=== PATIENT | male | born 1950 | race Caucasian/White ===

== ENCOUNTER 2019-04-26 03:29 | Emergency (ER) | payer OTHER ==
[2019-04-26 04:04] LABS: Absolute Lymphocytes (CBC) 1.5 K/uL (0.7-4.9); Basophils % 0.4 % (0-1.3); Hematocrit 39.5 % (39.6-49.0); MPV 7.7 fL (7.6-11.3); Protime INR 0.99; RBC Red Blood Cell Count 4.64 M/uL (4.33-5.43)
[2019-04-26] MEDS ORDERED: NA CHLORIDE 0.9% 500 ML ONE (04:18)
[2019-04-26 04:22] LABS: ALT/SGPT 44 U/L (12-78); AST/SGOT 32 U/L (15-37); Albumin 3.8 g/dL (3.4-5.0); Alkaline Phosphatase 52 U/L (45-117); BUN Blood Urea Nitrogen 14 mg/dL (7-18); Bicarbonate 28 mmol/L (21-32); Bilirubin Direct 0.2 mg/dL (0-0.2); Bilirubin Total 0.6 mg/dL (0.2-1.0); Glucose Level 94 mg/dL (74-106); Magnesium 2.1 mg/dL (1.8-2.4); NT PRO-BNP 797 pg/mL (<125); Potassium 3.8 mmol/L (3.5-5.1); Protein, Total 6.9 g/dL (6.4-8.2); Sodium Level 141 mmol/L (136-145); Troponin (Emerg Dept Use Only) < 0.02 ng/mL (0.0-0.045)
--- NOTE | 2019-04-26 05:55 | EDPHYS ---
Physician Documentation [facility] Name: Nafisa Paulson Age: 68 yrs Sex: Male : 1950 Arrival Date: 04/26/2019 Time: 03:31 Bed 3 Private MD: ED Physician Juan Canada HPI: 04/25 03:46 This 68 yrs old Male presents to ER via EMS with complaints of Fall Injury. scarlett 03:46 Details of fall: The patient fell from a height, off furniture. Onset: The scarlett symptoms/episode began/occurred just prior to arrival. Associated injuries: The patient sustained left eye, painful injury. Historical: - Allergies: 03:35 No Known Allergies; rr5 - Home Meds: 03:35 aspirin 81 mg Oral chew 1 tab once daily [Active]; Aricept Oral [Active]; acetaminophen rr5 325 mg Oral tab 1 tab [Active]; citalopram oral [Active]; Docusate Sodium Oral [Active]; fenofibrate oral oral [Active]; Hydrocortisone Topical [Active]; Lisinopril Oral [Active]; Melatonin Oral [Active]; metoprolol tartrate 50 mg Oral tab [Active]; Natural Tears (PF) ophthalmic [Active]; Neurontin Oral [Active]; Norvasc Oral [Active]; oxybutynin chloride Oral [Active]; Pepcid Oral [Active]; senna oral oral [Active]; Vitamin D Oral [Active]; - PMHx: 03:35 CVA; Dementia; Depression; Diabetes - IDDM; GERD; HLD; Hypertension; Schizophrenia; rr5 - Immunization history:: Adult Immunizations up to date. - Social history:: Smoking status: unknown. - Immunization history: Last tetanus immunization: unknown. - Family history:: not pertinent. ROS: 03:46 Constitutional: Negative for fever, chills, and weight loss, ENT: Negative for injury, scarlett pain, and discharge, Neck: Negative for injury, pain, and swelling, Cardiovascular: Negative for chest pain, palpitations, and edema, Respiratory: Negative for shortness of breath, cough, wheezing, and pleuritic chest pain, Abdomen/GI: Negative for abdominal pain, nausea, vomiting, diarrhea, and constipation, Back: Negative for injury and pain, : Negative for injury, bleeding, discharge, and swelling, MS/Extremity: Negative for injury and deformity, Skin: Negative for injury, rash, and discoloration, Neuro: Negative for headache, weakness, numbness, tingling, and seizure. 03:46 Eyes: Positive for Exam: 03:46 Constitutional: This is a well developed, well nourished patient who is awake, alert, scarlett and in no acute distress. Head/Face: Normocephalic, atraumatic. ENT: Nares patent. No nasal discharge, no septal abnormalities noted. Tympanic membranes are normal and external auditory canals are clear. Oropharynx with no redness, swelling, or masses, exudates, or evidence of obstruction, uvula midline. Mucous membranes moist. Neck: Trachea midline, no thyromegaly or masses palpated, and no cervical lymphadenopathy. Supple, full range of motion without nuchal rigidity, or vertebral point tenderness. No Meningismus. Chest/axilla: Normal chest wall appearance and motion. Nontender with no deformity. No lesions are appreciated. Cardiovascular: Regular rate and rhythm with a normal S1 and S2. No gallops, murmurs, or rubs. Normal PMI, no JVD. No pulse deficits. Respiratory: Lungs have equal breath sounds bilaterally, clear to auscultation and percussion. No rales, rhonchi or wheezes noted. No increased work of breathing, no retractions or nasal flaring. Abdomen/GI: Soft, non-tender, with normal bowel sounds. No distension or tympany. No guarding or rebound. No evidence of tenderness throughout. Back: No spinal tenderness. No costovertebral tenderness. Full range of motion. Male : Normal genitalia with no discharge or lesions. Skin: Warm, dry with normal turgor. Normal color with no rashes, no lesions, and no evidence of cellulitis. 03:46 Eyes: Periorbital structures: appear normal, no acute changes, Pupils: no acute changes, equal, round, and reactive to light and accomodation, Extraocular movements: intact throughout, Conjunctiva: normal, no acute changes, Corneas: are normal, no acute changes, Sclera: no appreciated abnormality, funduscopic exam reveals no obvious abnormalities, no acute changes, discs that are sharp, no appreciated papilledema, no retinal detachment, no enlargement of the optic cup, no appreciated A-V knicking, no evidence of cotton wool exudatates. 05:54 Eyes: Anterior chamber: normal, no acute changes, Lids and lashes: appear normal, no scarlett acute changes, Visual daley: no acute changes, Nystagmus: is not appreciated. Vital Signs: 03:35 BP 147 / 69; Pulse 50; Resp 17; Temp 97.9; Pulse Ox 98% ; Pain 0/10; rr5 04:20 BP 141 / 70; Pulse 51; Resp 11; Pulse Ox 97% ; Weight 86.18 kg; Height 6 ft. 0 in. rr5 (182.88 cm); 05:00 BP 137 / 67; Pulse 55; Resp 15; Temp 97.8; Pulse Ox 98% ; rr5 05:50 BP 154 / 67; Pulse 52; Resp 17; Temp 97.5; Pulse Ox 96% ; rr5 06:53 BP 146 / 69; Pulse 56; Resp 17; Temp 97.8; Pulse Ox 99% ; rr5 04:20 Body Mass Index 25.77 (86.18 kg, 182.88 cm) rr5 Seven Coma Score: 03:35 Eye Response: spontaneous(4). Verbal Response: oriented(5). Motor Response: obeys rr5 commands(6). Total: 15. Trauma Score (Adult): 03:35 Eye Response: spontaneous(1); Verbal Response: oriented(1); Motor Response: obeys rr5 commands(2); Systolic BP: > 89 mm Hg(4); Respiratory Rate: 10 to 29 per min(4); Welaka Score: 15; Trauma Score: 12 05:00 Eye Response: spontaneous(1); Verbal Response: oriented(1); Motor Response: obeys rr5 commands(2); Systolic BP: > 89 mm Hg(4); Respiratory Rate: 10 to 29 per min(4); Welaka Score: 15; Trauma Score: 12 MDM: 03:32 Patient medically screened. [facility] 03:48 Data reviewed: vital signs, nurses notes, lab test result(s), EKG, radiologic studies, [facility] CT scan, plain films. 04/25 03:46 Order name: Basic Metabolic Panel; Complete Time: 05:48 [facility] 04/25 03:46 Order name: CBC with Diff; Complete Time: 05:48 [facility] 04/25 03:46 Order name: LFT's; Complete Time: 05:48 [facility] 04/25 03:46 Order name: Magnesium; Complete Time: 05:48 [facility] 04/25 03:46 Order name: NT PRO-BNP; Complete Time: 05:48 [facility] 04/25 03:46 Order name: PT-INR; Complete Time: 05:48 [facility] 04/25 03:46 Order name: Troponin (emerg Dept Use Only); Complete Time: 05:49 [facility] 04/25 03:46 Order name: XRAY Chest (1 view) [facility] 04/25 03:46 Order name: EKG; Complete Time: 03:47 [facility] 04/25 03:46 Order name: Cardiac monitoring; Complete Time: 04:13 [facility] 04/25 03:46 Order name: EKG - Nurse/Tech; Complete Time: 04:13 [facility] 04/25 03:46 Order name: CT Head C Spine [facility] 04/25 03:51 Order name: Glucose, Ancillary Testing; Complete Time: 05:49 EDMS 04/25 03:46 Order name: IV Saline Lock; Complete Time: 03:49 [facility] 04/25 03:46 Order name: Labs collected and sent; Complete Time: 03:50 [facility] 04/25 03:46 Order name: O2 Per Protocol; Complete Time: 03:50 [facility] 04/25 03:46 Order name: O2 Sat Monitoring; Complete Time: 03:50 [facility] Administered Medications: 04:23 Drug: NS 0.9% 500 ml Route: IV; Rate: bolus; Site: right antecubital; rr5 05:15 Follow up: Response: No adverse reaction; IV Status: Completed infusion; IV Intake: rr5 500ml Disposition: 04/26/19 05:54 Discharged to Home. Impression: Fall due to bumping against object, Superficial injury of head. - Condition is Stable. - Discharge Instructions: Head Injury, Adult, Fall Prevention in the Home, Cajg-[id number], Head Injury, Adult, [id number]-[id number]. - Medication Reconciliation Form, Thank You Letter, Antibiotic Education, Prescription Opioid Use form. - Follow up: Private Physician; When: 2 - 3 days; Reason: Recheck today's complaints, Continuance of care, Re-evaluation by your physician. Follow up: Ramana Zaman MD; When: 2 - 3 days; Reason: Recheck today's complaints, Re-evaluation by your physician. - Problem is new. - Symptoms have improved. Signatures: Dispatcher [employer] EDJuan Chandler MD MD cha Leal, Jahala, RN RN jl7 Zeus Kang RN RN rr5 Corrections: (The following items were deleted from the chart) 05:55 05:54 04/26/2019 05:54 Discharged to Home. Impression: Fall due to bumping against scarlett object. Condition is Stable. Forms are Medication Reconciliation Form, Thank You Letter, Antibiotic Education, Prescription Opioid Use. Follow up: Private Physician; When: 2 - 3 days; Reason: Recheck today's complaints, Continuance of care, Re-evaluation by your physician. Follow up: Ramana Zaman; When: 2 - 3 days; Reason: Recheck today's complaints, Re-evaluation by your physician. Problem is new. Symptoms have improved. [facility] 07:55 05:55 04/26/2019 05:54 Discharged to Home. Impression: Fall due to bumping against jl7 object; Superficial injury of head. Condition is Stable. Discharge Instructions: Head Injury, Adult, Fall Prevention in the Home, Uukn-mx-Eluk, Head Injury, Adult, Iooj-vo-Bvvk. Forms are Medication Reconciliation Form, Thank You Letter, Antibiotic Education, Prescription Opioid Use. Follow up: Private Physician; When: 2 - 3 days; Reason: Recheck today's complaints, Continuance of care, Re-evaluation by your physician. Follow up: Ramana Zaman; When: 2 - 3 days; Reason: Recheck today's complaints, Re-evaluation by your physician. Problem is new. Symptoms have improved. [facility]
--- NOTE | 2019-04-26 05:55 | ER ---
Nurse's Notes [facility] Yasmani Name: Nafisa Paulson Age: 68 yrs Sex: Male : 1950 Arrival Date: 04/26/2019 Time: 03:31 Bed 3 Private MD: Diagnosis: Fall due to bumping against object;Superficial injury of head Presentation: 04/25 03:35 Chief complaint: EMS states: had a fall tonight between 9 pm-3am hit his left eye and rr5 complaining of blurred vision on his left eye. Coronavirus screen: The patient has NOT traveled to a country currently being monitored by the [facility] within the last 14 days. Proceed with normal triage procedures. Ebola Screen: Patient negative for fever greater than or equal to 101.5 degrees Fahrenheit, and additional compatible Ebola Virus Disease symptoms Patient denies exposure to infectious person. Patient denies travel to an Ebola-affected area in the 21 days before illness onset. Initial Sepsis Screen: Does the patient meet any 2 criteria? No. Patient's initial sepsis screen is negative. Does the patient have a suspected source of infection? No. Patient's initial sepsis screen is negative. Risk Assessment: Do you want to hurt yourself or someone else? Patient reports no desire to harm self or others. 03:35 Method Of Arrival: EMS: [facility] rr5 03:35 Acuity: JAVIER 3 rr5 03:35 Note patient had a fall incident 3 days ago hit hit nose bridge area. LOC (-) , has rr5 left left sided deficit stated by EMS. Onset of symptoms was April 25, 2019. Transition of care: patient was received from another setting of care (long-term care facility), [facility]. 03:35 Mechanism of Injury: Fall out of chair. rr5 03:35 Care prior to arrival: None. Trauma event details: Injury occurred in the county [place] [address], Injury occurred: home health Injury occurred: April 25, 2019. Trauma Activation: Not Applicable Physician: ED Physician; Name: ; Notified At: ; Arrived At: Physician: General Surgeon; Name: ; Notified At: ; Arrived At: Physician: Radiology; Name: ; Notified At: ; Arrived At: Physician: Respiratory; Name: ; Notified At: ; Arrived At: Physician: Lab; Name: ; Notified At: ; Arrived At: Historical: - Allergies: 03:35 No Known Allergies; rr5 - Home Meds: 03:35 aspirin 81 mg Oral chew 1 tab once daily [Active]; Aricept Oral [Active]; acetaminophen rr5 325 mg Oral tab 1 tab [Active]; citalopram oral [Active]; Docusate Sodium Oral [Active]; fenofibrate oral oral [Active]; Hydrocortisone Topical [Active]; Lisinopril Oral [Active]; Melatonin Oral [Active]; metoprolol tartrate 50 mg Oral tab [Active]; Natural Tears (PF) ophthalmic [Active]; Neurontin Oral [Active]; Norvasc Oral [Active]; oxybutynin chloride Oral [Active]; Pepcid Oral [Active]; senna oral oral [Active]; Vitamin D Oral [Active]; - PMHx: 03:35 CVA; Dementia; Depression; Diabetes - IDDM; GERD; HLD; Hypertension; Schizophrenia; rr5 - Immunization history:: Adult Immunizations up to date. - Social history:: Smoking status: unknown. - Immunization history: Last tetanus immunization: unknown. - Family history:: not pertinent. Screenin:30 Abuse screen: Denies threats or abuse. Denies injuries from another. Nutritional rr5 screening: No deficits noted. Tuberculosis screening: No symptoms or risk factors identified. Fall Risk Fall in past 12 months (25 points). IV access (20 points). Ambulatory Aid- None/Bed Rest/Nurse Assist (0 pts). Gait- Impaired (20 pts.). Mental Status- Oriented to own ability (0 pts). Total Esqueda Fall Scale indicates High Risk Score (45 or more points). Fall prevention measures have been instituted. Side Rails Up X 2 Placed Close to Nursing Station Frequent Obs/Assessments Occuring As available patient and family educated on Fall Prevention Program and Strategies. Primary Survey: 03:35 NO uncontrolled hemorrhage observed. A: The patient is alert. Airway: patent, No rr5 supplemental oxygen in use on arrival. Oral cavity: clear, gag reflex present, Trachea midline. 03:35 Breathing/Chest: Respiratory pattern: regular, Respiratory effort: spontaneous, rr5 unlabored, Breath sounds: clear, bilaterally. Chest inspection: symmetrical rise and fall of the chest. Circulation: Cardiac rhythm: sinus bradycardia Heart tones present. Pulses: palpable right radial artery and left radial artery. Skin color: pink, Skin temperature: warm, dry. Disability Alert. Exposure/Environment: There is no evidence of uncontrolled external bleeding. Obvious injury(ies) are noted at this time: small abrasion to nose bridge area sustained from previous fall 3 days ago. mild redness left eye noted. A warming method has been applied: A warm blanket has been provided to the patient. 04:28 Reassessment Airway Airway Patent Breathing/Chest Respiratory pattern Regular rr5 Respiratory effort Spontaneous Unlabored Breath sounds Clear Chest inspection Symmetrical Circulation Heart rhythm Sinus steven Heart tones Present Pulses Palpable Color Tolu Temperature Warm Dry Disability Alert. Secondary Survey: 03:35 HEENT: Head No injury/deformity Face Other abrasion on nose bridge Eyes: Other mild rr5 redness on the left eye Ears: clear bilaterally. Nose: clear to bilateral nares. Throat: is clear with gag reflex present. 03:35 Gastrointestinal: No deficits noted. : No deficits noted. Musculoskeletal: Capillary rr5 refill < 3 seconds, stiff left arm noted. patient known case of left side deficit from previous stroke.'. Assessment: 03:35 General: Appears in no apparent distress. comfortable, Behavior is calm, cooperative, rr5 appropriate for age. 03:35 Pain: Denies pain. Neuro: Level of Consciousness is awake, alert, obeys commands, rr5 Oriented to person, place, situation. Cardiovascular: Capillary refill < 3 seconds Patient's skin is warm and dry. Respiratory: Airway is patent Respiratory effort is even, unlabored, Respiratory pattern is regular, symmetrical. GI: No signs and/or symptoms were reported involving the gastrointestinal system. : No signs and/or symptoms were reported regarding the genitourinary system. EENT: Eyes mild redness left eye. Derm: Skin is intact, is healthy with good turgor, Skin temperature is warm Wound noted bridge of nose Wound is abrasion. Musculoskeletal: Circulation, motion, and sensation intact. Capillary refill < 3 seconds, Range of motion: limited in left shoulder and left elbow stiffness on the left arm noted. left sided deficit noted. 05:00 Reassessment: Patient appears in no apparent distress at this time. Patient is alert, rr5 oriented x 3, equal unlabored respirations, skin warm/dry/pink. awaiting for CT result. Patient denies pain at this time. 05:48 Reassessment: Patient appears in no apparent distress at this time. Patient is alert, rr5 oriented x 3, equal unlabored respirations, skin warm/dry/pink. assisted at bedside patient able to pee on the urinal. 06:03 Reassessment: No changes from previously documented assessment. patient for discharge rr5 called [facility] alyssa nagy [employer] staff to arrange transport, she said she tell his nurse to arrange the transportation. 06:52 Reassessment: Patient appears in no apparent distress at this time. follow up to [facility] spoke staff nurse jessica, she said transportation will arrive around 0800H. Vital Signs: 03:35 BP 147 / 69; Pulse 50; Resp 17; Temp 97.9; Pulse Ox 98% ; Pain 0/10; rr5 04:20 BP 141 / 70; Pulse 51; Resp 11; Pulse Ox 97% ; Weight 86.18 kg; Height 6 ft. 0 in. rr5 (182.88 cm); 05:00 BP 137 / 67; Pulse 55; Resp 15; Temp 97.8; Pulse Ox 98% ; rr5 05:50 BP 154 / 67; Pulse 52; Resp 17; Temp 97.5; Pulse Ox 96% ; rr5 06:53 BP 146 / 69; Pulse 56; Resp 17; Temp 97.8; Pulse Ox 99% ; rr5 04:20 Body Mass Index 25.77 (86.18 kg, 182.88 cm) rr5 Austin Coma Score: 03:35 Eye Response: spontaneous(4). Verbal Response: oriented(5). Motor Response: obeys rr5 commands(6). Total: 15. Trauma Score (Adult): 03:35 Eye Response: spontaneous(1); Verbal Response: oriented(1); Motor Response: obeys rr5 commands(2); Systolic BP: > 89 mm Hg(4); Respiratory Rate: 10 to 29 per min(4); Austin Score: 15; Trauma Score: 12 05:00 Eye Response: spontaneous(1); Verbal Response: oriented(1); Motor Response: obeys rr5 commands(2); Systolic BP: > 89 mm Hg(4); Respiratory Rate: 10 to 29 per min(4); Austin Score: 15; Trauma Score: 12 ED Course: 03:30 Inserted saline lock: 18 gauge in right antecubital area, using aseptic technique. rr5 ,using aseptic technique. inserted by aaron [facility] Blood collected. 03:31 Patient arrived in ED. ds1 03:32 Juan Canada MD is Attending Physician. scarlett 03:35 Zeus Kang, CLARISSE is Primary Nurse. rr5 03:35 Arm band placed on right wrist. rr5 03:35 Patient has correct armband on for positive identification. Placed in gown. Bed in low rr5 position. Call light in reach. Side rails up X2. 03:35 Patient maintains SpO2 saturation greater than 95% on room air. rr5 03:39 Triage completed. rr5 03:43 Thermoregulation: warm blanket given to patient. rr5 03:50 Troponin (emerg Dept Use Only) Sent. ds4 03:50 PT-INR Sent. ds4 03:50 Basic Metabolic Panel Sent. ds4 03:51 CBC with Diff Sent. ds4 03:51 LFT's Sent. ds4 03:51 Magnesium Sent. ds4 03:51 NT PRO-BNP Sent. ds4 03:59 XRAY Chest (1 view) In Process Unspecified. EDMS 04:30 CT Head C Spine In Process Unspecified. EDMS 05:12 No provider procedures requiring assistance completed. rr5 05:53 Ramana Zaman MD is Referral Physician. scarlett 07:47 IV discontinued, intact, bleeding controlled, No redness/swelling at site. Pressure dh3 dressing applied. 07:54 IV discontinued, intact, bleeding controlled, No redness/swelling at site. Pressure jl7 dressing applied. Administered Medications: 04:23 Drug: NS 0.9% 500 ml Route: IV; Rate: bolus; Site: right antecubital; rr5 05:15 Follow up: Response: No adverse reaction; IV Status: Completed infusion; IV Intake: rr5 500ml Intake: 05:15 IV: 500ml; Total: 500ml. rr5 07:55 PO: 0ml; IV: 0ml; Tubes: 0ml (); Total: 500ml. jl7 Output: 05:49 Urine: 250ml (Voided); Total: 250ml. rr5 07:55 Urine: 0ml; Gastric: 0ml; Stool: 0; EBL: 0ml; Drainage: 0ml; Other: 0; Total: 250ml. jl7 Outcome: 05:54 Discharge ordered by MD. pantoja 07:53 Patient's length of stay was not longer than 2 hours. Marek 07:53 Discharged to [facility]. jl7 07:53 Condition: stable 07:53 Discharge instructions given to patient, [facility], Instructed on discharge instructions, follow up and referral plans. Demonstrated understanding of instructions, follow-up care. 07:55 Patient left the ED. jl7 Signatures: Dispatcher [employer] EDIL Juan Canada MD MD cha Sanford, Demi ds1 Mata Burrows ds4 Pierce Johnson RN RN jl7 Lizzy Madden 3 Zeus Kang, RN RN rr5 Corrections: (The following items were deleted from the chart) 05:12 03:35 Musculoskeletal: Circulation, motion, and sensation intact. Capillary refill < 3 rr5 seconds, rr5
--- NOTE | 2019-04-26 07:28 | EKG ---
Test Date: 2019-04-26 Test Time: 04:03:22 Oil Well Driller: EMELINA MEASUREMENT RESULTS: Intervals: Rate: 52 HI: 180 QRSD: 80 QT: 482 QTc: 448 [place]: P: 4 HI: 180 QRS: -25 T: 10 INTERPRETIVE STATEMENTS: Sinus bradycardia Moderate voltage criteria for LVH, may be normal variant Borderline ECG Compared to ECG 05/21/2015 17:13:44 No significant changes Electronically Signed On 04-26-19 07:27:22 CDT by Ammon Loaiza
[2019-04-26 08:10] VITALS: BP 146/69; TEMP 97.8; O2SAT 99
--- NOTE | 2019-04-26 08:44 | RAD REPORT ---
EXAM DESCRIPTION: RAD - Chest Single View - 04/26/2019 3:58 am CLINICAL HISTORY: COUGH COMPARISON: May 2015 portable TECHNIQUE: AP portable chest image was obtained 04/26/2019 3:58 am . FINDINGS: Lung volumes are low. Retrocardiac left base assessment is limited. Left hemidiaphragm is not obscured. Heart size is upper normal for body habitus and shallow inspiration. Pulmonary vasculat ure within normal limits. No measurable pleural effusion and no pneumothorax. No acute bony abnormali ty seen. No acute aortic findings suspected. IMPRESSION: No acute cardiopulmonary finding confirmed on this study. Failure and volume overload ar e not suspected. Retrocardiac left base assessment is limited on this examination.
--- NOTE | 2019-04-26 12:03 | RAD REPORT ---
EXAM DESCRIPTION: CT - [id number] - 04/26/2019 5:57 am CLINICAL HISTORY: The patient is 68 years old and is Male; PAIN TECHNIQUE: Axial computed tomography images of the head/brain and cervical spine without intravenous contrast. Sagittal and coronal reformatted images were created and reviewed. This CT exam was pe rformed using one or more of the following dose reduction techniques: automated exposure control, a djustment of the mA and/or kV according to patient size, and/or use of iterative reconstruction techn ique. COMPARISON: No relevant prior studies available. FINDINGS: BRAIN: There is diffuse cerebral atrophy present, consistent with this patient's age. No intracranial hemorrhage, mass effect, or midline shift is seen. There are no extra-axial fluid col lections. There is patchy hypoattenuation of the deep white matter which is non-specific, but most likely owing to chronic small vessel ischemic change in a patient of this age group. VENTRICLES: Unremarkable. No ventriculomegaly. SKULL: No acute fracture. SINUSES: Unremarkable as visualized. No acute sinusitis. MASTOID AIR CELLS: Unremarkable as visualized. No mastoid effusion. VERTEBRAE: The vertebral body heights and alignment are maintained. No acute fracture. DISCS/SPINAL CANAL/NEURAL FORAMINA: Multilevel intervertebral disc space narrowing with osteophy te formation and facet arthropathy is present. Neural foraminal narrowing is noted at multiple levels secondary to disc osteophyte complexes. SOFT TISSUES: The soft tissues are normal. LUNG APICES: Unremarkable as visualized. IMPRESSION: 1. No acute intracranial findings. 2. Spondylosis of the cervical spine without acute findings. Electronically signed by: Elisa Bullock MD 04/26/2019 5:06 AM CDT Due to temporary technical issues with the PACS/Fluency reporting system, reports are being signed by the in house radiologist as a courtesy to ensure prompt reporting. The interpreting radiologist is f ully responsible for the content of the report.
== END 2019-04-26 07:55 | disposition home or self-care (01) ==
LOC: ER 03:29
DX: S00.90XA Unspecified superficial injury of unspecified part of head, initial encounter (principal); W08.XXXA Fall from other furniture, initial encounter; Y93.9 Activity, unspecified; Y92.9 Unspecified place or not applicable; I10 Essential (primary) hypertension; E11.9 Type 2 diabetes mellitus without complications; F03.90 Unspecified dementia, unspecified severity, without behavioral disturbance, psychotic disturbance, mood disturbance, and anxiety; F32.9 Major depressive disorder, single episode, unspecified; Z79.82 Long term (current) use of aspirin
CPT/HCPCS: 93005; 85025; 80048; 36415; 83735; 85610; 82947; 80076; 84484; 83880; 70450; 72125; 71045; 96360; 99284; J7040

== ENCOUNTER 2019-07-24 12:36 | Emergency (ER) | payer OTHER ==
--- OUTSIDE RECORDS SUMMARY | 2019-07-24 12:40 | XMS REPORT | Continuity of Care Document ---
:1950 Author Organization [facility] t Address [address] [place] [id number] Care Team Providers Name Role Phone DR NEVAEH Attending Clinician Unavailable DR NEVAEH Admitting Clinician Unavailable Problems This patient has no known problems. Allergies, Adverse Reactions, Alerts This patient has no known allergies or adverse reactions. Medications This patient has no known medications. Procedures This patient has no known procedures. Encounters Start End Encounter Admission Attending Care Care Encounter Source Date/Time Date/Time Type Type Clinicians Facility Department ID 2019-06-03 2019-06-17 Inpatient E [facility] [id number] [address] [place] [address] 17:10:00 11:05:00 [facility] Results Test Description Test Time Test Comments Results Result Comments Source VALPROIC ACID (DEPAKENE) 2019-06-13 07:05:00 Test Item Value Reference Range Interpretation Comme nts VALP ACID (test code = 95A) 63.0 ug/mL 50.0-100.0 VALPROIC ACID (DEPAKENE)2019-06-09 06:51:00 Test Item Value Reference Range Interpretation Comments VALP ACID (test code = 95A) 57.5 ug/mL 50.0-100.0 AMMONIA [id number] 05:25:00 Test Item Value Reference Range Interpretation Comments AMMONIA (test code = 54A) 31 umol/L 11-32 B12 [id number] 20:14:00 Test Item Value Reference Range Interpretation Comments VIT B12 (test code = A60) 464.0 pg/mL 180.0-914.0 [id number] 20:14:00 Test Item Value Reference Range Interpretation Comments FOLATE (test code = A75) 8.1 ng/mL 3.1-17.5 THYROID PANEL/SCREEN (TSH)2019-06-03 20:04:00 Test Item Value Reference Range Interpretation Comments TSH (test code = A57) 0.541 uIU/mL 0.358-3.740 [id number] 20:03:00 Test Item Value Reference Range Interpretation Comments PREALBUMIN (test code = 08E) 18 mg/dL 18-38 LIPID [id number] 20:03:00 Test Item Value Reference Range Interpretation Comments CHOLESTROL (test code = 44A) 121 mg/dL 140-200 L TRIGLYCERI (test code = 42B) 96 mg/dL <=149 HDL (test code = 83D) 34.0 mg/dL 40.0-60.0 L LDL (test code = 34B) 76 mg/dL <=99 CHL/HDL (test code = CHR) 3.6 0.0-3.4 H VALPROIC ACID (DEPAKENE)2019-06-03 19:59:00 Test Item Value Reference Range Interpretation Comments VALP ACID (test code = 95A) 65.0 ug/mL 50.0-100.0 [id number] 19:45:00 Test Item Value Reference Range Interpretation Comments MAGNESIUM (test code = 48A) 1.8 mg/dL 1.8-2.4 [id number] 19:44:00 Test Item Value Reference Range Interpretation Comments Hb A1C % (test code = HBA) 5.2 % 4.2-6.3 [id number] 16:30:00 Test Item Value Reference Range Interpretation Comments ACETAMINPH (test code = 94M) <10.0 ug/mL 10.0-30.0 [id number] 16:23:00 Test Item Value Reference Range Interpretation Comments SALICYLATE (test code = 94B) <1.7 mg/dL 2.8-20.0 L ALCOHOL BLOOD (ETOH)2019-06-03 16:23:00 Test Item Value Reference Range Interpretation Comments ETOH (test code = HALC) ETHANOL The result is to be used only for medical purposes ALCOHOL (test code = <10 mg/dL <=10 56A) COMPREHENSIVE METABOLIC [id number] 16:22:00 Test Item Value Reference Range Interpretation Comments GLUCOSE (test code = 113 mg/dL 75-100 H 06D) SODIUM (test code = 129 mmol/L 136-145 L 01A) POTASSIUM (test code = 4.3 mmol/L 3.6-5.1 01B) CHLORIDE (test code = 96 mmol/L 98-107 L 04A) CO2 (test code = 02A) 27 mmol/L 22-32 ANION GAP (test code = 10.3 mmol/L ANG) BUN (test code = 05D) 12 mg/dL 7-18 CREATININE (test code 1.0 mg/dL 0.7-1.3 = 03E) GFR (test code = GFR) 78 mL/min/1.73m\S\2 >=90 L GFR 91 mL/min/1.73m\S\2 >=90 (test code = GFRAA) EGFR (test code = eGFR BY CKD-EPI EGFR) CALCULATION IS NOT RECOMMENDED FOR PATIENTS UNDER 18 YEARS OF AGE. BUN/CREA (test code = 12 12-20 BCR) CALCIUM (test code = 9.1 mg/dL 8.3-9.5 09D) BILI TOTAL (test code 0.5 mg/dL 0.2-1.0 = 11A) PROTEIN (test code = 6.5 g/dL 6.4-8.2 07D) ALBUMIN (test code = 3.2 g/dL 3.5-4.8 L 08D) GLOBULIN (test code = 3.3 g/dL 1.5-3.8 GLB) ALB/GLOB (test code = 1.0 1.0-2.6 AGRR) ALK PHOS (test code = 92 IU/L 42-121 35A) AST (test code = 30A) 30 IU/L <=42 ALT (test code = 31A) 37 IU/L <=78 CARDIAC [id number] 16:15:00 Test Item Value Reference Range Interpretation Comments TROPONIN I (test code = A84) <0.015 ng/mL 0.000-0.045 AMMONIA [id number] 16:08:00 Test Item Value Reference Range Interpretation Comments AMMONIA (test code = 54A) 77 umol/L 11-32 H CBC (INCLUDES AUTOMATED DIFFERENTIAL)2019-06-03 15:55:00 Test Item Value Reference Range Interpretation Comments WBC (test code = WBC) 7.5 10\S\3/uL 4.5-11.0 RBC (test code = RBC) 4.22 10\S\6/uL 3.80-5.80 HGB (test code = HBG) 12.4 g/dL 14.0-18.0 L HCT (test code = HCT) 35.8 % 35.0-46.0 MCV (test code = MCV) 84.8 fL 80.0-94.0 MCH (test code = MCH) 29.4 pg 27.0-31.0 MCHC (test code = MCHC) 34.6 g/dL 32.0-36.0 RDW (test code = RDW) 13.3 % 11.5-14.5 PLT (test code = PLT) 205 10\S\3/uL 130-400 MPV (test code = MPV) 8.7 fL 9.4-12.4 L NEUTROP # (test code = NE#) 5.7 10\S\3/uL 2.0-8.0 LYMPH # (test code = LY#) 0.9 10\S\3/uL 1.2-4.0 L MONOCYTE # (test code = MO#) 0.7 10\S\3/uL 0.0-1.1 EOSINOPH # (test code = EO#) 0.2 10\S\3/uL 0.0-0.7 BASOPHIL # (test code = BA#) 0.0 10\S\3/uL 0.0-0.3 IG # (test code = IG#) 0.03 10\S\3/uL 0.00-0.06 NRBC # (test code = NRBC#) 0.00 10\S\3/uL 0.00-0.01 NEUTROPH % (test code = NE%) 75.9 % 35.0-73.0 H LYMPH % (test code = LY%) 11.8 % 20.0-55.0 L MONO % (test code = MO%) 9.1 % 2.5-10.0 EOSINOPH % (test code = EO%) 2.8 % 0.0-5.0 BASOPHIL % (test code = BA%) 0.0 % 0.0-2.0 IG % (test code = IG%) 0.4 % 0.0-0.8 NRBC% (test code = NRBC%) 0.0 % 0.0-0.2 MANDIFF (test code = MDIFF) NO NO URINALYSIS WITH [id number] 15:15:00 Test Item Value Reference Range Interpretation Comments COLOR (test code = COLU) YELLOW YELLOW CLARITY (test code = CLA) CLOUDY CLEAR A GLUCOSE UR (test code = UA GLUCOSE) NEGATIVE NEGATIVE BILI UR (test code = BILE) NEGATIVE NEGATIVE KETONES UR (test code = CONNIE) NEGATIVE NEGATIVE SP GRAVITY (test code = SPGR) 1.012 1.005-1.030 PH UR (test code = PH) 7.0 4.5-8.0 PROTEIN UR (test code = PU) NEGATIVE NEGATIVE UROBIL UR (test code = UROQ) 1.0 EU/dL 0.2-1.0 NITRITE UR (test code = NITRITE) NEGATIVE NEGATIVE BLOOD UR (test code = UA BLOOD) NEGATIVE NEGATIVE LEUK ES UR (test code = LEUK) 3+ NEGATIVE A WBC UR (test code = UWBC) 3 /HPF 0-3 RBC UR (test code = URBC) 0 /HPF 0-2 EPITH UR (test code = UEPC) FEW /LPF NONE A BACTERIA UR (test code = UBACT) MANY /HPF NONE A CAST UR (test code = CAST) /LPF NONE CRYSTAL UR (test code = CRYU) / LPF NONE MUCUS UR (test code = MUC) / HPF NONE AMORPH UR (test code = MYNOR) / HPF NONE TRICH UR (test code = UTRICH) /HPF NONE YEAST UR (test code = UY) /HPF NONE SPERM UR (test code = USPERM) /HPF NONE DRUGS OF [id number] 15:15:00 Test Item Value Reference Range Interpretation Comments DRUG SCRN (test code URINE DRUG SCREEN = HDOA) This is an unconfirmed screening result and should not be used for non-medical purposes CANNABINOD (test code Negative NEGATIVE = 88C) AMPHETAMINE (test Negative NEGATIVE code = 84A) BENZODIAZP (test code Negative NEGATIVE = 86A) BARBITURAT (test code Negative NEGATIVE = 85A) OPIATES (test code = Negative NEGATIVE 92B) COCAINE (test code = Negative NEGATIVE 87A) PHENCYCLID (test code Negative NEGATIVE = 66A) METHADONE (test code Negative NEGATIVE = 64A) VERONICA (test code = VERONICA.) *URINE DRUG SCREEN Cut-off values are as follows: Cannabinoids 50 ng/mL Cocaine 300 ng/mL Amphetamines 1000 ng/mL Phencyclidine 25 ng/mL Benzodiazepines 200 ng.mL Methadone 300 ng/mL Barbiturates 200 ng/mL Opiates 2000 ng/mL
--- NOTE | 2019-07-24 13:15 | RAD REPORT ---
EXAM DESCRIPTION: CT - Head Brain Wo Cont - 07/24/2019 1:03 pm CLINICAL HISTORY: Dizziness;Trauma Fall, trauma, head injury COMPARISON: Head Brain Wo Cont dated 05/21/2015 TECHNIQUE: All CT scans are performed using dose optimization technique as appropriate and may inclu de automated exposure control or mA/KV adjustment according to patient size. FINDINGS: No intracranial hemorrhage, hydrocephalus or extra-axial fluid collection.Moderate brain a trophy seen.No areas of brain edema or evidence of midline shift. The paranasal sinuses and mastoids are clear. The calvarium is intact. IMPRESSION: No acute intracranial abnormality.
[2019-07-24] MEDS ORDERED: NA CHLORIDE 0.9% 1,000 ML ONE (13:17)
[2019-07-24 13:32] LABS: Basophils % 0.3 % (0-1.3); Hematocrit 34.4 % (39.6-49.0); Lymphocytes % 16.9 % (15.3-44.8); MPV 7.6 fL (7.6-11.3); RBC Red Blood Cell Count 4.04 M/uL (4.33-5.43)
[2019-07-24 13:49] LABS: Albumin 3.1 g/dL (3.4-5.0); Bilirubin Direct 0.2 mg/dL (0-0.2); Bilirubin Total 0.4 mg/dL (0.2-1.0); Magnesium 1.8 mg/dL (1.8-2.4); Potassium 4.2 mmol/L (3.5-5.1)
--- NOTE | 2019-07-24 13:55 | EDPHYS ---
Physician Documentation [facility] Name: Nafisa Paulson Age: 68 yrs Sex: Male : 1950 Arrival Date: 07/24/2019 Time: 12:35 Bed 2 Private MD: ED Physician Juan Canada HPI: 07/23 13:24 This 68 yrs old Male presents to ER via EMS with complaints of Fall Injury. jr8 13:24 Details of fall: The patient fell from an upright position, while standing. Onset: The jr8 symptoms/episode began/occurred acutely, today. Associated injuries: The patient sustained injury to the head. Severity of symptoms: At their worst the symptoms were mild. It is unknown whether or not the patient has had similar symptoms in the past. The patient has not recently seen a physician. Patient stated that he was getting out of wheelchair. Twisted and tripped hitting head on side of trash can. Denies LOC. Currently without pain per patient. Patient noted to have slurred speech. Stated that it has been going on for a while . Historical: - Allergies: 12:52 No Known Allergies; ph - Home Meds: 12:52 acetaminophen 325 mg Oral tab 1 tab [Active]; Aricept 10 mg oral tab 1 tab nightly ph [Active]; aripiprazole 15 mg oral tab 1 tab once daily [Active]; aspirin 81 mg Oral chew 1 tab once daily [Active]; atorvastatin 40 mg oral tab 1 tab once daily [Active]; benztropine 0.5 mg Oral tab 1 tab once daily [Active]; buspirone 5 mg Oral tab 0.5 tab nightly [Active]; buspirone 5 mg Oral tab 1 tab daily [Active]; citalopram 20 mg oral tab 1 tab nightly [Active]; divalproex 125 mg oral cpSP 3 caps 3 times per day [Active]; docusate sodium 100 mg oral tab 1 tab once daily [Active]; fenofibrate 134 mg Oral once daily [Active]; lisinopril 40 mg oral tab 1 tab once daily [Active]; melatonin 10 mg oral cap daily [Active]; memantine 10 mg oral tab 1 tab 2 times per day [Active]; metoprolol tartrate 25 mg Oral tab 1 tab 2 times per day [Active]; Natural Tears (PF) ophthalmic [Active]; Neurontin 100 mg oral cap 3 times per day [Active]; Norvasc 10 mg oral tab 1 tab once daily [Active]; oxybutynin chloride 5 mg oral tab 1 tab 2 times per day [Active]; Pepcid 20 mg oral tab 1 tab nightly [Active]; senna 8.6 mg oral tab 2 tabs once daily [Active]; Seroquel 25 mg Oral tab 1 tab 2 times per day [Active]; Vitamin D Oral [Active]; hydrochlorothiazide 12.5 mg Oral tab 1 tab once daily [Active]; - PMHx: 12:52 CVA; Dementia; Depression; Diabetes - IDDM; GERD; HLD; Hypertension; Schizophrenia; ph - Immunization history:: Adult Immunizations unknown. - Social history:: Smoking status: Patient denies any tobacco usage or history of. - Immunization history: Last tetanus immunization: unknown. ROS: 13:24 Eyes: Negative for injury, pain, redness, and discharge, ENT: Negative for injury, jr8 pain, and discharge, Neck: Negative for injury, pain, and swelling, Cardiovascular: Negative for chest pain, palpitations, and edema, Respiratory: Negative for shortness of breath, cough, wheezing, and pleuritic chest pain, Abdomen/GI: Negative for abdominal pain, nausea, vomiting, diarrhea, and constipation, Back: Negative for injury and pain, MS/Extremity: Negative for injury and deformity, Skin: Negative for injury, rash, and discoloration, Neuro: Negative for headache, weakness, numbness, tingling, and seizure. Exam: 13:24 Head/Face: Normocephalic, atraumatic. Eyes: Pupils equal round and reactive to light, jr8 extra-ocular motions intact. Lids and lashes normal. Conjunctiva and sclera are non-icteric and not injected. Cornea within normal limits. Periorbital areas with no swelling, redness, or edema. ENT: Nares patent. No nasal discharge, no septal abnormalities noted. Tympanic membranes are normal and external auditory canals are clear. Oropharynx with no redness, swelling, or masses, exudates, or evidence of obstruction, uvula midline. Mucous membranes moist. Neck: Trachea midline, no thyromegaly or masses palpated, and no cervical lymphadenopathy. Supple, full range of motion without nuchal rigidity, or vertebral point tenderness. No Meningismus. Cardiovascular: Regular rate and rhythm with a normal S1 and S2. No gallops, murmurs, or rubs. Normal PMI, no JVD. No pulse deficits. Respiratory: Lungs have equal breath sounds bilaterally, clear to auscultation and percussion. No rales, rhonchi or wheezes noted. No increased work of breathing, no retractions or nasal flaring. Abdomen/GI: Soft, non-tender, with normal bowel sounds. No distension or tympany. No guarding or rebound. No evidence of tenderness throughout. Back: No spinal tenderness. No costovertebral tenderness. Full range of motion. Skin: Warm, dry with normal turgor. Normal color with no rashes, no lesions, and no evidence of cellulitis. MS/ Extremity: Pulses equal, no cyanosis. Neurovascular intact. Full, normal range of motion. 13:24 Neuro: Orientation: to person, place \T\ time. Mentation: is normal, Memory: is normal, Cranial nerves: CN I not tested, CN II- XII are normal as tested, extraocular movements are intact, Facial palsy and sensory deficits are absent. Speech is slurred, Tongue strength is normal, Cerebellar function: normal finger to nose testing, heel to levy testing is normal, Motor: moves all fours, strength is 5/5 in all extremities, Sensation: no obvious gross deficits, seizure activity, is not displayed by the patient, Abnormal movements: there are no abnormal movements. Vital Signs: 12:35 BP 127 / 57; Pulse 51; Resp 18; Temp 98.3; Pulse Ox 98% on R/A; Weight 99.79 kg; Height ph 6 ft. 0 in. (182.88 cm); Pain 0/10; 13:35 BP 106 / 50; Pulse 51; Resp 18; Pulse Ox 95% on R/A; ph 14:47 BP 117 / 47; Pulse 48; Resp 18; Temp 97.8; Pulse Ox 95% on R/A; ph 16:00 BP 108 / 52; Pulse 51; Resp 18; Temp 97.6; Pulse Ox 99% on R/A; ph 12:35 Body Mass Index 29.84 (99.79 kg, 182.88 cm) ph [place] Coma Score: 12:35 Eye Response: spontaneous(4). Verbal Response: oriented(5). Motor Response: obeys ph commands(6). Total: 15. 14:47 Eye Response: spontaneous(4). Verbal Response: oriented(5). Motor Response: obeys ph commands(6). Total: 15. 16:00 Eye Response: spontaneous(4). Verbal Response: oriented(5). Motor Response: obeys ph commands(6). Total: 15. Trauma Score (Adult): 12:35 Eye Response: spontaneous(1); Verbal Response: oriented(1); Motor Response: obeys ph commands(2); Systolic BP: > 89 mm Hg(4); Respiratory Rate: 10 to 29 per min(4); [place] Score: 15; Trauma Score: 12 13:35 Eye Response: spontaneous(1); Verbal Response: oriented(1); Motor Response: obeys ph commands(2); Systolic BP: > 89 mm Hg(4); Respiratory Rate: 10 to 29 per min(4); Seven Score: 15; Trauma Score: 12 14:47 Eye Response: spontaneous(1); Verbal Response: oriented(1); Motor Response: obeys ph commands(2); Systolic BP: > 89 mm Hg(4); Respiratory Rate: 10 to 29 per min(4); [place] Score: 15; Trauma Score: 12 16:00 Eye Response: spontaneous(1); Verbal Response: oriented(1); Motor Response: obeys ph commands(2); Systolic BP: > 89 mm Hg(4); Respiratory Rate: 10 to 29 per min(4); Seven Score: 15; Trauma Score: 12 MDM: 12:44 Patient medically screened. [facility] 13:52 Data reviewed: vital signs, nurses notes, lab test result(s), radiologic studies, CT jr8 scan. Data interpreted: Pulse oximetry: on room air is 98 %. Interpretation: normal. Counseling: I had a detailed discussion with the patient and/or guardian regarding: the historical points, exam findings, and any diagnostic results supporting the discharge/admit diagnosis, lab results, radiology results, the need for outpatient follow up, a family practitioner, a neurologist, to return to the emergency department if symptoms worsen or persist or if there are any questions or concerns that arise at home. ED course: No intracranial trauma note on head CT. Patient remains alert and in no acute distress. No other abnormal lab findings present. Needs to f/u with neurology for slurred speech but noting evident seen to be causing it at this time based on imaging and labs performed today . 07/23 12:53 Order name: CBC with Diff; Complete Time: 13:36 [facility] 07/23 12:53 Order name: Basic Metabolic Panel; Complete Time: 13:52 [facility] 07/23 12:53 Order name: CT Head Brain wo Cont; Complete Time: 13:29 07/23 12:53 Order name: LFT's; Complete Time: 13:52 8 07/23 12:53 Order name: Magnesium; Complete Time: 13:52 [facility] 07/23 13:16 Order name: Depakote; Complete Time: 13:46 ph 07/23 12:53 Order name: IV; Complete Time: 13:31 Administered Medications: 13:21 Drug: NS 0.9% 1000 ml Route: IV; Rate: 1000 ml; Site: right antecubital; ph 15:30 Follow up: Response: No adverse reaction; IV Status: Completed infusion; IV Intake: ph 1000ml Disposition: 07/24/19 13:54 Discharged to Home. Impression: Superficial injury of head. - Condition is Stable. - Discharge Instructions: Head Injury, Adult. - Medication Reconciliation Form, Thank You Letter, Antibiotic Education, Prescription Opioid Use, SBAR form form. - Follow up: Private Physician; When: 2 - 3 days; Reason: Recheck today's complaints, Continuance of care, Re-evaluation by your physician. - Problem is new. - Symptoms have improved. Addendum: 07/25/2019 18:40 Co-signature as Attending Physician, Juan Canada MD I agree with the assessment and c white plan of care. Signatures: Dispatcher [employer] Juan Parker MD MD cha Roszak, Josh, PA PA jr8 Gabriela Auguste RN RN ph Corrections: (The following items were deleted from the chart) 07/23 16:06 13:54 07/24/2019 13:54 Discharged to Home. Impression: Superficial injury of head. ph Condition is Stable. Forms are Medication Reconciliation Form, Thank You Letter, Antibiotic Education, Prescription Opioid Use. Follow up: Private Physician; When: 2 - 3 days; Reason: Recheck today's complaints, Continuance of care, Re-evaluation by your physician. Problem is new. Symptoms have improved. jr8
--- NOTE | 2019-07-24 13:55 | ER ---
Nurse's Notes [facility] Name: Nafisa Paulson Age: 68 yrs Sex: Male : 1950 Arrival Date: 07/24/2019 Time: 12:35 Bed 2 Private MD: Diagnosis: Superficial injury of head Presentation: 07/23 12:35 Chief complaint: EMS states: Pt from [facility], had unwitnessed ph fall,staff reports that he hit his head on a trash can, found by EMS lying on the ground w/ a pillow under his head, pt has no complaints r/t fall, states that he remembers falling after tripping while attempting to get into wheelchair, denies LOC, does take ASA, VSS, BGL 95. Coronavirus screen: Patient denies a cough. Patient denies shortness of breath or difficulty breathing. Patient denies measured and/or subjective temperature greater than 100.4F prior to today's visit. Patient denies travel on a cruise ship or to a country the [facility] currently lists as an affected area. Patient denies contact with known and/or suspected case of COVID-19. Ebola Screen: No symptoms or risks identified at this time. Initial Sepsis Screen: Does the patient meet any 2 criteria? No. Patient's initial sepsis screen is negative. Does the patient have a suspected source of infection? No. Patient's initial sepsis screen is negative. Risk Assessment: Do you want to hurt yourself or someone else? Patient reports no desire to harm self or others. 12:35 Method Of Arrival: EMS: [facility] 12:35 Acuity: JAVIER 3 ph 12:35 Care prior to arrival: None. Mechanism of Injury: Fall from standing position. Trauma ph event details: Injury occurred in the [facility], Injury occurred: [facility] Injury occurred: July 24, 2019. Trauma Activation: Not Applicable Physician: ED Physician; Name: ; Notified At: ; Arrived At: Physician: General Surgeon; Name: ; Notified At: ; Arrived At: Physician: Radiology; Name: ; Notified At: ; Arrived At: Physician: Respiratory; Name: ; Notified At: ; Arrived At: Physician: Lab; Name: ; Notified At: ; Arrived At: Historical: - Allergies: 12:52 No Known Allergies; ph - Home Meds: 12:52 acetaminophen 325 mg Oral tab 1 tab [Active]; Aricept 10 mg oral tab 1 tab nightly ph [Active]; aripiprazole 15 mg oral tab 1 tab once daily [Active]; aspirin 81 mg Oral chew 1 tab once daily [Active]; atorvastatin 40 mg oral tab 1 tab once daily [Active]; benztropine 0.5 mg Oral tab 1 tab once daily [Active]; buspirone 5 mg Oral tab 0.5 tab nightly [Active]; buspirone 5 mg Oral tab 1 tab daily [Active]; citalopram 20 mg oral tab 1 tab nightly [Active]; divalproex 125 mg oral cpSP 3 caps 3 times per day [Active]; docusate sodium 100 mg oral tab 1 tab once daily [Active]; fenofibrate 134 mg Oral once daily [Active]; lisinopril 40 mg oral tab 1 tab once daily [Active]; melatonin 10 mg oral cap daily [Active]; memantine 10 mg oral tab 1 tab 2 times per day [Active]; metoprolol tartrate 25 mg Oral tab 1 tab 2 times per day [Active]; Natural Tears (PF) ophthalmic [Active]; Neurontin 100 mg oral cap 3 times per day [Active]; Norvasc 10 mg oral tab 1 tab once daily [Active]; oxybutynin chloride 5 mg oral tab 1 tab 2 times per day [Active]; Pepcid 20 mg oral tab 1 tab nightly [Active]; senna 8.6 mg oral tab 2 tabs once daily [Active]; Seroquel 25 mg Oral tab 1 tab 2 times per day [Active]; Vitamin D Oral [Active]; hydrochlorothiazide 12.5 mg Oral tab 1 tab once daily [Active]; - PMHx: 12:52 CVA; Dementia; Depression; Diabetes - IDDM; GERD; HLD; Hypertension; Schizophrenia; ph - Immunization history:: Adult Immunizations unknown. - Social history:: Smoking status: Patient denies any tobacco usage or history of. - Immunization history: Last tetanus immunization: unknown. Screenin:40 Abuse screen: Denies threats or abuse. Denies injuries from another. Nutritional ph screening: No deficits noted. Tuberculosis screening: No symptoms or risk factors identified. Fall Risk Fall in past 12 months (25 points). Secondary diagnosis (15 points) impaired mobility, CVA, No IV (0 pts). Ambulatory Aid- None/Bed Rest/Nurse Assist (0 pts). Gait- Impaired (20 pts.). Mental Status- Oriented to own ability (0 pts). Total Esqueda Fall Scale indicates High Risk Score (45 or more points). Fall prevention measures have been instituted. Side Rails Up X 2 Placed Close to Nursing Station Frequent Obs/Assessments Occuring As available patient and family educated on Fall Prevention Program and Strategies. Primary Survey: 12:45 NO uncontrolled hemorrhage observed. A: The patient is alert. Airway: patent, No ph supplemental oxygen in use on arrival. Oral cavity: clear, Trachea midline. Breathing/Chest: Respiratory pattern: regular, Respiratory effort: spontaneous, unlabored, Breath sounds: clear, bilaterally. Chest inspection: symmetrical rise and fall of the chest. Circulation: Skin color: pink, Skin temperature: warm, dry. Disability Alert. Exposure/Environment: There is no evidence of uncontrolled external bleeding. No obvious injuries are noted at this time. 15:13 Reassessment Airway Airway Patent Breathing/Chest Respiratory pattern Regular ph Respiratory effort Spontaneous Unlabored Chest inspection Symmetrical Circulation Color [place] Temperature Warm Dry Disability Alert. Assessment: 15:10 Reassessment: Patient appears in no apparent distress at this time. Patient and/or ph family updated on plan of care and expected duration. Pain level reassessed. Pt asleep w/ equal and unlabored respirations, report called to CLARISSE Mejia at [facility] who stated that he would contact his director to arrange transportation back to facility. Vital Signs: 12:35 BP 127 / 57; Pulse 51; Resp 18; Temp 98.3; Pulse Ox 98% on R/A; Weight 99.79 kg; Height ph 6 ft. 0 in. (182.88 cm); Pain 0/10; 13:35 BP 106 / 50; Pulse 51; Resp 18; Pulse Ox 95% on R/A; ph 14:47 BP 117 / 47; Pulse 48; Resp 18; Temp 97.8; Pulse Ox 95% on R/A; ph 16:00 BP 108 / 52; Pulse 51; Resp 18; Temp 97.6; Pulse Ox 99% on R/A; ph 12:35 Body Mass Index 29.84 (99.79 kg, 182.88 cm) ph Granite Coma Score: 12:35 Eye Response: spontaneous(4). Verbal Response: oriented(5). Motor Response: obeys ph commands(6). Total: 15. 14:47 Eye Response: spontaneous(4). Verbal Response: oriented(5). Motor Response: obeys ph commands(6). Total: 15. 16:00 Eye Response: spontaneous(4). Verbal Response: oriented(5). Motor Response: obeys ph commands(6). Total: 15. Trauma Score (Adult): 12:35 Eye Response: spontaneous(1); Verbal Response: oriented(1); Motor Response: obeys ph commands(2); Systolic BP: > 89 mm Hg(4); Respiratory Rate: 10 to 29 per min(4); Seven Score: 15; Trauma Score: 12 13:35 Eye Response: spontaneous(1); Verbal Response: oriented(1); Motor Response: obeys ph commands(2); Systolic BP: > 89 mm Hg(4); Respiratory Rate: 10 to 29 per min(4); Granite Score: 15; Trauma Score: 12 14:47 Eye Response: spontaneous(1); Verbal Response: oriented(1); Motor Response: obeys ph commands(2); Systolic BP: > 89 mm Hg(4); Respiratory Rate: 10 to 29 per min(4); Granite Score: 15; Trauma Score: 12 16:00 Eye Response: spontaneous(1); Verbal Response: oriented(1); Motor Response: obeys ph commands(2); Systolic BP: > 89 mm Hg(4); Respiratory Rate: 10 to 29 per min(4); Granite Score: 15; Trauma Score: 12 ED Course: 12:35 Patient arrived in ED. ph 12:40 Triage completed. ph 12:40 Pancho Yuan PA is PHCP. jr8 12:40 Juan Canada MD is Attending Physician. jr8 13:03 CT Head Brain wo Cont In Process Unspecified. EDMS 13:07 Gabriela Auguste, CLARISSE is Primary Nurse. ph 13:15 Initial lab(s) drawn, by me. Inserted saline lock: 20 gauge in right antecubital area, ph using aseptic technique. Blood collected. 14:00 Patient has correct armband on for positive identification. Bed in low position. Call ph light in reach. Side rails up X2. Pulse ox on. NIBP on. Door closed. Noise minimized. Warm blanket given. 15:15 Arm band placed on. ph 15:16 No provider procedures requiring assistance completed. ph 15:17 Patient maintains SpO2 saturation greater than 95% on room air. Thermoregulation: warm ph blanket given to patient. 16:00 IV discontinued, intact, bleeding controlled, No redness/swelling at site. Pressure ph dressing applied. Administered Medications: 13:21 Drug: NS 0.9% 1000 ml Route: IV; Rate: 1000 ml; Site: right antecubital; ph 15:30 Follow up: Response: No adverse reaction; IV Status: Completed infusion; IV Intake: ph 1000ml Intake: 14:47 IV: 1000ml (IV Fluid); Total: 1000ml. ph 15:30 IV: 1000ml; Total: 2000ml. ph Outcome: 13:54 Discharge ordered by MD. grossman 16:06 Patient left the ED. ph 16:06 Discharged to senior living. Report called to Zina cabrera 16:06 Condition: good 16:06 Discharge instructions given to senior living, Instructed on discharge instructions, follow up and referral plans. Demonstrated understanding of instructions, follow-up care. 16:06 Patient's length of stay was not longer than 2 hours. ph Signatures: Dispatcher [employer] EDPancho Heart PA PA jr8 Hall, Patricia, RN RN ph
[2019-07-24 16:12] VITALS: O2SAT 95
[2019-07-24 16:13] VITALS: BP 117/47; TEMP 97.8
== END 2019-07-24 16:06 | disposition home or self-care (01) ==
LOC: ER 12:36
DX: S00.90XA Unspecified superficial injury of unspecified part of head, initial encounter (principal); W05.0XXA Fall from non-moving wheelchair, initial encounter; Y93.9 Activity, unspecified; Y92.129 Unspecified place in nursing home as the place of occurrence of the external cause; E11.9 Type 2 diabetes mellitus without complications; I10 Essential (primary) hypertension; F32.9 Major depressive disorder, single episode, unspecified; Z86.73 Personal history of transient ischemic attack (TIA), and cerebral infarction without residual deficits; K21.9 Gastro-esophageal reflux disease without esophagitis
CPT/HCPCS: 96361; 85025; 80048; 36415; 83735; 80076; 80164; 70450; 96360; 99284; J7030

== ENCOUNTER 2019-09-08 19:10 | Inpatient (IN) | payer OTHER ==
--- OUTSIDE RECORDS SUMMARY | 2019-09-08 19:13 | XMS REPORT | Continuity of Care Document ---
:1950 Author Organization [facility] t Address [address] [place] [id number] Care Team Providers Name Role Phone DR [...] ID 2019-06-03 2019-06-17 Inpatient [facility] [id number] [address] [place] [address] 17:10:00 11:05:00 [facility] Results Test Description Test Time Test Comments Results Result Comments Source VALPROIC ACID (DEPAKENE) 2019-06-13 07:05:00 Test Item Value Reference Range Interpretation Comme nts VALP ACID (test code = 95A) 63.0 ug/mL 50.0-100.0 VALPROIC ACID (DEPAKENE)2019-06-09 06:51:00 Test Item Value Reference Range Interpretation Comments VALP ACID (test code = 95A) 57.5 ug/mL 50.0-100.0 AMMONIA [id number] 05:25:00 Test Item Value Reference Range Interpretation Comments AMMONIA (test code = 54A) 31 umol/L 11-32 B12 [id number] 20:14:00 Test Item Value Reference Range Interpretation Comments VIT B12 (test code = A60) 464.0 pg/mL 180.0-914.0 [id number] 20:14:00 Test Item Value Reference Range Interpretation Comments FOLATE (test code = A75) 8.1 ng/mL 3.1-17.5 THYROID PANEL/SCREEN (TSH)2019-06-03 20:04:00 Test Item Value Reference Range Interpretation Comments TSH (test code = A57) 0.541 uIU/mL 0.358-3.740 [id number] 20:03:00 Test Item Value Reference Range Interpretation Comments PREALBUMIN (test code = 08E) 18 mg/dL 18-38 LIPID [id number] 20:03:00 Test Item Value Reference Range Interpretation [...] (test code = 95A) 65.0 ug/mL 50.0-100.0 [id number] 19:45:00 Test Item Value Reference Range Interpretation Comments MAGNESIUM (test code = 48A) 1.8 mg/dL 1.8-2.4 [id number] 19:44:00 Test Item Value Reference Range Interpretation Comments Hb A1C % (test code = HBA) 5.2 % 4.2-6.3 [id number] 16:30:00 Test Item Value Reference Range Interpretation Comments ACETAMINPH (test code = 94M) <10.0 ug/mL 10.0-30.0 [id number] 16:23:00 Test Item Value Reference Range Interpretation Comments SALICYLATE (test code = 94B) <1.7 mg/dL 2.8-20.0 L ALCOHOL BLOOD (ETOH)2019-06-03 16:23:00 Test Item Value Reference Range Interpretation Comments ETOH (test code = HALC) ETHANOL The result is to be used only for medical purposes ALCOHOL (test code = <10 mg/dL <=10 56A) COMPREHENSIVE METABOLIC [id number] 16:22:00 Test Item Value Reference Range Interpretation [...] code = 31A) 37 IU/L <=78 CARDIAC [id number] 16:15:00 Test Item Value Reference Range Interpretation Comments TROPONIN I (test code = A84) <0.015 ng/mL 0.000-0.045 AMMONIA [id number] 16:08:00 Test Item Value Reference Range Interpretation [...] code = MDIFF) NO NO URINALYSIS WITH [id number] 15:15:00 Test Item Value Reference Range Interpretation [...] code = USPERM) /HPF NONE DRUGS OF [id number] 15:15:00 Test Item Value Reference Range Interpretation [...]
[2019-09-08 19:44] LABS: Absolute Lymphocytes (CBC) 0.9 K/uL (0.7-4.9); Basophils % 0.3 % (0-1.3); Hematocrit 35.6 % (39.6-49.0); Lymphocytes % 12.5 % (15.3-44.8); MPV 7.6 fL (7.6-11.3); RBC Red Blood Cell Count 4.16 M/uL (4.33-5.43)
[2019-09-08 19:53] LABS: Protime INR 1.05
[2019-09-08 20:02] LABS: ALT/SGPT 37 U/L (12-78); AST/SGOT 36 U/L (15-37); Albumin 3.1 g/dL (3.4-5.0); Alkaline Phosphatase 69 U/L (45-117); BUN Blood Urea Nitrogen 21 mg/dL (7-18); Bicarbonate 24 mmol/L (21-32); Bilirubin Direct 0.2 mg/dL (0-0.2); Bilirubin Total 0.5 mg/dL (0.2-1.0); CKMB Creatine Kinase MB 1.1 ng/mL (0.3-3.6); Creatine Phosphokinase 56 U/L (39-308); Glucose Level 112 mg/dL (74-106); Lipase 107 U/L (73-393); Magnesium 2.2 mg/dL (1.8-2.4); Potassium 4.1 mmol/L (3.5-5.1); Protein, Total 6.5 g/dL (6.4-8.2); Sodium Level 133 mmol/L (136-145); Troponin (Emerg Dept Use Only) < 0.02 ng/mL (0.0-0.045)
--- NOTE | 2019-09-08 20:30 | RAD REPORT ---
EXAM DESCRIPTION: CT - Head Brain Wo Cont - 09/08/2019 8:17 pm CLINICAL HISTORY: Alteration of awareness/confusion COMPARISON: 2016 TECHNIQUE: Computed axial tomography of the head was obtained. IV contrast was not requested. All CT scans are performed using dose optimization technique as appropriate and may include automated exposure control or mA/KV adjustment according to patient size. FINDINGS: An intracranial bleed is not seen . Dilatation of the ventricles is stable. No extra-axial fluid collection is noted. A small low-density area within the left frontal lobe is unchanged perhaps an old infarction. Fluid within the sinuses/ mastoids is not seen. IMPRESSION: Mild dilatation of the ventricles unchanged from 2016 No acute intracranial abnormality noted. If patient's symptoms persist MRI of the brain would be recommended.
[2019-09-08 21:18] LABS: Urine Blood NEGATIVE (NEG); Urine Glucose NEGATIVE (NEG); Urine Protein NEGATIVE (NEG); Urine Specific Gravity 1.025 (1.005-1.030); Urine pH 5.5 (5.0-7.0)
--- NOTE | 2019-09-08 21:31 | ER ---
Nurse's Notes [facility] Name: Nafisa Paulson Age: 68 yrs Sex: Male : 1950 Arrival Date: 09/08/2019 Time: 19:11 Bed 6 Private MD: Diagnosis: Altered mental status, unspecified Presentation: 09/07 19:15 Chief complaint: EMS states: FROM [facility]. PER STAFF, PT IS MORE ls4 CONFUSED THAN USUAL. HE WAS FOUND NAKED IN ANOTHER PATIENTS ROOM. LAST TIME HE WAS HERE HE HAD LOW SODIUM AND THAT CAUSED MORE CONFUSION. Coronavirus screen: Patient denies a cough. Patient denies shortness of breath or difficulty breathing. Patient denies measured and/or subjective temperature greater than 100.4F prior to today's visit. Patient denies travel on a cruise ship or to a country the [facility] currently lists as an affected area. Patient denies contact with known and/or suspected case of COVID-19. Ebola Screen: No symptoms or risks identified at this time. Initial Sepsis Screen: Does the patient meet any 2 criteria? No. Patient's initial sepsis screen is negative. Does the patient have a suspected source of infection? No. Patient's initial sepsis screen is negative. Risk Assessment: Do you want to hurt yourself or someone else? Patient reports no desire to harm self or others. Onset of symptoms was September 08, 2019. 19:15 Method Of Arrival: EMS: [facility] ls4 19:15 Acuity: JAVIER 2 ls4 Historical: - Allergies: 19:43 No Known Allergies; jd3 - PMHx: 19:27 GERD; CVA; Dementia; Schizophrenia; Depression; Hypertension; Diabetes - IDDM; HLD; jd3 - PSHx: 19:43 Unable to obtain; jd3 - Immunization history:: Adult Immunizations unknown. - Social history:: Smoking status: unknown. Screenin:30 Abuse screen: Denies threats or abuse. Nutritional screening: No deficits noted. jd3 Tuberculosis screening: No symptoms or risk factors identified. Fall Risk Secondary diagnosis (15 points) dementia, Mental Status- Overestimates/Forgets Limitations (15 pts.). Total Esqueda Fall Scale indicates Low Risk Score (25-44 pts). Fall prevention measures have been instituted. Side Rails Up X 2 Placed close to Nursing Station Frequent Obs/Assesments occuring. Assessment: 19:27 General: Appears in no apparent distress. comfortable, Behavior is calm, cooperative, jd3 drowsy, pt asleep in bed, will respond to voice, but falls asleep again.. Pain: Denies pain. Neuro: Level of Consciousness is awake, confused, Oriented to none. Cardiovascular: Heart tones present Capillary refill < 3 seconds Patient's skin is warm and dry. Rhythm is regular. Respiratory: Airway is patent Respiratory effort is even, unlabored, Respiratory pattern is regular, symmetrical, Breath sounds are clear bilaterally. Denies cough, shortness of breath. GI: No signs and/or symptoms were reported involving the gastrointestinal system. : No signs and/or symptoms were reported regarding the genitourinary system. EENT: No signs and/or symptoms were reported regarding the EENT system. Derm: Skin is intact, Skin is dry, Skin is normal, Skin temperature is warm. Musculoskeletal: No signs and/or symptoms reported regarding the musculoskeletal system. 20:39 Reassessment: Patient appears in no apparent distress at this time. No changes from jd3 previously documented assessment. Patient and/or family updated on plan of care and expected duration. Pain level reassessed. 21:56 Reassessment: Patient appears in no apparent distress at this time. No changes from jd3 previously documented assessment. Patient and/or family updated on plan of care and expected duration. Pain level reassessed. 09/08 00:00 Reassessment: Patient appears in no apparent distress at this time. Patient and/or jd3 family updated on plan of care and expected duration. Pain level reassessed. pt is awake and following commands. pt is confused and only oriented to self Patient denies pain at this time. Vital Signs: 09/07 19:15 BP 122 / 66; Pulse 61; Resp 19; Temp 98.3(A); Pulse Ox 90% on R/A; Pain 0/10; ls4 20:40 BP 135 / 62; Pulse 69; Resp 19; Pulse Ox 96% ; jd3 21:56 BP 138 / 69; Pulse 68; Resp 17 S; Pulse Ox 99% on 2 lpm NC; jd3 09/08 00:00 BP 133 / 67; Pulse 62; Resp 17 S; Pulse Ox 99% on R/A; jd3 ED Course: 09/07 19:11 Patient arrived in ED. ds1 19:17 Dusty White, RN is Primary Nurse. jd3 19:17 Mekhi Fernando MD is Attending Physician. tw4 19:19 Triage completed. ls4 19:26 Arm band placed on. EKG completed in triage. Results shown to MD. jd3 19:30 Patient has correct armband on for positive identification. Bed in low position. Call jd3 light in reach. Side rails up X 1. alarm security or surveillance monitor on. Pulse ox on. NIBP on. 19:40 Troponin (emerg Dept Use Only) Sent. ds4 19:40 Ptt, Activated Sent. ds4 19:41 Protime (+inr) Sent. ds4 19:41 Magnesium Sent. ds4 19:41 Lipase Sent. ds4 19:41 EKG done, by ED staff, reviewed by Mekhi Fernando MD. ds4 20:17 CT Head Brain wo Cont In Process Unspecified. EDMS 21:09 Straight cath inserted, using sterile technique, 16 Fr. Specimen obtained. Returned jd3 ethel urine. Patient tolerated well. 21:30 Dario Melgar is Hospitalizing Provider. tw4 23:59 No provider procedures requiring assistance completed. Patient admitted, IV remains in jd3 place. Administered Medications: 21:35 Drug: Rocephin - (cefTRIAXone) 1 grams Route: IVPB; Infused Over: 30 mins; Site: right mg2 antecubital; 22:30 Follow up: Response: No adverse reaction; IV Status: Completed infusion jd3 Outcome: 21:30 Decision to Hospitalize by Provider. tw4 23:59 Admitted to Med/surg accompanied by tech, via stretcher, room 205, with chart, Report jd3 called to Jacinta ROBB 23:59 Condition: stable 23:59 Instructed on the need for admit. 09/08 00:28 Patient left the ED. j Signatures: Dispatcher [employer] EDME Rachel Fontenot ds1 Mata Burrows ds4 Dusty White, Mekhi Marsh RN, MD MD tw4 Teodoro Goncalves RN RN mg2 Kath Polo RN RN ls4
--- NOTE | 2019-09-08 21:31 | EDPHYS ---
Physician Documentation [facility] Name: Nafisa Self Age: 68 yrs Sex: Male : 1950 Arrival Date: 09/08/2019 Time: 19:11 Bed 6 Private MD: ED Physician Mekhi Fernando HPI: 09/07 19:41 This 68 yrs old Male presents to ER via EMS with complaints of Altered Mental tw4 Status. 19:41 The patient presents with decreased mental status, decreased responsiveness. Onset: The tw4 symptoms/episode began/occurred today. Associated signs and symptoms: The patient has no apparent associated signs or symptoms. Unable to obtain HPI due to altered mental status. The patient has not experienced similar symptoms in the past. 19:41 Possible causes: unknown. Patient's baseline: Neuro: alert but confused, Motor: no tw4 deficits, Ambulation: walks with assist only, uses walker, Speech:. Historical: - Allergies: 19:43 No Known Allergies; jd3 - PMHx: 19:27 GERD; CVA; Dementia; Schizophrenia; Depression; Hypertension; Diabetes - IDDM; HLD; jd3 - PSHx: 19:43 Unable to obtain; jd3 - Immunization history:: Adult Immunizations unknown. - Social history:: Smoking status: unknown. ROS: 19:41 Constitutional: Negative for fever, chills, and weight loss, Eyes: Negative for injury, tw4 pain, redness, and discharge, ENT: Negative for injury, pain, and discharge, Cardiovascular: Negative for chest pain, palpitations, and edema, Respiratory: Negative for shortness of breath, cough, wheezing, and pleuritic chest pain, Abdomen/GI: Negative for abdominal pain, nausea, vomiting, diarrhea, and constipation, Back: Negative for injury and pain, MS/Extremity: Negative for injury and deformity, Skin: Negative for injury, rash, and discoloration. 19:41 Neuro: Positive for altered mental status, Negative for dizziness, gait disturbance, headache, tinnitus, tremor, visual changes, weakness. Exam: 19:41 Constitutional: This is a well developed, well nourished patient who is awake, alert, tw4 and in no acute distress. Head/Face: Normocephalic, atraumatic. Chest/axilla: Normal chest wall appearance and motion. Nontender with no deformity. No lesions are appreciated. Cardiovascular: Regular rate and rhythm with a normal S1 and S2. No gallops, murmurs, or rubs. Normal PMI, no JVD. No pulse deficits. Respiratory: Lungs have equal breath sounds bilaterally, clear to auscultation and percussion. No rales, rhonchi or wheezes noted. No increased work of breathing, no retractions or nasal flaring. Abdomen/GI: Soft, non-tender, with normal bowel sounds. No distension or tympany. No guarding or rebound. No evidence of tenderness throughout. Back: No spinal tenderness. No costovertebral tenderness. Full range of motion. MS/ Extremity: Pulses equal, no cyanosis. Neurovascular intact. Full, normal range of motion. Neuro: Awake and alert, GCS 15, oriented to person, place, time, and situation. Cranial nerves II-XII grossly intact. Motor strength 5/5 in all extremities. Sensory grossly intact. Cerebellar exam normal. Normal gait. Vital Signs: 19:15 BP 122 / 66; Pulse 61; Resp 19; Temp 98.3(A); Pulse Ox 90% on R/A; Pain 0/10; ls4 20:40 BP 135 / 62; Pulse 69; Resp 19; Pulse Ox 96% ; jd3 21:56 BP 138 / 69; Pulse 68; Resp 17 S; Pulse Ox 99% on 2 lpm NC; jd3 09/08 00:00 BP 133 / 67; Pulse 62; Resp 17 S; Pulse Ox 99% on R/A; jd3 MDM: 09/07 19:18 Patient medically screened. tw4 09/08 00:05 Differential Diagnosis: CVA, hypoglycemia, intracranial bleed, volume depletion. Data tw4 reviewed: vital signs, nurses notes. Data interpreted: Pulse oximetry: Interpretation: normal. Counseling: I had a detailed discussion with the patient and/or guardian regarding: the historical points, exam findings, and any diagnostic results supporting the discharge/admit diagnosis. Special discussion: I discussed with the patient/guardian in detail that at this point there is no indication for admission to the hospital. It is understood, however, that if the symptoms persist or worsen the patient needs to return immediately for re-evaluation. 09/07 19:19 Order name: Basic Metabolic Panel; Complete Time: 20:12 tw4 09/07 20:13 Interpretation: Normal except: NA 133; GLUC 112; BUN 21; GFR 66. 09/07 19:19 Order name: CBC with Diff; Complete Time: 20:12 09/07 20:13 Interpretation: Normal except: RBC 4.16; HGB 12.0; HCT 35.6; PLT 143; RDW 16.0; NIKOLAI% tw4 78.0. 09/07 19:19 Order name: Ckmb; Complete Time: 20:12 09/07 19:19 Order name: CPK; Complete Time: 20:12 09/07 19:19 Order name: Hepatic Function; Complete Time: 20:12 09/07 19:19 Order name: Lipase; Complete Time: 20:12 09/07 19:19 Order name: CT Head Brain wo Cont; Complete Time: 20:43 09/07 19:19 Order name: Magnesium; Complete Time: 20:12 09/07 19:19 Order name: Protime (+inr); Complete Time: 20:12 09/07 19:19 Order name: Ptt, Activated; Complete Time: 20:12 09/07 19:19 Order name: Troponin (emerg Dept Use Only); Complete Time: 20:12 09/07 19:19 Order name: EKG; Complete Time: 19:20 09/07 21:09 Order name: Urine Dipstick--Ancillary (enter results); Complete Time: 21:29 09/07 21:29 Interpretation: Normal except: U NIT POSITIVE; UESTR 1+. 09/07 19:19 Order name: Cardiac monitoring; Complete Time: 19:32 09/07 19:19 Order name: EKG - Nurse/Tech; Complete Time: 19:32 09/07 19:19 Order name: IV Saline Lock; Complete Time: 19:40 09/07 19:19 Order name: Labs collected and sent; Complete Time: 19:40 09/07 19:19 Order name: NPO; Complete Time: 19:32 09/07 19:19 Order name: O2 Per Protocol; Complete Time: 19:32 09/07 19:19 Order name: O2 Sat Monitoring; Complete Time: 19:32 09/07 19:19 Order name: Urine Dipstick-Ancillary (obtain specimen); Complete Time: 21:08 [facility] 09/07 21:09 Order name: Cath; Complete Time: 21: [facility] EC:04 Rate is 59 beats/min. Rhythm is regular. QRS [place] is Normal. [place] interval is normal. QRS tw4 interval is normal. QT interval is normal. No Q waves. T waves are Flattened in leads III, aVF, V2, V3, V4, V5. No ST changes noted. Clinical impression: Sinus bradycardia. Interpreted by me. Reviewed by me. Administered Medications: 09/07 21:35 Drug: Rocephin - (cefTRIAXone) 1 grams Route: IVPB; Infused Over: 30 mins; Site: right [facility] antecubital; 22:30 Follow up: Response: No adverse reaction; IV Status: Completed infusion jd3 Disposition: 09/08/19 21:30 Hospitalization ordered by Dario Melgar for Inpatient Admission. Preliminary diagnosis is Altered mental status, unspecified. - Bed requested for Telemetry/MedSurg (Inpatient). - Status is Inpatient Admission. j - Condition is Stable. - Problem is new. - Symptoms are unchanged. Signatures: Dispatcher [employer] Amanda Neumann RN RN Dusty White RN RN jd3 Mekhi Fernando MD MD tw4 Teodoro Goncalves RN RN mg2 Gretchen Delvalle ar5 Corrections: (The following items were deleted from the chart) 20:13 20:13 Normal except: RBC 4.16; HGB 12.0; HCT 35.6; PLT 143; RDW 16.0. [facility] tw4 23:19 21:30 Hospitalization Ordered by Dario Melgar for Inpatient Admission. Preliminary cg diagnosis is Altered mental status, unspecified. Bed requested for Telemetry/MedSurg (Inpatient). Status is Inpatient Admission. Condition is Stable. Problem is new. Symptoms are unchanged. 4 23:52 23:19 09/08/2019 21:30 Hospitalization Ordered by Dario Melgar for Inpatient ar5 Admission. Preliminary diagnosis is Altered mental status, unspecified. Bed requested for Telemetry/MedSurg (Inpatient). Status is Inpatient Admission. Condition is Stable. Problem is new. Symptoms are unchanged. 09/08 00:28 09/07 23:52 09/08/2019 21:30 Hospitalization Ordered by Dario Melgar for Inpatient jd3 Admission. Preliminary diagnosis is Altered mental status, unspecified. Bed requested for Telemetry/MedSurg (Inpatient). Status is Inpatient Admission. Condition is Stable. Problem is new. Symptoms are unchanged. ar5
[2019-09-08] MEDS ORDERED: CEFTRIAXONE/SWI 1gm 1 GM/10 ML SYR ONE (21:44)
--- NOTE | 2019-09-08 22:53 | P.HP ---
Certification for Inpatient Patient admitted to: Inpatient With expected LOS: >2 Midnights Practitioner: I am a practitioner with admitting privileges, knowledge of patient current condition, hospital course, and medical plan of care. Services: Services provided to patient in accordance with Admission requirements found in Title 42 Section 412.3 of the Code of Federal Regulations Patient History Date of Service: 09/08/19 Reason for admission: Altered mental status History of Present Illness: 8-year-old intermediate resident with a history of CVA, dementia, schizophrenia was brought to the emergency department due to altered mental status. There is a report he was found naked, confused in another resident to room. There is a report patient had hyponatremia the last time he was confused. His UA in the ED suggested presence of UTI. He has mild hyponatremia. No leukocytosis and does not meet criteria for sepsis. No recorded fever. Patient was confused during my assessment in the ED and could not provide any history. He is admitted for further management. Allergies No Known Allergies Allergy (Unverified 05/21/15 20:07) - Past Medical/Surgical History -: Hypertension -: CVA -: Dementia -: Schizophrenia -: Type 2 DM - Family History Family History: Reviewed- Non-Contributory - Social History Alcohol use: No CD- Drugs: No Place of Residence: [facility] Review of Systems is unable to be obtained (Due to altered mental status) Physical Examination - Physical Exam General: In no apparent distress, Confused HEENT: Mucous membr. moist/pink, EOMI, Sclerae nonicteric Neck: Supple, JVD not distended Respiratory: Clear to auscultation bilaterally, Normal air movement Cardiovascular: No edema, Regular rate/rhythm, Normal S1 S2 Capillary refill: <2 Seconds Gastrointestinal: Normal bowel sounds, Soft and benign, Non-distended, No tenderness Musculoskeletal: No swelling, No erythema Integumentary: No rashes Neurological: Other (Nonfocal) - Studies Laboratory Data (last 24 hrs) 09/08/19 19:35: PT 12.4, INR 1.05, APTT 34.1 09/08/19 19:35: WBC 7.3, Hgb 12.0 L, Hct 35.6 L, Plt Count 143 L 09/08/19 19:35: Sodium 133 L, Potassium 4.1, BUN 21 H, Creatinine 1.11, Glucose 112 H, Magnesium 2.2, Total Bilirubin 0.5, AST 36, ALT 37, Alkaline Phosphatase 69, Lipase 107 Assessment and Plan - Problems (Diagnosis) (1) Metabolic encephalopathy Current Visit: Yes Status: Acute (2) UTI (urinary tract infection) Current Visit: Yes Status: Acute (3) Dementia with behavioral disturbance Current Visit: Yes Status: Acute (4) Type 2 diabetes mellitus Current Visit: Yes Status: Acute - Plan Admit to the medical floor. Supportive measures. IV hydration IV Rocephin Follow urine culture and blood cultures Insulin sliding scale for glucose management. IV Haldol p.r.n. for agitation. Screen for COVID 19 - Advance Directives Does patient have a Living Will: No Does patient have a Durable POA for Healthcare: No
[2019-09-08] MEDS: NA CHLORIDE 0.9% 1,000 ML IV SCH (23:58)
[2019-09-08] MEDS ORDERED: ACETAMINOPHEN 500 MG TAB PO PRN (23:58)
[2019-09-09 00:57] VITALS: BMI 25.6
[2019-09-09 01:41] LABS: Urine Appearance CLEAR; Urine Bilirubin NEGATIVE (NEG); Urine Blood 2+ (NEG); Urine Color YELLOW; Urine Glucose NEGATIVE (NEG); Urine Protein NEGATIVE (NEG)
[2019-09-09 01:46] LABS: Urine Microscopic Reflex ORDER UMIC
[2019-09-09 01:57] LABS: Urine Bacteria <20 /HPF (NONE SEEN); Urine Culture Reflex Order REFLEXED
[2019-09-09 05:52] LABS: Absolute Lymphocytes (CBC) 1.1 K/uL (0.7-4.9); Basophils % 0.4 % (0-1.3); Hematocrit 34.8 % (39.6-49.0); Lymphocytes % 18.6 % (15.3-44.8); MPV 7.8 fL (7.6-11.3); RBC Red Blood Cell Count 4.08 M/uL (4.33-5.43)
[2019-09-09 06:14] LABS: Magnesium 2.1 mg/dL (1.8-2.4); Phosphorus 3.1 mg/dL (2.5-4.9); Potassium 3.7 mmol/L (3.5-5.1); Thyroid Stimulating Hormone 1.25 uIU/mL (0.360-3.740)
[2019-09-09] MEDS: INSULIN -REGULAR HUMAN 50 UNIT/0.5 ML ML SQ SCH ×4 (07:30→20:34)
--- NOTE | 2019-09-09 07:46 | P.PN ---
Subjective Date of Service: 09/09/19 Chief Complaint: Altered mental status Patient resting comfortably. No agitation since admission. He has been afebrile. Physical Examination - Vital Signs Temperature: 96.5 F Blood Pressure: 105/49 Pulse: 45 Respirations: 18 Pulse Ox (%): 95 - Physical Exam General: In no apparent distress, Other (Awake) HEENT: Mucous membr. moist/pink Neck: Supple Respiratory: Clear to auscultation bilaterally, Normal air movement Cardiovascular: No edema, Regular rate/rhythm, Normal S1 S2 Capillary refill: <2 Seconds Gastrointestinal: Normal bowel sounds, Soft and benign, No tenderness Musculoskeletal: No swelling, No erythema Integumentary: No rashes Neurological: Other (Nonfocal) - Studies Laboratory Data (last 24 hrs) 09/08/19 19:35: PT 12.4, INR 1.05, APTT 34.1 09/08/19 19:35: WBC 7.3, Hgb 12.0 L, Hct 35.6 L, Plt Count 143 L 09/08/19 19:35: Sodium 133 L, Potassium 4.1, BUN 21 H, Creatinine 1.11, Glucose 112 H, Magnesium 2.2, Total Bilirubin 0.5, AST 36, ALT 37, Alkaline Phosphatase 69, Lipase 107 Assessment And Plan - Current Problems (Diagnosis) (1) Metabolic encephalopathy Current Visit: Yes Status: Acute (2) UTI (urinary tract infection) Current Visit: Yes Status: Acute (3) Dementia with behavioral disturbance Current Visit: Yes Status: Acute (4) Type 2 diabetes mellitus Current Visit: Yes Status: Acute - Plan Continue IV hydration Continue IV Rocephin Follow urine culture and blood cultures Insulin sliding scale for glucose management. IV Haldol p.r.n. for agitation. COVID 19 test result is pending.
[2019-09-09] MEDS ORDERED: ARIPIPRAZOLE PO SCH (09:00)
[2019-09-09] MEDS ORDERED: FLUTICASONE PROPIONATE IH SCH (09:00)
[2019-09-09] MEDS ORDERED: POTASSIUM CL SA 10 MEQ TAB PO ONE (09:00)
[2019-09-09] MEDS ORDERED: HYPROMELLOSE EACH EYE SCH (09:00)
[2019-09-09] MEDS ORDERED: HOME MED 1 EA UNK (Cholecalciferol (Vitamin D3) [Vitamin D3] 1 TAB) PO SCH (09:00)
[2019-09-09] MEDS ORDERED: HOME MED 1 EA UNK (Fenofibrate,Micronized [Fenofibrate] 134 MG) PO SCH (09:00)
[2019-09-09] MEDS ORDERED: DEXTRAN EACH EYE SCH (09:00)
[2019-09-09] MEDS ORDERED: BENZTROPINE MESYLATE PO SCH (09:00)
[2019-09-09] MEDS: OXYBUTYNIN CHLORIDE 5 MG TAB PO SCH ×2 (09:34→20:25)
[2019-09-09] MEDS: BUSPIRONE HCL 5 MG TABLET PO SCH ×2 (09:34→20:25)
[2019-09-09] MEDS: ASCORBIC ACID 500 MG TABLET PO SCH (09:34)
[2019-09-09] MEDS: QUETIAPINE 25 MG TAB PO SCH ×2 (09:35→20:23)
[2019-09-09] MEDS: MEMANTINE HCL 10 MG TABLET PO SCH ×2 (09:35→20:24)
[2019-09-09] MEDS: GABAPENTIN 100 MG CAP PO SCH ×3 (09:35→20:25)
[2019-09-09] MEDS: DOCUSATE NA 100 MG CAP PO SCH (09:35)
[2019-09-09] MEDS: ZINC SULFATE 220 MG CAP PO SCH (09:35)
[2019-09-09] MEDS: ENOXAPARIN 40 MG/0.4 ML SQ SCH (09:35)
[2019-09-09] MEDS: DIVALPROEX NA 125 MG CAP PO SCH ×3 (09:35→20:23)
[2019-09-09] MEDS: LORATADINE 10 MG TAB PO SCH (09:35)
[2019-09-09] MEDS: ASPIRIN EC 81 MG TAB PO SCH (09:35)
[2019-09-09] MEDS: MULTIVIT W/ MINERAL TAB PO SCH (09:35)
[2019-09-09] MEDS: NA CHLORIDE 0.9% 1,000 ML IV SCH ×2 (09:48→19:58)
[2019-09-09] MEDS: CEFTRIAXONE/SWI 1gm 1 GM/10 ML SYR IV SCH (20:23)
[2019-09-09] MEDS: SENOSIDES 8.6 MG TAB PO SCH (20:24)
[2019-09-09] MEDS: MELATONIN 5 MG TABLET PO SCH (20:24)
[2019-09-09] MEDS: ATORVASTATIN 40 MG TAB PO SCH (20:25)
[2019-09-09] MEDS: CITALOPRAM 10 MG TABLET PO SCH (20:25)
[2019-09-09] MEDS: DONEPEZIL HCL 5 MG TAB PO SCH (20:32)
[2019-09-09] MEDS: FAMOTIDINE 20 MG TAB PO SCH (20:33)
[2019-09-09] MEDS: FLUTICASONE 50MCG NASAL SPRAY NAS SCH (20:34)
[2019-09-09] MEDS: POLYVINYL ALCOHOL 1.4% 15 ML OPTH SCH (20:34)
[2019-09-10] MEDS: NA CHLORIDE 0.9% 1,000 ML IV SCH ×5 (02:02→22:07)
[2019-09-10 04:52] LABS: Potassium 4.1 mmol/L (3.5-5.1)
[2019-09-10] MEDS: INSULIN -REGULAR HUMAN 50 UNIT/0.5 ML ML SQ SCH ×4 (07:30→21:00)
[2019-09-10] MEDS: ZINC SULFATE 220 MG CAP PO SCH (08:42)
[2019-09-10] MEDS: DOCUSATE NA 100 MG CAP PO SCH (08:42)
[2019-09-10] MEDS: OXYBUTYNIN CHLORIDE 5 MG TAB PO SCH ×2 (08:42→22:19)
[2019-09-10] MEDS: BENZTROPINE 1 MG TAB PO SCH (08:42)
[2019-09-10] MEDS: MEMANTINE HCL 10 MG TABLET PO SCH ×2 (08:42→22:11)
[2019-09-10] MEDS: ENOXAPARIN 40 MG/0.4 ML SQ SCH (08:42)
[2019-09-10] MEDS: LORATADINE 10 MG TAB PO SCH (08:42)
[2019-09-10] MEDS: BUSPIRONE HCL 5 MG TABLET PO SCH ×2 (08:42→22:10)
[2019-09-10] MEDS: VITAMIN D 1000 UNIT TAB PO SCH (08:43)
[2019-09-10] MEDS: ASPIRIN EC 81 MG TAB PO SCH (08:43)
[2019-09-10] MEDS: DIVALPROEX NA 125 MG CAP PO SCH ×3 (08:43→22:09)
[2019-09-10] MEDS: ARIPiprazole 5 MG TAB PO SCH (08:44)
[2019-09-10] MEDS: MULTIVIT W/ MINERAL TAB PO SCH (08:44)
[2019-09-10] MEDS: GABAPENTIN 100 MG CAP PO SCH ×3 (08:44→22:11)
[2019-09-10] MEDS: QUETIAPINE 25 MG TAB PO SCH ×2 (08:44→22:22)
[2019-09-10] MEDS: ASCORBIC ACID 500 MG TABLET PO SCH (08:44)
[2019-09-10] MEDS: FENOFIBRATE 160 MG TAB PO SCH (08:44)
[2019-09-10] MEDS: POLYVINYL ALCOHOL 1.4% 15 ML OPTH SCH ×2 (08:45→21:00)
[2019-09-10] MEDS: FLUTICASONE 50MCG NASAL SPRAY NAS SCH ×2 (08:45→21:00)
--- NOTE | 2019-09-10 12:56 | P.PN ---
Subjective Date of Service: 09/10/19 Chief Complaint: Altered mental status Subjective: No new changes Review of Systems 10-point ROS is otherwise unremarkable Physical Examination - Vital Signs Temperature: 97.7 F Blood Pressure: 181/79 Pulse: 69 Respirations: 16 Pulse Ox (%): 96 - Physical Exam General: Alert, In no apparent distress HEENT: Atraumatic, Normocephalic Neck: Supple Respiratory: Clear to auscultation bilaterally Cardiovascular: Regular rate/rhythm, Normal S1 S2 Capillary refill: <2 Seconds Gastrointestinal: Soft and benign, W/out hepatosplenomegaly Musculoskeletal: No clubbing, No swelling Integumentary: No rashes Neurological: Other (Alert , Awake ) Assessment & Plan Physician Review Additional Text: (1) Metabolic encephalopathy (2) UTI (urinary tract infection) (3) Dementia with behavioral disturbance (4) Type 2 diabetes mellitus - Plan Continue IV hydration Continue IV Rocephin Follow urine culture and blood cultures Insulin sliding scale for glucose management. IV Haldol p.r.n. for agitation. COVID 19 test result is pending. 09/10/1999 More awake alert Denies any chest pain or shortness of breath Cultures negative so far continue antibiotic and IV hydration Monitor closely will get a PT eval Possible Dc in a.m. Time Spent Managing Pts Care (In Minutes): 42
[2019-09-10] MEDS: FAMOTIDINE 20 MG TAB PO SCH (21:00)
[2019-09-10] MEDS: CEFTRIAXONE/SWI 1gm 1 GM/10 ML SYR IV SCH (22:08)
[2019-09-10] MEDS: DONEPEZIL HCL 5 MG TAB PO SCH (22:09)
[2019-09-10] MEDS: MELATONIN 5 MG TABLET PO SCH (22:09)
[2019-09-10] MEDS: CITALOPRAM 10 MG TABLET PO SCH (22:09)
[2019-09-10] MEDS: SENOSIDES 8.6 MG TAB PO SCH (22:10)
[2019-09-10] MEDS: ATORVASTATIN 40 MG TAB PO SCH (22:19)
[2019-09-11 00:10] VITALS: O2SAT 98
[2019-09-11] MEDS: INSULIN -REGULAR HUMAN 50 UNIT/0.5 ML ML SQ SCH ×2 (07:30→11:30)
[2019-09-11] MEDS: NA CHLORIDE 0.9% 1,000 ML IV SCH ×2 (08:17→11:58)
[2019-09-11] MEDS: ENOXAPARIN 40 MG/0.4 ML SQ SCH (08:19)
[2019-09-11] MEDS: ASPIRIN EC 81 MG TAB PO SCH (08:20)
[2019-09-11] MEDS: ARIPiprazole 5 MG TAB PO SCH (08:21)
[2019-09-11] MEDS: QUETIAPINE 25 MG TAB PO SCH (08:21)
[2019-09-11] MEDS: BUSPIRONE HCL 5 MG TABLET PO SCH (08:22)
[2019-09-11] MEDS: LORATADINE 10 MG TAB PO SCH (08:22)
[2019-09-11] MEDS: DOCUSATE NA 100 MG CAP PO SCH (08:22)
[2019-09-11] MEDS: MEMANTINE HCL 10 MG TABLET PO SCH (08:22)
[2019-09-11] MEDS: BENZTROPINE 1 MG TAB PO SCH (08:23)
[2019-09-11] MEDS: GABAPENTIN 100 MG CAP PO SCH (08:23)
[2019-09-11] MEDS: OXYBUTYNIN CHLORIDE 5 MG TAB PO SCH (08:24)
[2019-09-11] MEDS: FENOFIBRATE 160 MG TAB PO SCH (08:24)
[2019-09-11] MEDS: VITAMIN D 1000 UNIT TAB PO SCH (08:24)
[2019-09-11] MEDS: DIVALPROEX NA 125 MG CAP PO SCH (08:25)
[2019-09-11] MEDS: MULTIVIT W/ MINERAL TAB PO SCH (08:25)
[2019-09-11] MEDS: ASCORBIC ACID 500 MG TABLET PO SCH (08:26)
[2019-09-11] MEDS: ZINC SULFATE 220 MG CAP PO SCH (08:30)
[2019-09-11] MEDS: FLUTICASONE 50MCG NASAL SPRAY NAS SCH (08:31)
[2019-09-11] MEDS: POLYVINYL ALCOHOL 1.4% 15 ML OPTH SCH (08:31)
--- NOTE | 2019-09-11 11:23 | P.DS ---
Admission Date: 09/08/19 Discharge Date: 09/11/19 Disposition: TRANSFER TO INTERMEDIATE Discharge Condition: GOOD Reason for Admission: Altered mental status Brief History of Present Illness: 68-[facility]-old [facility] resident with a history of CVA, dementia, schizophrenia was brought to the emergency department due to altered mental status. There is a report he was found naked, confused in another resident to room. There is a report patient had hyponatremia the last time he was confused. His UA in the ED suggested presence of UTI. He has mild hyponatremia. No leukocytosis and does not meet criteria for sepsis. No recorded fever. Patient was confused during my assessment in the ED and could not provide any history. He is admitted for further management. Hospital Course: (1) Metabolic encephalopathy (2) UTI (urinary tract infection) (3) Dementia with behavioral disturbance (4) Type 2 diabetes mellitus The patient was admitted and was monitored closely under telemetry. The patient was started on IV hydration and IV antibiotic. Home medications were continued and titrate as needed. His blood cultures and urine culture came back negative . His mental status improved and wanted to go home and is being discharged home today in a stable condition with advice to follow up with PCP in 1 week Vital Signs/Physical Exam: Temp Pulse Resp BP Pulse Ox 97.4 F 59 18 170/77 H 95 09/11/19 08:00 09/11/19 08:00 09/11/19 08:00 09/11/19 08:00 09/11/19 08:00 General: Alert, In no apparent distress HEENT: Atraumatic, Normocephalic Neck: Supple Respiratory: Clear to auscultation bilaterally Cardiovascular: No edema Capillary refill: <2 Seconds Gastrointestinal: Soft and benign Musculoskeletal: No clubbing Integumentary: No rashes Neurological: Other (Alert,) Lymphatics: No axilla or inguinal lymphadenopathy Laboratory Data at Discharge: WBC 5.8 K/uL (4.3-10.9) D 09/09/19 05:35 Hgb 11.6 g/dL (13.6-17.9) L 09/09/19 05:35 Hct 34.8 % (39.6-49.0) L 09/09/19 05:35 Plt Count 129 K/uL (152-406) L 09/09/19 05:35 PT 12.4 SECONDS (9.5-12.5) 09/08/19 19:35 INR 1.05 09/08/19 19:35 APTT 34.1 SECONDS (24.3-36.9) 09/08/19 19:35 Sodium 138 mmol/L (136-145) 09/10/19 04:23 Potassium 4.1 mmol/L (3.5-5.1) 09/10/19 04:23 BUN 17 mg/dL (7-18) 09/10/19 04:23 Creatinine 0.94 mg/dL (0.55-1.3) 09/10/19 04:23 Glucose 85 mg/dL (74-106) 09/10/19 04:23 Phosphorus 3.1 mg/dL (2.5-4.9) 09/09/19 05:35 Magnesium 2.1 mg/dL (1.8-2.4) 09/09/19 05:35 Total Bilirubin 0.5 mg/dL (0.2-1.0) 09/08/19 19:35 AST 36 U/L (15-37) 09/08/19 19:35 ALT 37 U/L (12-78) 09/08/19 19:35 Alkaline Phosphatase 69 U/L (45-117) 09/08/19 19:35 Lipase 107 U/L (73-393) 09/08/19 19:35 Home Medications: ARIPiprazole [Aripiprazole] 1 tab PO DAILY 09/09/19 Acetaminophen [Tylenol*] 650 mg PO BID 09/09/19 Amlodipine [Norvasc*] 10 mg PO DAILY 09/09/19 Ascorbic Acid [Vitamin C*] 1 tab PO DAILY 09/09/19 Aspirin [Aspirin EC 81 MG] 1 tab PO DAILY 09/09/19 Atorvastatin Calcium 40 mg PO BEDTIME 09/09/19 Benztropine Mesylate 1 tab PO DAILY 09/09/19 Buspirone HCl [Buspar*] 2.5 mg PO BEDTIME 09/09/19 Buspirone HCl [Buspar*] 5 mg PO DAILY 09/09/19 Cholecalciferol (Vitamin D3) [Vitamin D3] 1 tab PO DAILY 09/09/19 Citalopram [Celexa*] 20 mg PO BEDTIME 09/09/19 Dextran 70/Hypromellose/Pf [Genteal Tears 0.1%-0.3% Drop] 1 drop EACH EYE BID 09/09/19 Divalproex [Depakote Sprinkle*] 3 cap PO TID 09/09/19 Docusate Sodium 1 tab PO DAILY 09/09/19 Donepezil [Aricept*] 10 mg PO BEDTIME 09/09/19 Famotidine [Pepcid*] 20 mg PO BEDTIME 09/09/19 Fenofibrate,Micronized [Fenofibrate] 134 mg PO DAILY 09/09/19 Fluticasone Propionate 1 spray IH BID 09/09/19 Gabapentin [Neurontin*] 100 mg PO TID 09/09/19 Lisinopril [Zestril] 40 mg PO DAILY 09/09/19 Loratadine [Claritin*] 1 tab PO DAILY 09/09/19 Loratadine [Claritin*] 1 tab PO DAILY 09/09/19 Melatonin 10 mg PO BEDTIME 09/09/19 Memantine HCl [Namenda*] 1 tab PO BID 09/09/19 Metoprolol Tartrate [Lopressor*] 1 tab PO BID 09/09/19 Multivitamin with Minerals [Multivitamins with Minerals] 1 tab PO DAILY 09/09/19 Oxybutynin Chloride 5 mg PO BID 09/09/19 Quetiapine [Seroquel*] 1 tab PO BID 09/09/19 Sennosides [Senna] 2 tab PO BEDTIME 09/09/19 Zinc Sulfate [Zinc Sulfate*] 1 cap PO DAILY 09/09/19 Cefdinir [Omnicef] 300 mg PO BID #14 capsule 09/11/19 New Medications: Cefdinir [Omnicef] 300 mg PO BID #14 capsule Time spent managing pt's care (in minutes): 43
[2019-09-11 15:17] VITALS: BP 138/65; TEMP 97.3
== END 2019-09-11 13:54 | DRG 689 ==
LOC: ER 19:10 → ERHOLD 22:58 → 2ND 23:31
PROVIDERS: ADMIT Internal Medicine; ATTEND Family Medicine
DX: N39.0 Urinary tract infection, site not specified (principal); G93.41 Metabolic encephalopathy; E87.1 Hypo-osmolality and hyponatremia; F03.91 Unspecified dementia, unspecified severity, with behavioral disturbance; I10 Essential (primary) hypertension; E11.9 Type 2 diabetes mellitus without complications; K21.9 Gastro-esophageal reflux disease without esophagitis; E78.5 Hyperlipidemia, unspecified; Z86.73 Personal history of transient ischemic attack (TIA), and cerebral infarction without residual deficits; Z11.59 Encounter for screening for other viral diseases
CPT/HCPCS: 36415; 51702; 70450; 80048; 80076; 81003; 81015; 82550; 82553; 82947; 83690; 83735; 84100; 84443; 84484; 85025; 85610; 85730; 87040; 87086; 87088; 93005; 96365; 97162; 99285; J0696; J1650; J7030; U0002

== ENCOUNTER 2020-01-02 19:46 | Emergency (ER) | payer OTHER ==
--- OUTSIDE RECORDS SUMMARY | 2020-01-02 19:49 | XMS REPORT | Continuity of Care Document ---
:1950 Author Organization [facility] t Address [address] [place] [id number] Care Team Providers Name Role Phone DR [...] ID 2019-06-03 2019-06-17 Inpatient [facility] [id number] [address] [place] [address] 17:10:00 11:05:00 [facility] Results Test Description Test Time Test Comments Results Result Comments Source VALPROIC ACID (DEPAKENE) 2019-06-13 07:05:00 Test Item Value Reference Range Interpretation Comme nts VALP ACID (test code = 95A) 63.0 ug/mL 50.0-100.0 VALPROIC ACID (DEPAKENE)2019-06-09 06:51:00 Test Item Value Reference Range Interpretation Comments VALP ACID (test code = 95A) 57.5 ug/mL 50.0-100.0 AMMONIA [id number] 05:25:00 Test Item Value Reference Range Interpretation Comments AMMONIA (test code = 54A) 31 umol/L 11-32 B12 [id number] 20:14:00 Test Item Value Reference Range Interpretation Comments VIT B12 (test code = A60) 464.0 pg/mL 180.0-914.0 [id number] 20:14:00 Test Item Value Reference Range Interpretation Comments FOLATE (test code = A75) 8.1 ng/mL 3.1-17.5 THYROID PANEL/SCREEN (TSH)2019-06-03 20:04:00 Test Item Value Reference Range Interpretation Comments TSH (test code = A57) 0.541 uIU/mL 0.358-3.740 [id number] 20:03:00 Test Item Value Reference Range Interpretation Comments PREALBUMIN (test code = 08E) 18 mg/dL 18-38 LIPID [id number] 20:03:00 Test Item Value Reference Range Interpretation [...] (test code = 95A) 65.0 ug/mL 50.0-100.0 [id number] 19:45:00 Test Item Value Reference Range Interpretation Comments MAGNESIUM (test code = 48A) 1.8 mg/dL 1.8-2.4 [id number] 19:44:00 Test Item Value Reference Range Interpretation Comments Hb A1C % (test code = HBA) 5.2 % 4.2-6.3 [id number] 16:30:00 Test Item Value Reference Range Interpretation Comments ACETAMINPH (test code = 94M) <10.0 ug/mL 10.0-30.0 [id number] 16:23:00 Test Item Value Reference Range Interpretation Comments SALICYLATE (test code = 94B) <1.7 mg/dL 2.8-20.0 L ALCOHOL BLOOD (ETOH)2019-06-03 16:23:00 Test Item Value Reference Range Interpretation Comments ETOH (test code = HALC) ETHANOL The result is to be used only for medical purposes ALCOHOL (test code = <10 mg/dL <=10 56A) COMPREHENSIVE METABOLIC [id number] 16:22:00 Test Item Value Reference Range Interpretation [...] code = 31A) 37 IU/L <=78 CARDIAC [id number] 16:15:00 Test Item Value Reference Range Interpretation Comments TROPONIN I (test code = A84) <0.015 ng/mL 0.000-0.045 AMMONIA [id number] 16:08:00 Test Item Value Reference Range Interpretation [...] code = MDIFF) NO NO URINALYSIS WITH [id number] 15:15:00 Test Item Value Reference Range Interpretation [...] code = USPERM) /HPF NONE DRUGS OF [id number] 15:15:00 Test Item Value Reference Range Interpretation [...]
--- NOTE | 2020-01-02 20:58 | RAD REPORT ---
EXAM DESCRIPTION: CT - [id number] - 01/02/2020 8:47 pm CLINICAL HISTORY: Trauma, head and neck injury. fall COMPARISON: Head C Spine Mpr Wo Con dated 04/26/2019 TECHNIQUE: Axial 5 mm thick images of the head were obtained. Axial 2 mm thick images of the cervical spine were obtained with sagittal and coronal reconstruction images generated and reviewed. All CT scans are performed using dose optimization technique as appropriate and may include automated exposure control or mA/KV adjustment according to patient size. FINDINGS: CT HEAD WITHOUT CONTRAST: No acute hemorrhage, hydrocephalus or extra-axial collection is identified.Moderate generalized brain atrophy is present with mild periventricular and deep white matter chronic microvascular ischemic ch anges.No areas of brain edema or midline shift. The paranasal sinuses and mastoids are clear.The calvarium is intact. Left vertebral atherosclerosis. CT CERVICAL SPINE WITHOUT CONTRAST: No fracture or subluxation.Moderate lower cervical degenerative changes.No prevertebral soft tissues swelling is identified. IMPRESSION: No acute intracranial or cervical spine findings.
--- NOTE | 2020-01-02 21:35 | ER ---
Nurse's Notes [facility] Name: Nafisa Paulson Age: 69 yrs Sex: Male : 1950 Arrival Date: 01/02/2020 Time: 19:48 Bed 18 Private MD: Diagnosis: Unspecified injury of head Presentation: 01/01 19:54 Chief complaint: EMS states: "the pt had slipped when moving from his wheelchair to his jd3 bed and fell backwards hitting the back of his head. he has a small laceration. pt denies pain or LOC. A\\T\\O X 4.". Coronavirus screen: At this time, the client does not indicate any symptoms associated with coronavirus-19. Ebola Screen: Patient negative for fever greater than or equal to 101.5 degrees Fahrenheit, and additional compatible Ebola Virus Disease symptoms. Initial Sepsis Screen: Does the patient meet any 2 criteria? No. Patient's initial sepsis screen is negative. Does the patient have a suspected source of infection? No. Patient's initial sepsis screen is negative. Risk Assessment: Do you want to hurt yourself or someone else? Patient reports no desire to harm self or others. Onset of symptoms was January 02, 2020. 19:54 Method Of Arrival: EMS: [facility] jd3 19:54 Acuity: JAVIER 3 jd3 Historical: - Allergies: 19:59 No Known Allergies; jd3 - Home Meds: 19:59 aspirin 81 mg Oral chew 1 tab once daily [Active]; aripiprazole 15 mg Oral tab 1 tab jd3 once daily [Active]; benztropine 0.5 mg Oral tab 1 tab once daily [Active]; buspirone 5 mg Oral tab 1 tab daily [Active]; buspirone 5 mg Oral tab 0.5 tab nightly [Active]; citalopram 20 mg tab 1 tab nightly [Active]; atorvastatin 40 mg Oral tab 1 tab once daily [Active]; divalproex 125 mg Oral cpSP 3 caps 3 times per day [Active]; docusate sodium 100 mg Oral tab 1 tab once daily [Active]; fenofibrate 134 mg Oral once daily [Active]; Aricept 10 mg Oral tab 1 tab nightly [Active]; lisinopril 40 mg Oral tab 1 tab once daily [Active]; Hydrocortisone Topical [Active]; hydrochlorothiazide 12.5 mg Oral tab 1 tab once daily [Active]; memantine 10 mg Oral tab 1 tab 2 times per day [Active]; metoprolol tartrate 50 mg Oral tab [Active]; metoprolol tartrate 25 mg Oral tab 1 tab 2 times per day [Active]; Neurontin 100 mg Oral cap 3 times per day [Active]; Pepcid 20 mg Oral tab 1 tab nightly [Active]; Natural Tears (PF) ophthalmic [Active]; Norvasc 10 mg Oral tab 1 tab once daily [Active]; melatonin 10 mg Oral cap daily [Active]; oxybutynin chloride 5 mg Oral tab 1 tab 2 times per day [Active]; senna 8.6 mg Oral tab 2 tabs once daily [Active]; acetaminophen 325 mg Oral tab 1 tab [Active]; Seroquel 25 mg Oral tab 1 tab 2 times per day [Active]; Vitamin D Oral [Active]; - PMHx: 19:59 Hypertension; CVA; Dementia; Depression; HLD; Schizophrenia; GERD; Diabetes - IDDM; jd3 - Immunization history:: Adult Immunizations up to date, Last tetanus immunization: up to date. - Social history:: Smoking status: Patient denies any tobacco usage or history of. Screenin:50 Abuse screen: Denies threats or abuse. Nutritional screening: No deficits noted. jd3 Tuberculosis screening: No symptoms or risk factors identified. Fall Risk Fall in past 12 months (25 points). Ambulatory Aid- Crutches/Cane/Walker (15 pts). Gait- Weak (10 pts.). Mental Status- Oriented to own ability (0 pts). Total Esqueda Fall Scale indicates High Risk Score (45 or more points). Fall prevention measures have been instituted. Side Rails Up X 2 Placed Close to Nursing Station Frequent Obs/Assessments Occuring. Assessment: 19:55 General: Appears in no apparent distress. uncomfortable, Behavior is calm, cooperative, jd3 appropriate for age. Pain: Denies pain. Neuro: Level of Consciousness is awake, alert, obeys commands, Oriented to person, place, time, situation. Cardiovascular: Denies chest pain, Capillary refill < 3 seconds Patient's skin is warm and dry. Respiratory: Airway is patent Respiratory effort is even, unlabored, Respiratory pattern is regular, symmetrical, Denies cough, shortness of breath. GI: No signs and/or symptoms were reported involving the gastrointestinal system. : No signs and/or symptoms were reported regarding the genitourinary system. EENT: No signs and/or symptoms were reported regarding the EENT system. Derm: Skin is intact, Skin is dry, Skin is normal, Skin temperature is warm. Musculoskeletal: Circulation, motion, and sensation intact. Range of motion: intact in all extremities. Injury Description: Laceration sustained to back of head is 2.6 to 7.5 cm long, not bleeding. 20:53 Reassessment: Patient appears in no apparent distress at this time. No changes from [facility] previously documented assessment. Patient and/or family updated on plan of care and expected duration. Pain level reassessed. Patient is alert, oriented x 3, equal unlabored respirations, skin warm/dry/pink. 21:43 Reassessment: Patient appears in no apparent distress at this time. Patient and/or [facility] family updated on plan of care and expected duration. Pain level reassessed. Patient is alert, oriented x 3, equal unlabored respirations, skin warm/dry/pink. [facility] notified of pt discharge, report given to Shalom at [facility], Facility reporting that the ER will need to arrange transport back to facility, charge nurse notified. 22:00 Reassessment: [facility] notified pt read for transport, Nafisa Ruiz RN [employer]S ASSISTANT for facility sg states they will not be sending transport to the ER for pt transport to back to facility. pt updated, stated understanding. 22:11 Reassessment: [facility] notified for pt transport, pt to go back to [facility] via wheelchair sg transport with BLS services, awaiting pt transfer back to [facility] at this time. Vital Signs: 19:59 BP 153 / 61; Pulse 59; Resp 17 S; Temp 98.1(O); Pulse Ox 97% on R/A; Weight 90.72 kg jd3 (R); Height 6 ft. 0 in. (182.88 cm) (R); Pain 0/10; 20:54 BP 144 / 61; Pulse 58; Resp 17 S; Pulse Ox 98% on R/A; jd3 22:00 BP 136 / 64; Pulse 57; Resp 17 S; Pulse Ox 100% on R/A; jd3 19:59 Body Mass Index 27.12 (90.72 kg, 182.88 cm) [facility] ED Course: 19:48 Patient arrived in ED. am2 19:54 Dusty White, CLARISSE is Primary Nurse. [facility] 19:56 Triage completed. j 19:56 Wilver Santacruz PA is PHCP. [facility] 19:56 Waqar Iglesias MD is Attending Physician. [facility] 20:00 Arm band placed on. j 20:47 CT Head C Spine In Process Unspecified. EDMS 20:51 Patient has correct armband on for positive identification. Bed in low position. Call j light in reach. Side rails up X2. Adult w/ patient. Pulse ox on. NIBP on. 21:43 Assist provider with laceration repair on back of head that was between 2.6 to 7.5 cm [facility] using sinan. Set up tray. Performed by Wilver HAN Patient tolerated well. Patient did not have IV access during this emergency room visit. Administered Medications: No medications were administered Outcome: 21:34 Discharge ordered by . [facility] 21:44 Condition: stable j 22:25 Discharged to half-way. Report called to [place] [id number] 22:25 Discharge instructions given to patient, [facility] 22:26 Patient left the ED. [facility] Signatures: Dispatcher [employer] EDMS Fabian Alston, RN RN Wilver Santacruz PA PA [facility] Kacey Blair [facility] Dusty White RN RN j Corrections: (The following items were deleted from the chart) 21:48 21:43 Reassessment: Patient appears in no apparent distress at this time. Patient jd3 and/or family updated on plan of care and expected duration. Pain level reassessed. Patient is alert, oriented x 3, equal unlabored respirations, skin warm/dry/pink. [facility] notified of pt discharge, awaiting transport back to the facility. j
--- NOTE | 2020-01-02 21:35 | EDPHYS ---
Physician Documentation [facility] Name: Nafisa Paulson Age: 69 yrs Sex: Male : 1950 Arrival Date: 01/02/2020 Time: 19:48 Bed 18 Private MD: ED Physician Waqar Iglesias HPI: 01/01 19:58 This 69 yrs old Male presents to ER via EMS with complaints of Fall Injury. [place] 19:58 Details of fall: The patient fell from an upright position, while walking. Onset: The [place] symptoms/episode began/occurred acutely, just prior to arrival. Associated injuries: The patient sustained injury to the head. Denies vomiting, chest pain, shortness of breath. Historical: - Allergies: 19:59 No Known Allergies; jd3 - Home Meds: 19:59 aspirin 81 mg Oral chew 1 tab once daily [Active]; aripiprazole 15 mg Oral tab 1 tab jd3 once daily [Active]; benztropine 0.5 mg Oral tab 1 tab once daily [Active]; buspirone 5 mg Oral tab 1 tab daily [Active]; buspirone 5 mg Oral tab 0.5 tab nightly [Active]; citalopram 20 mg tab 1 tab nightly [Active]; atorvastatin 40 mg Oral tab 1 tab once daily [Active]; divalproex 125 mg Oral cpSP 3 caps 3 times per day [Active]; docusate sodium 100 mg Oral tab 1 tab once daily [Active]; fenofibrate 134 mg Oral once daily [Active]; Aricept 10 mg Oral tab 1 tab nightly [Active]; lisinopril 40 mg Oral tab 1 tab once daily [Active]; Hydrocortisone Topical [Active]; hydrochlorothiazide 12.5 mg Oral tab 1 tab once daily [Active]; memantine 10 mg Oral tab 1 tab 2 times per day [Active]; metoprolol tartrate 50 mg Oral tab [Active]; metoprolol tartrate 25 mg Oral tab 1 tab 2 times per day [Active]; Neurontin 100 mg Oral cap 3 times per day [Active]; Pepcid 20 mg Oral tab 1 tab nightly [Active]; Natural Tears (PF) ophthalmic [Active]; Norvasc 10 mg Oral tab 1 tab once daily [Active]; melatonin 10 mg Oral cap daily [Active]; oxybutynin chloride 5 mg Oral tab 1 tab 2 times per day [Active]; senna 8.6 mg Oral tab 2 tabs once daily [Active]; acetaminophen 325 mg Oral tab 1 tab [Active]; Seroquel 25 mg Oral tab 1 tab 2 times per day [Active]; Vitamin D Oral [Active]; - PMHx: 19:59 Hypertension; CVA; Dementia; Depression; HLD; Schizophrenia; GERD; Diabetes - IDDM; jd3 - Immunization history:: Adult Immunizations up to date, Last tetanus immunization: up to date. - Social history:: Smoking status: Patient denies any tobacco usage or history of. ROS: 19:58 Constitutional: Negative for fever, chills, and weight loss, Cardiovascular: Negative jmm for chest pain, palpitations, and edema, Respiratory: Negative for shortness of breath, cough, wheezing, and pleuritic chest pain, Abdomen/GI: Negative for abdominal pain, nausea, vomiting, diarrhea, and constipation. 19:58 Neuro: Positive for headache. 19:58 All other systems are negative. Exam: 19:58 Constitutional: This is a well developed, well nourished patient who is awake, alert, jmm and in no acute distress. 19:58 Eyes: EOMI, no conjunctival erythema appreciated ENT: Moist Mucus Membranes Neck: Trachea midline, Supple Chest/axilla: Normal chest wall appearance and motion. Cardiovascular: Regular rate and rhythm. No edema appreciated Respiratory: Normal respirations, no respiratory distress appreciated Abdomen/GI: Non distended, soft Back: Normal ROM Skin: General appearance color normal 19:58 MS/ Extremity: Moves all extremities, no obvious deformities appreciated, no edema noted to the lower extremities Neuro: Awake and alert, Psych: Behavior is normal, Mood is normal, Patient is cooperative and pleasant 19:58 Head/face: 2 cm laceration noted to the scalp. Vital Signs: 19:59 BP 153 / 61; Pulse 59; Resp 17 S; Temp 98.1(O); Pulse Ox 97% on R/A; Weight 90.72 kg jd3 (R); Height 6 ft. 0 in. (182.88 cm) (R); Pain 0/10; 20:54 BP 144 / 61; Pulse 58; Resp 17 S; Pulse Ox 98% on R/A; jd3 22:00 BP 136 / 64; Pulse 57; Resp 17 S; Pulse Ox 100% on R/A; jd3 19:59 Body Mass Index 27.12 (90.72 kg, 182.88 cm) jd3 Laceration: 21:32 Wound Repair of 2cm ( 0.8in ) subcutaneous laceration to back of head. Distal jmm neuro/vascular/tendon intact. Anesthesia: Local anesthetic administered with 1% lidocaine. Skin closed with 2 1-0 Avis using staple gun. Patient tolerated well. MDM: 20:11 Patient medically screened. [place] 21:32 Data reviewed: vital signs, nurses notes. Counseling: I had a detailed discussion with finn the patient and/or guardian regarding: the historical points, exam findings, and any diagnostic results supporting the discharge/admit diagnosis, the need for outpatient follow up, to return to the emergency department if symptoms worsen or persist or if there are any questions or concerns that arise at home. ED course: Patient given head injury return precautions and wound infection return precautions. Patient understood and agrees with the plan of care. . 01/01 19:58 Order name: CT Head C Spine; Complete Time: 21:08 [place] Administered Medications: No medications were administered Disposition: 01/02 00:45 Co-signature as Attending Physician, Waqar Iglesias MD. ewelina Disposition: 01/02/20 21:34 Discharged to Home. Impression: Unspecified injury of head. - Condition is Stable. - Discharge Instructions: Head Injury, Adult, Laceration Care, Adult. - Medication Reconciliation Form, Thank You Letter, Antibiotic Education, Prescription Opioid Use form. - Follow up: Private Physician; When: 7 - 10 days; Reason: Recheck today's complaints, Continuance of care, Staple/Suture removal, Re-evaluation by your physician. Signatures: Dispatcher [employer] EDMS Waqar Iglesias MD MD pkWilver Nunez PA PA jmm Davies, Jonathon, RN RN jd3 Corrections: (The following items were deleted from the chart) 01/01 22:26 21:34 01/02/2020 21:34 Discharged to Home. Impression: Unspecified injury of head. jd3 Condition is Stable. Forms are Medication Reconciliation Form, Thank You Letter, Antibiotic Education, Prescription Opioid Use. Follow up: Private Physician; When: 7 - 10 days; Reason: Recheck today's complaints, Continuance of care, Staple/Suture removal, Re-evaluation by your physician. finn
[2020-01-03 17:08] VITALS: TEMP 98.1
[2020-01-03 17:09] VITALS: BP 144/61; O2SAT 98
== END 2020-01-02 22:26 | disposition home or self-care (01) ==
LOC: ER 19:46
PROC: 0JQ00ZZ Repair Scalp Subcutaneous Tissue and Fascia, Open Approach (ICD-10-PCS; principal; 2020-01-02)
DX: S01.01XA Laceration without foreign body of scalp, initial encounter (principal); W05.0XXA Fall from non-moving wheelchair, initial encounter; Y93.89 Activity, other specified; Y92.9 Unspecified place or not applicable; Z79.82 Long term (current) use of aspirin; Z86.73 Personal history of transient ischemic attack (TIA), and cerebral infarction without residual deficits; I10 Essential (primary) hypertension; E11.9 Type 2 diabetes mellitus without complications; F20.9 Schizophrenia, unspecified; F03.90 Unspecified dementia, unspecified severity, without behavioral disturbance, psychotic disturbance, mood disturbance, and anxiety
CPT/HCPCS: 70450; 72125; 99284

== ENCOUNTER 2020-03-12 10:17 | Emergency (ER) | payer OTHER ==
[2020-03-12] MEDS ORDERED: SUCCINYLCHOLINE 20 MG/ML (10 ML) IV ONE (10:18)
[2020-03-12] MEDS ORDERED: ETOMIDATE 20 MG/10 ML VIAL IV ONE (10:18)
[2020-03-12 10:45] LABS: Basophils % 0.1 % (0-1.3); Hematocrit 33.3 % (39.6-49.0); Lymphocytes % 19.5 % (15.3-44.8); MPV 7.7 fL (7.6-11.3); RBC Red Blood Cell Count 3.79 M/uL (4.33-5.43)
--- OUTSIDE RECORDS SUMMARY | 2020-03-12 10:48 | XMS REPORT | Continuity of Care Document ---
:1950 Author Organization [facility] t Address [address] [place] [id number] Care Team Providers Name Role Phone DR [...] ID 2019-06-03 2019-06-17 Inpatient E [facility] [id number] [address] [place] [address] 17:10:00 11:05:00 [facility] Results Test Description Test Time Test Comments Results Result Comments Source VALPROIC ACID (DEPAKENE) 2019-06-13 07:05:00 Test Item Value Reference Range Interpretation Comme nts VALP ACID (test code = 95A) 63.0 ug/mL 50.0-100.0 VALPROIC ACID (DEPAKENE)2019-06-09 06:51:00 Test Item Value Reference Range Interpretation Comments VALP ACID (test code = 95A) 57.5 ug/mL 50.0-100.0 AMMONIA [id number] 05:25:00 Test Item Value Reference Range Interpretation Comments AMMONIA (test code = 54A) 31 umol/L 11-32 B12 [id number] 20:14:00 Test Item Value Reference Range Interpretation Comments VIT B12 (test code = A60) 464.0 pg/mL 180.0-914.0 [id number] 20:14:00 Test Item Value Reference Range Interpretation Comments FOLATE (test code = A75) 8.1 ng/mL 3.1-17.5 THYROID PANEL/SCREEN (TSH)2019-06-03 20:04:00 Test Item Value Reference Range Interpretation Comments TSH (test code = A57) 0.541 uIU/mL 0.358-3.740 [id number] 20:03:00 Test Item Value Reference Range Interpretation Comments PREALBUMIN (test code = 08E) 18 mg/dL 18-38 LIPID [id number] 20:03:00 Test Item Value Reference Range Interpretation [...] (test code = 95A) 65.0 ug/mL 50.0-100.0 [id number] 19:45:00 Test Item Value Reference Range Interpretation Comments MAGNESIUM (test code = 48A) 1.8 mg/dL 1.8-2.4 [id number] 19:44:00 Test Item Value Reference Range Interpretation Comments Hb A1C % (test code = HBA) 5.2 % 4.2-6.3 [id number] 16:30:00 Test Item Value Reference Range Interpretation Comments ACETAMINPH (test code = 94M) <10.0 ug/mL 10.0-30.0 [id number] 16:23:00 Test Item Value Reference Range Interpretation Comments SALICYLATE (test code = 94B) <1.7 mg/dL 2.8-20.0 L ALCOHOL BLOOD (ETOH)2019-06-03 16:23:00 Test Item Value Reference Range Interpretation Comments ETOH (test code = HALC) ETHANOL The result is to be used only for medical purposes ALCOHOL (test code = <10 mg/dL <=10 56A) COMPREHENSIVE METABOLIC [id number] 16:22:00 Test Item Value Reference Range Interpretation [...] code = 31A) 37 IU/L <=78 CARDIAC [id number] 16:15:00 Test Item Value Reference Range Interpretation Comments TROPONIN I (test code = A84) <0.015 ng/mL 0.000-0.045 AMMONIA [id number] 16:08:00 Test Item Value Reference Range Interpretation [...] code = MDIFF) NO NO URINALYSIS WITH [id number] 15:15:00 Test Item Value Reference Range Interpretation [...] code = USPERM) /HPF NONE DRUGS OF [id number] 15:15:00 Test Item Value Reference Range Interpretation [...] METHADONE (test code Negative NEGATIVE = 64A) DOAH (test code = VERONICA.) *URINE DRUG SCREEN Cut-off values are as follows: Cannabinoids 50 ng/mL Cocaine 300 ng/mL Amphetamines 1000 ng/mL Phencyclidine 25 ng/mL Benzodiazepines 200 ng.mL Methadone 300 ng/mL Barbiturates 200 ng/mL Opiates 2000 ng/mL
--- NOTE | 2020-03-12 10:49 | RAD REPORT ---
EXAM DESCRIPTION: CT - Ct Stroke Brain Wo Cont - 03/12/2020 10:40 am CLINICAL HISTORY: cva COMPARISON: August 2019 and 2015 TECHNIQUE: Computed axial tomography of the head was obtained. All CT scans are performed using dose optimization technique as appropriate and may include automated exposure control or mA/KV adjustment according to patient size. FINDINGS: An intracranial bleed is not seen . The ventricles are normal in caliber. No extra-axial fluid collection is noted. Mild chronic dilatation of the ventricles without significant change 2016 Fluid within the sinuses/ mastoids is not seen. IMPRESSION: No acute intracranial abnormality is seen. If patient's symptoms persist MRI of the bra in would be recommended. Dr Segal of the emergency room was notified at 10:28 a.m. March 12, 2020
[2020-03-12 10:55] LABS: Potassium 3.9 mmol/L (3.5-5.1)
[2020-03-12] MEDS ORDERED: ALTEPLASE 100 ML IV ONE (11:06)
[2020-03-12 11:09] LABS: Blood Morphology Comment NOT SEEN (NOT SEEN); Platelet Estimate DECR; White Blood Cell Scan OK (OK)
--- NOTE | 2020-03-12 11:38 | RAD REPORT ---
EXAM DESCRIPTION: Enoch Angio03/12/2020 11:23 am CLINICAL HISTORY: Left-sided droop COMPARISON: None TECHNIQUE: 50 cc Isovue 370 was administered intravenously. 3D MIP reconstruction performed All CT scans are performed using dose optimization technique as appropriate and may include automated exposure control or mA/KV adjustment according to patient size. FINDINGS: There is little flow throughout entire right vertebral artery. The left vertebral artery is patent. Mild plaque within the common carotid arteries and left internal carotid artery. Plaque within the right carotid bulb results in an approximately 55-60% stenosis IMPRESSION: Little flow throughout the right vertebral artery. 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 Age is indeterminate Moderate stenosis right carotid bulb NASCET criteria used. Mild 0-49% stenosis Moderate 50-69% stenosis Severe 70-99% stenosis
--- NOTE | 2020-03-12 11:42 | RAD REPORT ---
EXAM DESCRIPTION: CTHead angio03/12/2020 11:22 am CLINICAL HISTORY: Left facial droop COMPARISON: None TECHNIQUE: CT angiogram of the head was obtained. 3D MIPS reconstruction performed. All CT scans are performed using dose optimization technique as appropriate and may include automated exposure control or mA/KV adjustment according to patient size. FINDINGS: The basilar, internal carotid, anterior cerebral, middle cerebral and posterior cerebral a rteries are normal caliber. An aneurysm is not seen. A significant stenosis is not noted. IMPRESSION: Unremarkable CT angiogram head.
[2020-03-12] MEDS ORDERED: FOLIC ACID 5 MG/ML VIAL ONE (11:58)
[2020-03-12] MEDS ORDERED: NA CHLORIDE 0.9% 50 ML ONE (11:59)
--- NOTE | 2020-03-12 11:59 | RAD REPORT ---
EXAM DESCRIPTION: Jazmyn Single View03/12/2020 10:48 am CLINICAL HISTORY: CVA COMPARISON: April 2019 FINDINGS: The lungs appear clear of acute infiltrate. The heart is mildly enlarged IMPRESSION: No acute abnormalities displayed
[2020-03-12 12:22] LABS: Urine Blood TRACE (NEG); Urine Glucose NEGATIVE (NEG); Urine Protein NEGATIVE (NEG); Urine Specific Gravity 1.025 (1.005-1.030)
[2020-03-12 12:24] LABS: Urine Bacteria >50 /HPF (NONE SEEN); Urine RBC <5 /HPF (NONE SEEN)
[2020-03-12] MEDS ORDERED: RSI MEDICATION KIT IV ONE (13:22)
--- NOTE | 2020-03-12 13:42 | RAD REPORT ---
EXAM DESCRIPTION: CT - Head Brain Wo Cont - 03/12/2020 1:27 pm CLINICAL HISTORY: MENTAL STATUS CHANGE Headache, drowsiness COMPARISON: Head angio dated 03/12/2020; Ct Stroke Brain Wo Cont dated 03/12/2020; Neck Angio dated TECHNIQUE: All CT scans are performed using dose optimization technique as appropriate and may inclu de automated exposure control or mA/KV adjustment according to patient size. FINDINGS: No intracranial hemorrhage, hydrocephalus or extra-axial fluid collection.Mild to moderate brain atrophy is seen.No areas of brain edema or evidence of midline shift. The paranasal sinuses and mastoids are clear. The calvarium is intact. Left vertebral artery is calci fied. Soft tissue and fluid noted in the region of the nasopharynx and nasal cavity, new since [facility] r study same day. IMPRESSION: No acute intracranial abnormality.
--- NOTE | 2020-03-12 13:54 | RAD REPORT ---
EXAM DESCRIPTION: RAD - Chest Single View - 03/12/2020 1:25 pm CLINICAL HISTORY: POST ETT Chest pain. COMPARISON: Chest Single View dated 03/12/2020; Chest Single View dated 04/26/2019; Chest Single View dated 05/21/2015 FINDINGS: Portable technique limits examination quality. The lungs are grossly clear. The heart is normal in size. No displaced fractures.Tip of the ET tube i s above the marcell.
[2020-03-12] MEDS ORDERED: MIDAZOLAM HCL 2 MG/2 ML INJ ONE (14:20)
[2020-03-12] MEDS ORDERED: CEFTRIAXONE/SWI 1gm 1 GM/10 ML SYR ONE (14:29)
--- NOTE | 2020-03-12 14:30 | ER ---
Nurse's Notes [facility] Name: Nafisa Paulson Age: 69 yrs Sex: Male : 1950 Arrival Date: 03/12/2020 Time: 10:18 Bed 2 Private MD: Diagnosis: Weakness-Left Arm and Left Leg;Aphasia;Urinary tract infection, site not specified Presentation: 03/12 10:33 Chief complaint: EMS states: STROKE ALERT, LAST KNOWN NORMAL 0700, LEFT SIDED DEFICITS bp AND LEFT FACIAL DROOP. Coronavirus screen: At this time, the client does not indicate any symptoms associated with coronavirus-19. Ebola Screen: No symptoms or risks identified at this time. An acute neurological deficit is present. The charge nurse has been notified. The patient has been moved to a treatment area. The patients blood glucose was checked before arriving to the hospital and was found to be normal. Initial Sepsis Screen: Does the patient meet any 2 criteria? No. Patient's initial sepsis screen is negative. Does the patient have a suspected source of infection? No. Patient's initial sepsis screen is negative. Risk Assessment: Do you want to hurt yourself or someone else? Patient reports no desire to harm self or others. Onset of symptoms was March 12, 2020 at 07:00. 10:33 Method Of Arrival: EMS: [facility] bp 10:33 Acuity: JAVIER 1 bp Triage Assessment: 10:37 The onset of the patients symptoms was March 12, 2020 at 07:00. General: Appears bp distressed, obese, Behavior is cooperative, appropriate for age, anxious. Pain: Denies pain. EENT: No deficits noted. Neuro: Level of Consciousness is awake, alert, obeys commands, Admin Asst are weak on left Weakness in left leg(s) Facial droop on left, Reports weakness in left arm and left leg. Cardiovascular: No deficits noted. Respiratory: No deficits noted. GI: No signs and/or symptoms were reported involving the gastrointestinal system. : No signs and/or symptoms were reported regarding the genitourinary system. Derm: No deficits noted. Musculoskeletal: No deficits noted. Stroke Activation: Symtpom onset >3 hours and < 6 hours Physician: Stroke Attending; Name: ; Notified At: ; Arrived At: Physician: Chief Stroke Resident; Name: ; Notified At: ; Arrived At: Physician: Stroke Resident; Name: ; Notified At: ; Arrived At: Physician: ED Attending; Name: ; Notified At: ; Arrived At: Physician: ED Resident; Name: ; Notified At: ; Arrived At: Historical: - Allergies: 10:37 No Known Allergies; bp - PMHx: 10:37 METABOLIC ENCEPHALOPATHY; CVA; Dementia; Depression; Diabetes - IDDM; GERD; HLD; bp Hypertension; Schizophrenia; - Immunization history:: Adult Immunizations unknown. - Social history:: Smoking status: unknown. Screenin:30 Abuse screen: Denies threats or abuse. Denies injuries from another. Nutritional bp screening: No deficits noted. Tuberculosis screening: No symptoms or risk factors identified. Fall Risk None identified. Assessment: 10:17 VAN Scoring: Arm Drift: Flaccid/no antigravity Visual Disturbance: No visual bp disturbance noted. Aphasia: Expressive aphasia noted. Provider notified of +VAN scoring. Neglect: No neglect noted. The patient has not been NPO before screening. The patient is alert, and able to follow commands. The patient exhibits slurred or garbled speech. Provider notified of the indication for Speech Therapy consult. The patient is exhibiting difficulty speaking. The patient does not exhibit difficulty understanding words. The patient is able to swallow own secretions with no drooling or need for suction. Patient tolerated one teaspoon of water. No drooling, immediate coughing, gurgling, or clearing of the throat was noted. The patient tolerated 90mL of water. No drooling, immediate coughing, gurgling, or clearing of the throat was noted. The patient passed the bedside swallow screening. Oral medications may be given as ordered. Contact Physician for further diet orders. Provider notified of bedside swallow screening results: Roni Segal MD. General: STROKE ACTIVATION. PT TO CT WITH EMS. 10:20 T-PA (Activase) Screening: Indications: Definite evidence of stroke, ischemic, embolic, bp or hypertensive: Yes. Treatment will start within 4.5 hours onset of symptoms: Yes. No evidence of intracranial hemorrhage or CT of head and no evidence of peripheral hemorrhage or recent CVA: Yes. Consent for thrombolytic therapy: No. Contraindications: Other: NONE. 11:29 Reassessment: RETURNED FROM CTA. TPA INFUSING. Neuro: Level of Consciousness is obeys bp commands, lethargic, Oriented to person. 12:02 Reassessment: PT INCREASINGLY LETHARGIC, RESP SHALLOW. SWITCHED TO NRB FROM LA. bp PROVIDER AT / FOR RE-EVAL. 12:39 Reassessment: REPORT TO YESY ROBB AT [facility] FOR STROKE UNIT. bp 12:49 Reassessment: PER PROVIDER, NRB REPLACED WITH 4LNC. Neuro: Level of Consciousness is bp obtunded, Oriented to person, Admin Asst are weak on left. 13:00 Reassessment: EMS AT / FOR TRANSPORT. PT DECREASING LOC, PROVIDER NOTIFIED AND AT [facility]/. 13:16 Reassessment: INTUBATED WITHOUT INCIDENT, TRANSFER ON HOLD. bp 13:30 Reassessment: PT RETURNED FROM CT ANGIO. TRANSFER CHANGED TO NEURO ICU. bp 14:09 Reassessment: Suctioned small amount of bloody fluid form ET tube. Pt is moving, eyes ss opening. GUILLE Mishra notified and ordered Versed 2 mg. After administration, patient is sedated. Awaiting EMS transportation to higher level of care. 14:31 Reassessment: EMS AT / FOR TRANSPORT. bp Vital Signs: 10:37 BP 122 / 72; Pulse 50; Resp 16; Temp 97.6; Pulse Ox 98% on R/A; bp 10:40 Weight 113.4 kg; bp 12:00 BP 127 / 64; Pulse 54; Resp 15; Pulse Ox 100% on 15% Non-rebreather mask; bp 12:39 BP 117 / 64; Pulse 52; Resp 16; Temp 97.8; Pulse Ox 95% on 15% Non-rebreather mask; bp 13:30 BP 117 / 70; Pulse 40; Resp 16; Pulse Ox 100% ; bp 14:16 BP 90 / 55; Pulse 40; Resp 16; Pulse Ox 100% ; bp NIH Stroke Scale Scores: 10:17 NIHSS Score: 15 bp 10:31 NIHSS Score: 11 cp ED Course: 10:18 Patient arrived in ED. as 10:19 Juan Sanches PA is PHCP. cp 10:19 Roni Segal MD is Attending Physician. cp 10:30 Patient has correct armband on for positive identification. Placed in gown. Bed in low bp position. Call light in reach. Side rails up X2. sheet rock finisher on. Pulse ox on. NIBP on. 10:30 Maintain EMS IV. Dressing intact. Good blood return noted. Site clean \T\ dry. Gauge \T\ bp site: 18 GAUGE R AC. 10:32 Jesse Herman, RN is Primary Nurse. bp 10:35 Triage completed. bp 10:37 Arm band placed on. bp 10:39 CT Stroke Brain w/o Contrast In Process Unspecified. EDMS 10:45 Inserted saline lock: 20 gauge in right wrist, using aseptic technique. Blood collected.bp 10:48 Stroke CXR 1 View In Process Unspecified. EDMS 10:51 Transfer initiated with [facility], they are currently on stroke em1 divert, until further notice. 10:53 [facility] ([facility]3] contacted to initiate transfer, they are currently at saturation. em1 11:22 CT Head Angio In Process Unspecified. EDMS 11:22 CT Neck Angio In Process Unspecified. EDMS 11:23 Urine collected: Cali catheter specimen, clear. Cali cath inserted, using sterile mh5 technique, 16 Fr., by ut, balloon inflated, urine specimen collected. 11:24 Urine Microscopic Only Sent. 5 11:24 Urine Culture Sent. 5 13:11 Assisted provider with intubation using 7.5 mm ETT via oral route. ET tube secured at jd3 20cm at the teeth. Set up intubation tray. Intubated by Juan HAN Placement verified by CXR, Patient tolerated well. 13:24 CXR XRAY In Process Unspecified. EDMS 13:27 CT Head Brain wo Cont In Process Unspecified. EDMS 14:31 Patient transferred, IV remains in place. bp 14:45 Assisted provider with central line placement. Set up central line tray. Triple lumen bp line placed in right femoral. Line placed by Juan HAN Placement verified by blood return, Dressed with Tegaderm, Patient tolerated well. Before procedure, did Practitioner(s) obtain informed consent? No. Patient \T\ family education about procedure, CLABSI prevention and S/S of infection? No. Time-out/Briefing performed prior to start of procedure? Yes. Was handwashing/sanitizing done immediately prior to procedure? Yes. Was patient positioned to in a way to prevent air embolism? Yes. Was procedure site sterilized? Yes, with chlorhexidine. Was the site allowed to dry? Yes. Was local anesthetic and/or sedation utilized? Yes. During the procedure, did the Practitioner(s) maintain a sterile field? Yes. Were unused ports clamped during insertion? Yes. Was a 2nd qualified MD obtained after 3 unsuccessful insertion attempts? No. Was blood aspirated from each lumen? Yes. After the procedure, did the Practitioner(s) clean the site and apply a sterile dressing? Yes. Administered Medications: 10:50 Drug: foLIC Acid 1 mg Route: IVPB; Site: right antecubital; bp 15:16 Follow up: IV Status: Completed infusion bp 10:50 Drug: Alteplase {Co-Signature: jd3 (Dusty White RN).} Route: IV Thrombolytics; bp Rate: calculated rate; 12:00 Follow up: Response: No adverse reaction bp 15:15 Follow up: Response: No adverse reaction bp 13:00 Drug: Rocephin 1 grams Route: IV; Rate: calculated rate; Site: right wrist; bp 15:14 Follow up: IV Status: Completed infusion; IV Intake: 20ml bp 13:10 Drug: Etomidate 20 mg Route: IVP; Site: right wrist; jd3 14:28 Follow up: Response: No adverse reaction bp 13:10 Drug: Succinylcholine 100 mg Route: IVP; Site: right wrist; jd3 14:28 Follow up: Response: No adverse reaction bp 14:09 Drug: Versed 2 mg Route: IVP; Site: right antecubital; ss 14:27 Follow up: Response: No adverse reaction; Anxiety decreased bp 15:00 Drug: Dopamine drip 2 mcg/kg/min - (DOPamine 400 mg, D5W 250 ml) Route: IV; Rate: bp calculated rate; Site: right femoral; 15:15 Follow up: IV Status: Infusion continued upon transfer bp 15:14 CANCELLED (Duplicate Order): Dopamine drip 5 mcg/kg/min - (DOPamine 400 mg, D5W 250 ml) bp IV at calculated rate continuous; Titrate to keep systolic blood pressure greater than 90mmHg Point of Care Testing: Blood Glucose: 10:37 Blood Glucose: 87 mg/dL; bp Ranges: Intake: 15:14 IV: 20ml; Total: 20ml. bp Outcome: 14:30 ER care complete, transfer ordered by . cp 15:12 [facility], Transfer form completed. bp 15:12 Condition: stable 15:12 Instructed on the need for transfer. 15:44 Patient left the ED. jd3 NIH Stroke Scale - NIH Stroke Score Date: 03/12/2020 Time: 10:17 Total Score = 15 1a. Level of Consciousness (LOC) - 0(Alert) 1b. Level of Consciousness (LOC) (Year \T\ Age) - 0(Both) 1c. LOC Commands (Open \T\ Closes Eyes/Student Education Specialist) - 0(Both) 2. Best Gaze (Lateral Gaze Paresis) - 0(Normal) 3. Visual Field Loss - 1(Partial hemianopia) 4. Facial Palsy - 2(Partial paralysis) 5a. Left Arm: Motor (10-second hold) - 4(No movement) 5b. Right Arm: Motor (10-second hold) - 1(Drift) 6a. Left Leg: Motor (5-second hold - always test supine) - 3(No effort against gravity) 6b. Right Leg: Motor (5-second hold - always test supine) - 1(Drift) 7. Limb Ataxia (finger/nose \T\ heel/levy - test with eyes open) - 1(Present in one limb) 8. Sensory Loss (pinprick arms/legs/face) - 0(Normal) 9. Best Language: Aphasia (description/naming/reading) - 1(Mild to moderate aphasia) 10. Dysarthria (speech clarity - read or repeat words) - 1(Mild to Moderate) 11. Extinction and Inattention (visual/tactile/auditory/spatial/personal) - 0(No abnormality) Initials: bp NIH Stroke Scale - NIH Stroke Score Date: 03/12/2020 Time: 10:31 Total Score = 11 1a. Level of Consciousness (LOC) - 0(Alert) 1b. Level of Consciousness (LOC) (Year \T\ Age) - 1(One) 1c. LOC Commands (Open \T\ Closes Eyes/Student Education Specialist) - 0(Both) 2. Best Gaze (Lateral Gaze Paresis) - 1(Partial gaze palsy) 3. Visual Field Loss - 0(No visual loss) 4. Facial Palsy - 2(Partial paralysis) 5a. Left Arm: Motor (10-second hold) - 2(Drift, some effort against gravity) 5b. Right Arm: Motor (10-second hold) - 0(No drift) 6a. Left Leg: Motor (5-second hold - always test supine) - 2(Drift, some effort against gravity) 6b. Right Leg: Motor (5-second hold - always test supine) - 0(No drift) 7. Limb Ataxia (finger/nose \T\ heel/levy - test with eyes open) - 0(Absent) 8. Sensory Loss (pinprick arms/legs/face) - 1(Mild to moderate loss) 9. Best Language: Aphasia (description/naming/reading) - 0(No aphasia) 10. Dysarthria (speech clarity - read or repeat words) - 2(Severe) 11. Extinction and Inattention (visual/tactile/auditory/spatial/personal) - 0(No abnormality) Initials: cp Signatures: Dispatcher [employer] Carmen Butler, Hossein em1 Kristina Dietrich RN RN ss Juan Sanches PA PA cp Martinez, Maria [facility] Dusty White RN RN jd3 Jesse Herman RN RN bp Dusty White RN jd3 Corrections: (The following items were deleted from the chart) 12:20 12:02 Reassessment: PT INCREASINGLY LETHARGIC, RESP SHALLOW. SWITCHED TO NRB bp FROM NC bp
--- NOTE | 2020-03-12 14:30 | EDPHYS ---
Physician Documentation [facility] Name: Nafisa Self Age: 69 yrs Sex: Male : 1950 Arrival Date: 03/12/2020 Time: 10:18 Bed 2 Private MD: ED Physician Roni Segal HPI: 03/12 10:40 This 69 yrs old Male presents to ER via EMS with complaints of S/S of cp Possible Stroke. 10:40 The patient's problem is reported as a facial droop, on left, weakness, in the left cp upper extremity, in the left lower extremity. 10:40 Onset: The symptoms/episode began/occurred this morning, at 09:30. Duration: The cp episode is continuous. Context: the episode(s) was witnessed, physical therapist at [facility]. Associated signs and symptoms: Pertinent negatives: difficulty communicating. 10:40 Patient's baseline: Neuro: alert and fully oriented, Motor: left-sided weakness, cp Ambulation: walks with assist only, Speech: clear, The patient has a previous history of CVA. Historical: - Allergies: 10:37 No Known Allergies; bp - PMHx: 10:37 METABOLIC ENCEPHALOPATHY; CVA; Dementia; Depression; Diabetes - IDDM; GERD; HLD; bp Hypertension; Schizophrenia; - Immunization history:: Adult Immunizations unknown. - Social history:: Smoking status: unknown. ROS: 10:45 Constitutional: Negative for fever. cp 10:45 ENT: Positive for left side facial droop. cp 10:45 Neuro: Positive for weakness, of the left arm and left leg. 10:45 Unable to obtain ROS due to speech incomprehensible. Exam: 10:31 Radiologist reports: no acute findings cp 10:42 ECG was reviewed by the Attending Physician. cp 10:45 Constitutional: The patient appears in no acute distress, alert, awake, cp non-diaphoretic, non-toxic, well developed, well nourished. 10:45 Head/face: Noted is left side facial droop. 10:45 Eyes: Periorbital structures: appear normal, Pupils: equal, round, and reactive to light and accomodation, Conjunctiva: normal, no exudate, no injection, Sclera: no appreciated abnormality. 10:45 ENT: External ear(s): are unremarkable, Nose: is normal, Mouth: Lips: moist, Oral mucosa: moist, Posterior pharynx: Airway: no evidence of obstruction, patent. 10:45 Neck: ROM/movement: is normal, is supple, without pain, no range of motions limitations. 10:45 Chest/axilla: Inspection: normal, Palpation: is normal, no crepitus, no tenderness. 10:45 Cardiovascular: Rate: bradycardic, Rhythm: regular, Edema: is not appreciated, JVD: is not appreciated. 10:45 Respiratory: the patient does not display signs of respiratory distress, Respirations: normal, no use of accessory muscles, no retractions, labored breathing, is not present, Breath sounds: are clear throughout, no decreased breath sounds, no stridor, no wheezing. 10:45 Abdomen/GI: Inspection: abdomen appears normal, Bowel sounds: active, all quadrants, Palpation: abdomen is soft and non-tender, in all quadrants. 10:45 Back: pain, is absent. 10:45 Skin: no rash present. 10:45 Neuro: Orientation: unable to test, noted aphasia, Mentation: able to follow commands, Motor: strength is 5/5 in the right arm and right leg, Strength is 3/5 in the left arm and left leg, Sensation: light touch is decreased in the left arm and left leg. Vital Signs: 10:37 BP 122 / 72; Pulse 50; Resp 16; Temp 97.6; Pulse Ox 98% on R/A; bp 10:40 Weight 113.4 kg; bp 12:00 BP 127 / 64; Pulse 54; Resp 15; Pulse Ox 100% on 15% Non-rebreather mask; bp 12:39 BP 117 / 64; Pulse 52; Resp 16; Temp 97.8; Pulse Ox 95% on 15% Non-rebreather mask; bp 13:30 BP 117 / 70; Pulse 40; Resp 16; Pulse Ox 100% ; bp 14:16 BP 90 / 55; Pulse 40; Resp 16; Pulse Ox 100% ; bp NIH Stroke Scale Scores: 10:17 NIHSS Score: 15 bp 10:31 NIHSS Score: 11 cp Procedures: 13:25 Intubation: Ventilated with 100% NRB prior to procedure. O2 saturation prior to cp procedure was 100 %. Intubated orally using # 3 Tanner blade with 7.5 mm ETT. was successful on first attempt. Ventilated with ventilator. Tube secured with ETT morales at right side of mouth measured 21 cm at teeth. Placement verified by CO2 detector with (+) color change, auscultating bilateral breath sounds, O2 saturation after procedure was 100 %. Patient tolerated well. 15:01 Central Line: the site was prepped with Betadine, in sterile fashion, a triple lumen cp catheter was inserted, in the right femoral vein, in 1 attempts. placement was verified, by blood return, the site was dressed with using sterile technique, the patient tolerated the procedure, well. MDM: 10:31 Patient medically screened. cp 10:50 Physician consultation: Christiano Coughlin MD was called at 10:45, was contacted at 10:45, cp regarding consult, patient's condition, recommends patient be given tpa and perform CT angio of head and neck. 13:48 ED course: Spoke with DR Burnham who reports repeat non-contrast head CT negative for cp intracranial bleed. 15:45 Data reviewed: vital signs, nurses notes, lab test result(s), EKG, radiologic studies, cp CT scan, plain films, I have discussed the patient's presentation/case with the attending Emergency Department Physician;. 15:45 Test interpretation: by ED physician or midlevel provider: ECG, plain radiologic cp studies. Response to treatment: the patient's symptoms have markedly improved after treatment. 03/12 10:37 Order name: Basic Metabolic Panel; Complete Time: :03/12 10:37 Order name: CBC with Diff; Complete Time: : 03/12 11:24 Interpretation: Normal except: RBC 3.79; HGB 11.0; HCT 33.3; PLT 86; RDW 15.5. cp 03/12 10:37 Order name: Protime (+inr); Complete Time: 11:23 1 03/12 10:37 Order name: Ptt, Activated; Complete Time: 11: 03/12 10:43 Order name: AMMONIA; Complete Time: 12:16 cp 03/12 10:43 Order name: Urine Culture cp 03/12 10:37 Order name: CT Stroke Brain w/o Contrast; Complete Time: 11:23 1 03/12 10:37 Order name: Stroke CXR 1 View; Complete Time: 12:16 [facility] 03/12 10:43 Order name: Urine Microscopic Only; Complete Time: 12:41 cp 03/12 10:43 Order name: Glucose, Ancillary Testing; Complete Time: 11:23 EDMS 03/12 10:48 Order name: CBC Smear Scan; Complete Time: 11:23 EDMS 03/12 10:50 Order name: CT Head Angio; Complete Time: 12:16 cp 03/12 10:50 Order name: CT Neck Angio; Complete Time: 12:16 cp 03/12 11:23 Order name: Urine Dipstick--Ancillary (enter results); Complete Time: 12:41 em03/12 10:37 Order name: EKG; Complete Time: 10:38 em03/12 10:37 Order name: Accucheck; Complete Time: 10:45 em03/12 10:37 Order name: Cardiac monitoring; Complete Time: 10:45 em03/12 10:37 Order name: EKG - Nurse/Tech; Complete Time: 10:46 em03/12 10:37 Order name: IV Saline Lock; Complete Time: 10:45 03/12 10:37 Order name: Labs collected and sent; Complete Time: 10:45 03/12 13:15 Order name: CXR XRAY; Complete Time: 14:20 bp 03/12 13:15 Order name: CT Head Brain wo Cont; Complete Time: 14:20 bp 03/12 10:37 Order name: NPO; Complete Time: 10:45 03/12 10:37 Order name: O2 Per Protocol; Complete Time: 10:45 03/12 10:37 Order name: O2 Sat Monitoring; Complete Time: 10:45 03/12 10:37 Order name: Stroke Swallow Screen; Complete Time: 10:45 03/12 10:43 Order name: Cath; Complete Time: 11:24 cp 03/12 10:43 Order name: Urine Dipstick-Ancillary (obtain specimen); Complete Time: 11:24 cp EC:42 Rate is 47 beats/min. Rhythm is regular. CT interval is normal. QRS interval is normal. cp QT interval is normal. T waves are Flattened in leads I, aVL. Interpreted by me. Reviewed by me. Administered Medications: 10:50 Drug: foLIC Acid 1 mg Route: IVPB; Site: right antecubital; bp 15:16 Follow up: IV Status: Completed infusion bp 10:50 Drug: Alteplase {Co-Signature: jd3 (Dusty White RN).} Route: IV Thrombolytics; bp Rate: calculated rate; 12:00 Follow up: Response: No adverse reaction bp 15:15 Follow up: Response: No adverse reaction bp 13:00 Drug: Rocephin 1 grams Route: IV; Rate: calculated rate; Site: right wrist; bp 15:14 Follow up: IV Status: Completed infusion; IV Intake: 20ml bp 13:10 Drug: Etomidate 20 mg Route: IVP; Site: right wrist; jd3 14:28 Follow up: Response: No adverse reaction bp 13:10 Drug: Succinylcholine 100 mg Route: IVP; Site: right wrist; jd3 14:28 Follow up: Response: No adverse reaction bp 14:09 Drug: Versed 2 mg Route: IVP; Site: right antecubital; ss 14:27 Follow up: Response: No adverse reaction; Anxiety decreased bp 15:00 Drug: Dopamine drip 2 mcg/kg/min - (DOPamine 400 mg, D5W 250 ml) Route: IV; Rate: bp calculated rate; Site: right femoral; 15:15 Follow up: IV Status: Infusion continued upon transfer bp 15:14 CANCELLED (Duplicate Order): Dopamine drip 5 mcg/kg/min - (DOPamine 400 mg, D5W 250 ml) bp IV at calculated rate continuous; Titrate to keep systolic blood pressure greater than 90mmHg Point of Care Testing: Blood Glucose: 10:37 Blood Glucose: 87 mg/dL; bp Ranges: Critical Glucose Levels:Adult <50 mg/dl or >400 mg/dl <40 mg/dl or >180 mg/dl Disposition: 16:00 Chart complete. cp 16:50 Co-signature as Attending Physician, Roni Segal MD I agree with the assessment and kdr plan of care. Disposition: 03/12/20 14:30 Transfer ordered to [facility]. Diagnosis are Weakness - Left Arm and Left Leg, Aphasia, Urinary tract infection, site not specified. - Reason for transfer: Higher level of care. - Accepting physician is DR Hernandez. - Condition is Stable. - Problem is new. - Symptoms have worsened. Critical care time excluding procedures: 16:00 Critical care time: Bedside Care: 15 minutes, Consultation: 40 minutes. Total time: 55 cp minutes NIH Stroke Scale - NIH Stroke Score Date: 03/12/2020 Time: 10:17 Total Score = 15 1a. Level of Consciousness (LOC) - 0(Alert) 1b. Level of Consciousness (LOC) (Year \T\ Age) - 0(Both) 1c. LOC Commands (Open \T\ Closes Eyes/Wardrobe Specialty Worker) - 0(Both) 2. Best Gaze (Lateral Gaze Paresis) - 0(Normal) 3. Visual Field Loss - 1(Partial hemianopia) 4. Facial Palsy - 2(Partial paralysis) 5a. Left Arm: Motor (10-second hold) - 4(No movement) 5b. Right Arm: Motor (10-second hold) - 1(Drift) 6a. Left Leg: Motor (5-second hold - always test supine) - 3(No effort against gravity) 6b. Right Leg: Motor (5-second hold - always test supine) - 1(Drift) 7. Limb Ataxia (finger/nose \T\ heel/levy - test with eyes open) - 1(Present in one limb) 8. Sensory Loss (pinprick arms/legs/face) - 0(Normal) 9. Best Language: Aphasia (description/naming/reading) - 1(Mild to moderate aphasia) 10. Dysarthria (speech clarity - read or repeat words) - 1(Mild to Moderate) 11. Extinction and Inattention (visual/tactile/auditory/spatial/personal) - 0(No abnormality) Initials: bp NIH Stroke Scale - NIH Stroke Score Date: 03/12/2020 Time: 10:31 Total Score = 11 1a. Level of Consciousness (LOC) - 0(Alert) 1b. Level of Consciousness (LOC) (Year \T\ Age) - 1(One) 1c. LOC Commands (Open \T\ Closes Eyes/Wardrobe Specialty Worker) - 0(Both) 2. Best Gaze (Lateral Gaze Paresis) - 1(Partial gaze palsy) 3. Visual Field Loss - 0(No visual loss) 4. Facial Palsy - 2(Partial paralysis) 5a. Left Arm: Motor (10-second hold) - 2(Drift, some effort against gravity) 5b. Right Arm: Motor (10-second hold) - 0(No drift) 6a. Left Leg: Motor (5-second hold - always test supine) - 2(Drift, some effort against gravity) 6b. Right Leg: Motor (5-second hold - always test supine) - 0(No drift) 7. Limb Ataxia (finger/nose \T\ heel/levy - test with eyes open) - 0(Absent) 8. Sensory Loss (pinprick arms/legs/face) - 1(Mild to moderate loss) 9. Best Language: Aphasia (description/naming/reading) - 0(No aphasia) 10. Dysarthria (speech clarity - read or repeat words) - 2(Severe) 11. Extinction and Inattention (visual/tactile/auditory/spatial/personal) - 0(No abnormality) Initials: cp Signatures: Dispatcher [employer] EDMS Roni Segal MD MD kdr Martinez, Eric em1 Kristina Dietrich RN RN ss Juan Sanches PA PA cp Davies, Jonathon, RN RN jd3 Jesse Herman RN RN bp Dusty White RN jd3 Corrections: (The following items were deleted from the chart) 15:14 15:14 Dopamine drip 5 mcg/kg/min - (DOPamine 400 mg, D5W 250 ml) IV at bp calculated rate continuous; Titrate to keep systolic blood pressure greater than 90mmHg ordered. bp 15:44 14:30 03/12/2020 14:30 Transfer ordered to [facility]. Diagnosis jd3 is Weakness - Left Arm and Left Leg; Aphasia; Urinary tract infection, site not specified. Reason for transfer: Higher level of care. Accepting physician is DR Hernandez. Condition is Stable. Problem is new. Symptoms have worsened. cp
[2020-03-12] MEDS ORDERED: DOPAMINE/D5W 400 MG/250 ML BAG IV ONE (14:50)
[2020-03-12 15:52] VITALS: TEMP 97.8
[2020-03-12 15:53] VITALS: O2SAT 100
[2020-03-12 15:54] VITALS: BP 90/55
--- NOTE | 2020-03-13 07:52 | EKG ---
Test Date: 2020-03-12 Test Time: 10:34:28 Civil Engineering Project Designer: ART MEASUREMENT RESULTS: Intervals: Rate: 47 MA: 190 QRSD: 88 QT: 480 QTc: 424 [place]: P: 34 MA: 190 QRS: -25 T: 46 INTERPRETIVE STATEMENTS: Sinus bradycardia Minimal voltage criteria for LVH, may be normal variant Nonspecific ST abnormality Abnormal ECG Compared to ECG 09/08/2019 19:25:05 ST (T wave) deviation now present Atrial premature complex(es) no longer present Myocardial infarct finding no longer present Electronically Signed On 03-13-20 07:49:35 FILTER WASHER AND PRESSER by Ammon Loaiza
== END 2020-03-12 15:44 | disposition short-term general hospital (02) ==
LOC: ER 10:17
DX: R47.01 Aphasia (principal); R29.810 Facial weakness; N39.0 Urinary tract infection, site not specified; Z86.73 Personal history of transient ischemic attack (TIA), and cerebral infarction without residual deficits; I10 Essential (primary) hypertension; F20.9 Schizophrenia, unspecified; F03.90 Unspecified dementia, unspecified severity, without behavioral disturbance, psychotic disturbance, mood disturbance, and anxiety; F32.9 Major depressive disorder, single episode, unspecified; E11.9 Type 2 diabetes mellitus without complications; Z79.4 Long term (current) use of insulin; K21.9 Gastro-esophageal reflux disease without esophagitis; E78.5 Hyperlipidemia, unspecified
CPT/HCPCS: 92977; 93005; 87088; 85025; 87086; 80048; 36415; 82140; 85610; 82947; 85730; 87077; 87186; 70450 ×2; 70496; 70498; 71045 ×2; 31500; 51702; 99291; 99292; Q9967; J2997; J0330; J2250; J0696; J1265; 81003; 81015

== ENCOUNTER 2020-03-16 00:41 | Observation (INO) | payer OTHER ==
--- OUTSIDE RECORDS SUMMARY | 2020-03-16 00:47 | XMS REPORT | Continuity of Care Document ---
:1950 Author Organization [facility] t Address [address] [place] [id number] Care Team Providers Name Role Phone DR [...] ID 2019-06-03 2019-06-17 Inpatient E [facility] [id number] [address] [place] [address] 17:10:00 11:05:00 [facility] Results Test Description Test Time Test Comments Results Result Comments Source VALPROIC ACID (DEPAKENE) 2019-06-13 07:05:00 Test Item Value Reference Range Interpretation Comme nts VALP ACID (test code = 95A) 63.0 ug/mL 50.0-100.0 VALPROIC ACID (DEPAKENE)2019-06-09 06:51:00 Test Item Value Reference Range Interpretation Comments VALP ACID (test code = 95A) 57.5 ug/mL 50.0-100.0 AMMONIA [id number] 05:25:00 Test Item Value Reference Range Interpretation Comments AMMONIA (test code = 54A) 31 umol/L 11-32 B12 [id number] 20:14:00 Test Item Value Reference Range Interpretation Comments VIT B12 (test code = A60) 464.0 pg/mL 180.0-914.0 [id number] 20:14:00 Test Item Value Reference Range Interpretation Comments FOLATE (test code = A75) 8.1 ng/mL 3.1-17.5 THYROID PANEL/SCREEN (TSH)2019-06-03 20:04:00 Test Item Value Reference Range Interpretation Comments TSH (test code = A57) 0.541 uIU/mL 0.358-3.740 [id number] 20:03:00 Test Item Value Reference Range Interpretation Comments PREALBUMIN (test code = 08E) 18 mg/dL 18-38 LIPID [id number] 20:03:00 Test Item Value Reference Range Interpretation [...] (test code = 95A) 65.0 ug/mL 50.0-100.0 [id number] 19:45:00 Test Item Value Reference Range Interpretation Comments MAGNESIUM (test code = 48A) 1.8 mg/dL 1.8-2.4 [id number] 19:44:00 Test Item Value Reference Range Interpretation Comments Hb A1C % (test code = HBA) 5.2 % 4.2-6.3 [id number] 16:30:00 Test Item Value Reference Range Interpretation Comments ACETAMINPH (test code = 94M) <10.0 ug/mL 10.0-30.0 [id number] 16:23:00 Test Item Value Reference Range Interpretation Comments SALICYLATE (test code = 94B) <1.7 mg/dL 2.8-20.0 L ALCOHOL BLOOD (ETOH)2019-06-03 16:23:00 Test Item Value Reference Range Interpretation Comments ETOH (test code = HALC) ETHANOL The result is to be used only for medical purposes ALCOHOL (test code = <10 mg/dL <=10 56A) COMPREHENSIVE METABOLIC [id number] 16:22:00 Test Item Value Reference Range Interpretation [...] code = 31A) 37 IU/L <=78 CARDIAC [id number] 16:15:00 Test Item Value Reference Range Interpretation Comments TROPONIN I (test code = A84) <0.015 ng/mL 0.000-0.045 AMMONIA [id number] 16:08:00 Test Item Value Reference Range Interpretation [...] code = MDIFF) NO NO URINALYSIS WITH [id number] 15:15:00 Test Item Value Reference Range Interpretation [...] code = USPERM) /HPF NONE DRUGS OF [id number] 15:15:00 Test Item Value Reference Range Interpretation [...]
[2020-03-16 01:45] LABS: Basophils % 0.1 % (0-1.3); Hematocrit 32.6 % (39.6-49.0); MPV 7.3 fL (7.6-11.3); RBC Red Blood Cell Count 3.72 M/uL (4.33-5.43)
[2020-03-16 01:46] LABS: Protime INR 0.97
[2020-03-16 02:07] LABS: Potassium 3.9 mmol/L (3.5-5.1); Troponin (Emerg Dept Use Only) 0.02 ng/mL (0.0-0.045)
--- NOTE | 2020-03-16 02:20 | EDPHYS ---
Physician Documentation [facility] Name: Nafisa Self Age: 69 yrs Sex: Male : 1950 Arrival Date: 03/16/2020 Time: 00:42 Bed 6 Private MD: ED Physician Eddie Yang HPI: 03/16 01:18 This 69 yrs old Male presents to ER via Unassigned with complaints of S/S of mh7 Possible Stroke. 01:18 The patient's problem is reported as altered mental status, disoriented to place, time, mh7 weakness, in the right upper extremity, in the right lower extremity. Onset: The symptoms/episode began/occurred last night, at 22:30. Duration: The episode is continuous. Context: the episode(s) was witnessed, by no one, symptoms became apparent on March 15, 2020, at 22:30. occurred at a penitentiary or assisted living facility, occurred while the patient was lying down. The symptoms are alleviated by nothing. The symptoms are aggravated by nothing. Associated signs and symptoms: The patient has no apparent associated signs or symptoms. Patient's baseline: Neuro: alert and fully oriented, Motor: left-sided weakness, left-sided facial droop, Ambulation: unable to walk, is bedridden, Speech: slow, slurred, The patient has a previous history of CVA. The patient has experienced a previous episode, last week. The patient has been recently seen at the [facility] Emergency Department, last week, Transferred to outside hospital. Patient here last week for left side CVA, received thrombolytics and transferred to an outside hospital.. Historical: - Allergies: 01:54 No Known Allergies; em - Home Meds: 01:54 acetaminophen 325 mg Oral tab 1 tab [Active]; Aricept 10 mg Oral tab 1 tab nightly em [Active]; aripiprazole 15 mg Oral tab 1 tab once daily [Active]; aspirin 81 mg Oral chew 1 tab once daily [Active]; atorvastatin 40 mg Oral tab 1 tab once daily [Active]; benztropine 0.5 mg Oral tab 1 tab once daily [Active]; buspirone 5 mg Oral tab 0.5 tab nightly [Active]; buspirone 5 mg Oral tab 1 tab daily [Active]; citalopram 20 mg tab 1 tab nightly [Active]; divalproex 125 mg Oral cpSP 3 caps 3 times per day [Active]; docusate sodium 100 mg Oral tab 1 tab once daily [Active]; fenofibrate 134 mg Oral once daily [Active]; hydrochlorothiazide 12.5 mg Oral tab 1 tab once daily [Active]; Hydrocortisone Topical [Active]; lisinopril 40 mg Oral tab 1 tab once daily [Active]; melatonin 10 mg Oral cap daily [Active]; memantine 10 mg Oral tab 1 tab 2 times per day [Active]; metoprolol tartrate 50 mg Oral tab [Active]; metoprolol tartrate 25 mg Oral tab 1 tab 2 times per day [Active]; Natural Tears (PF) ophthalmic [Active]; Neurontin 100 mg Oral cap 3 times per day [Active]; Norvasc 10 mg Oral tab 1 tab once daily [Active]; oxybutynin chloride 5 mg Oral tab 1 tab 2 times per day [Active]; Pepcid 20 mg Oral tab 1 tab nightly [Active]; senna 8.6 mg Oral tab 2 tabs once daily [Active]; Seroquel 25 mg Oral tab 1 tab 2 times per day [Active]; Vitamin D Oral [Active]; - PMHx: 01:54 CVA; Dementia; Depression; Diabetes - IDDM; GERD; HLD; Hypertension; metabolic em encephalopathy; Schizophrenia; - Immunization history:: Adult Immunizations up to date. - Social history:: Smoking status: Patient denies any tobacco usage or history of. Patient/guardian denies using alcohol, street drugs. ROS: 01:18 Constitutional: Negative for fever, chills, and weight loss, Eyes: Negative for injury, mh7 pain, redness, and discharge, ENT: Negative for injury, pain, and discharge, Neck: Negative for injury, pain, and swelling, Cardiovascular: Negative for chest pain, palpitations, and edema, Respiratory: Negative for shortness of breath, cough, wheezing, and pleuritic chest pain, Abdomen/GI: Negative for abdominal pain, nausea, vomiting, diarrhea, and constipation, Back: Negative for injury and pain, MS/Extremity: Negative for injury and deformity, Skin: Negative for injury, rash, and discoloration, Psych: Negative for depression, anxiety, suicide ideation, homicidal ideation, and hallucinations, Allergy/Immunology: Negative for hives, rash, and allergies, Endocrine: Negative for neck swelling, polydipsia, polyuria, polyphagia, and marked weight changes, Hematologic/Lymphatic: Negative for swollen nodes, abnormal bleeding, and unusual bruising. Exam: 01:18 Radiologist reports: No acute findings mh7 01:18 Eyes: Pupils equal round and reactive to light, extra-ocular motions intact. Lids and lashes normal. Conjunctiva and sclera are non-icteric and not injected. Cornea within normal limits. Periorbital areas with no swelling, redness, or edema. Neck: Trachea midline, no thyromegaly or masses palpated, and no cervical lymphadenopathy. Supple, full range of motion without nuchal rigidity, or vertebral point tenderness. No Meningismus. Chest/axilla: Normal chest wall appearance and motion. Nontender with no deformity. No lesions are appreciated. Cardiovascular: Regular rate and rhythm with a normal S1 and S2. No gallops, murmurs, or rubs. Normal PMI, no JVD. No pulse deficits. Respiratory: Lungs have equal breath sounds bilaterally, clear to auscultation and percussion. No rales, rhonchi or wheezes noted. No increased work of breathing, no retractions or nasal flaring. Abdomen/GI: Soft, non-tender, with normal bowel sounds. No distension or tympany. No guarding or rebound. No evidence of tenderness throughout. Back: No spinal tenderness. No costovertebral tenderness. Full range of motion. Skin: Warm, dry with normal turgor. Normal color with no rashes, no lesions, and no evidence of cellulitis. 01:18 Constitutional: The patient appears in no acute distress, alert, awake. 01:18 Head/face: Noted is left facial droop. 01:18 Eyes: 01:18 Musculoskeletal/extremity: Extremities: noted in the left leg: decreased ROM, noted in the left arm: decreased ROM, ROM: limited active range of motion, in the left arm and left leg, Circulation is intact in all extremities. Pulses: are normal with no appreciated deficits, Perfusion: the patient is normally perfused throughout, Perfusion: the extremity is normally perfused throughout, Sensation intact. Weight bearing: is unable to bear weight. 01:18 Neuro: Orientation: to person, Mentation: lucid, able to follow commands, Memory: appropriate for stated age, Cranial nerves: extraocular movements are intact, facial droop noted on left, with forehead involved. Speech is slowed, slurred, Cerebellar function: unable to test, the patient refuses to cooperate, Motor: strength is 5/5 in the right arm and right leg, Strength is 2/5 in the left leg, Strength is 1/5 in the left arm, Sensation: no obvious gross deficits, Gait: not tested. seizure activity, is not displayed by the patient, Abnormal movements: there are no abnormal movements. Vital Signs: 00:44 BP 150 / 63; Pulse 66; Resp 18; Temp 97.6(O); Pulse Ox 98% on R/A; em 02:00 BP 141 / 67; Pulse 65; Resp 18; Pulse Ox 98% on R/A; jb4 NIH Stroke Scale Scores: 00:55 NIHSS Score: 17 em 00:55 NIHSS Score: 18 [facility] 01:30 NIHSS Score: 15 em MDM: 00:55 Differential diagnosis: CVA, TIA, paralysis, metabolic disorder, drug effects. Data [facility] reviewed: vital signs, nurses notes, EMS record, penitentiary records, old medical records. Physician consultation: Christiano Coughlin MD was contacted at 01:23, regarding patient's condition, and will see patient in inpatient room. ED course: Discussed with Dr. Coughlin, patient not a candidate for thrombolytics since he just had that treatment four days ago.. 02:17 Data interpreted: Pulse oximetry: on room air is 98 %. Interpretation: normal. [facility] Counseling: I had a detailed discussion with the patient and/or guardian regarding: the historical points, exam findings, and any diagnostic results supporting the discharge/admit diagnosis, the presence of at least one elevated blood pressure reading (>120/80) during this emergency department visit, lab results, radiology results, the need for further work-up and treatment in the hospital. 02:[address] [facility] 03/16 01:03 Order name: Basic Metabolic Panel [facility] 03/16 01:03 Order name: CBC with Diff [facility] 03/16 01:03 Order name: Protime (+inr) [facility] 03/16 01:03 Order name: Ptt, Activated [facility] 03/16 01:03 Order name: Troponin (emerg Dept Use Only); Complete Time: 02:29 [facility] 03/16 01:03 Order name: Basic Metabolic Panel; Complete Time: 02:29 EDMS 03/16 01:03 Order name: CBC with Automated Diff; Complete Time: 02:07 EDMS 03/16 01:03 Order name: Protime (+INR); Complete Time: 02:07 EDMS 03/16 01:03 Order name: PTT, Activated Partial Thromb; Complete Time: 02:07 EDMS 03/16 01:37 Order name: Glucose, Ancillary Testing; Complete Time: 02:07 EDMS 03/16 02:35 Order name: CORONAVIRUS EDMS 03/16 03:00 Order name: Comprehensive Metabolic Panel EDMS 03/16 03:00 Order name: Comprehensive Metabolic Panel EDMS 03/16 03:00 Order name: Lipid Profile EDMS 03/16 00:50 Order name: Ct Stroke Brain Wo Cont EDMS 03/16 01:03 Order name: Stroke CXR 1 View 7 03/16 03:00 Order name: Lipid Profile EDMS 03/16 03:01 Order name: Echo with Doppler EDMS 03/16 03:01 Order name: Urinalysis EDMS 03/16 03:01 Order name: CBC with Automated Diff EDMS 03/16 03:01 Order name: CBC with Automated Diff EDMS 03/16 03:02 Order name: Carotid Artery Bilateral EDMS 03/16 04:43 Order name: Urine Dipstick--Ancillary (enter results) 2 03/16 04:45 Order name: SARS-COV-2 RT PCR EDMS 03/16 06:11 Order name: Urine Dipstick-Ancillary EDMS 03/16 07:37 Order name: MRI EDMS 03/16 08:58 Order name: Glucose, Ancillary Testing EDMS 03/16 14:11 Order name: Glucose, Ancillary Testing EDMS 03/16 17:46 Order name: Glucose, Ancillary Testing EDMS 03/16 01:03 Order name: EKG; Complete Time: 01:04 7 03/16 01:03 Order name: Accucheck; Complete Time: 02:03 7 03/16 01:03 Order name: Cardiac monitoring; Complete Time: 02:03 7 03/16 01:03 Order name: EKG - Nurse/Tech; Complete Time: 02:03 7 03/16 01:03 Order name: IV Saline Lock; Complete Time: 02:03 [facility] 03/16 01:03 Order name: Labs collected and sent; Complete Time: 02:03 [facility] 03/16 01:03 Order name: NPO; Complete Time: 02:03 [facility] 03/16 01:03 Order name: O2 Per Protocol; Complete Time: 02:03 [facility] 03/16 01:03 Order name: O2 Sat Monitoring; Complete Time: 02:03 [facility] 03/16 01:03 Order name: Stroke Swallow Screen; Complete Time: 02:03 [facility] 03/16 02:30 Order name: Urine Dipstick-Ancillary (obtain specimen); Complete Time: 04:34 7 03/16 02:58 Order name: Social Service Consult [facility] 03/16 03:00 Order name: CONS Pharmacy Consult [facility] 03/16 03:00 Order name: Physical Therapy Consult [facility] 03/16 03:00 Order name: Heart Healthy [facility] 03/16 03:00 Order name: NPO [facility] 03/16 03:00 Order name: NPO [facility] 03/16 03:00 Order name: Speech Therapy Consult [facility] 03/16 03:01 Order name: NPO [facility] 03/16 13:53 Order name: Diet Ada 1800 Anirudh; Complete Time: 17:11 03/16 14:53 Order name: Diet Heart Healthy; Complete Time: 17:16 jl7 Administered Medications: No medications were administered Point of Care Testing: Blood Glucose: 01:20 Blood Glucose: 96 mg/dL; em Ranges: Critical Glucose Levels:Adult <50 mg/dl or >400 mg/dl <40 mg/dl or >180 mg/dl Disposition: 03/16/20 02:19 Hospitalization ordered by Maico El for Observation. Preliminary diagnosis are Altered Mental Status, Weakness. - Bed requested for [facility] ER HOLD. - Status is Observation. jl7 - Condition is Stable. - Problem is an ongoing problem. - Symptoms have improved. NIH Stroke Scale - NIH Stroke Score Date: 03/16/2020 Time: 00:55 Total Score = 17 1a. Level of Consciousness (LOC) - 0(Alert) 1b. Level of Consciousness (LOC) (Year \T\ Age) - 1(One) 1c. LOC Commands (Open \T\ Closes Eyes/[employer]) - 0(Both) 2. Best Gaze (Lateral Gaze Paresis) - 0(Normal) 3. Visual Field Loss - 1(Partial hemianopia) 4. Facial Palsy - 2(Partial paralysis) 5a. Left Arm: Motor (10-second hold) - 4(No movement) 5b. Right Arm: Motor (10-second hold) - 0(No drift) 6a. Left Leg: Motor (5-second hold - always test supine) - 3(No effort against gravity) 6b. Right Leg: Motor (5-second hold - always test supine) - 3(No effort against gravity) 7. Limb Ataxia (finger/nose \T\ heel/levy - test with eyes open) - 1(Present in one limb) 8. Sensory Loss (pinprick arms/legs/face) - 0(Normal) 9. Best Language: Aphasia (description/naming/reading) - 1(Mild to moderate aphasia) 10. Dysarthria (speech clarity - read or repeat words) - 1(Mild to Moderate) 11. Extinction and Inattention (visual/tactile/auditory/spatial/personal) - 0(No abnormality) Initials: NIH Stroke Scale - NIH Stroke Score Date: 03/16/2020 Time: 00:55 Total Score = 18 1a. Level of Consciousness (LOC) - 0(Alert) 1b. Level of Consciousness (LOC) (Year \T\ Age) - 1(One) 1c. LOC Commands (Open \T\ Closes Eyes/Production [employer]) - 0(Both) 2. Best Gaze (Lateral Gaze Paresis) - 0(Normal) 3. Visual Field Loss - 1(Partial hemianopia) 4. Facial Palsy - 2(Partial paralysis) 5a. Left Arm: Motor (10-second hold) - 4(No movement) 5b. Right Arm: Motor (10-second hold) - 0(No drift) 6a. Left Leg: Motor (5-second hold - always test supine) - 4(No movement) 6b. Right Leg: Motor (5-second hold - always test supine) - 3(No effort against gravity) 7. Limb Ataxia (finger/nose \T\ heel/levy - test with eyes open) - 1(Present in one limb) 8. Sensory Loss (pinprick arms/legs/face) - 0(Normal) 9. Best Language: Aphasia (description/naming/reading) - 1(Mild to moderate aphasia) 10. Dysarthria (speech clarity - read or repeat words) - 1(Mild to Moderate) 11. Extinction and Inattention (visual/tactile/auditory/spatial/personal) - 0(No abnormality) Initials: [facility] NIH Stroke Scale - NIH Stroke Score Date: 03/16/2020 Time: 01:30 Total Score = 15 1a. Level of Consciousness (LOC) - 0(Alert) 1b. Level of Consciousness (LOC) (Year \T\ Age) - 0(Both) 1c. LOC Commands (Open \T\ Closes Eyes/Production [employer]) - 0(Both) 2. Best Gaze (Lateral Gaze Paresis) - 0(Normal) 3. Visual Field Loss - 1(Partial hemianopia) 4. Facial Palsy - 2(Partial paralysis) 5a. Left Arm: Motor (10-second hold) - 4(No movement) 5b. Right Arm: Motor (10-second hold) - 0(No drift) 6a. Left Leg: Motor (5-second hold - always test supine) - 3(No effort against gravity) 6b. Right Leg: Motor (5-second hold - always test supine) - 2(Drift, some effort against gravity) 7. Limb Ataxia (finger/nose \T\ heel/levy - test with eyes open) - 1(Present in one limb) 8. Sensory Loss (pinprick arms/legs/face) - 0(Normal) 9. Best Language: Aphasia (description/naming/reading) - 1(Mild to moderate aphasia) 10. Dysarthria (speech clarity - read or repeat words) - 1(Mild to Moderate) 11. Extinction and Inattention (visual/tactile/auditory/spatial/personal) - 0(No abnormality) Initials: em Signatures: Dispatcher [employer] EDMA Nancy Pendleton RN RN mw Munoz, Edgar RN RN Pierce Johnson RN RN jl7 Eddie Yang MD MD 7 Corrections: (The following items were deleted from the chart) 01:06 01:04 CT-STROKE BRAIN W/O CONTRAST+[id number] ordered. [facility] EDMA 02:53 02:19 Hospitalization Ordered by Maico El MD for Observation. Preliminary diagnosis is Altered Mental Status; Weakness. Bed requested for Telemetry/MedSurg (observation). Status is Observation. Condition is Stable. Problem is an ongoing problem. Symptoms have improved. mh7 19:04 02:53 03/16/2020 02:19 Hospitalization Ordered by Maico El MD for jl7 Observation. Preliminary diagnosis is Altered Mental Status; Weakness. Bed requested for [facility] ER HOLD. Status is Observation. Condition is Stable. Problem is an ongoing problem. Symptoms have improved. mw
--- NOTE | 2020-03-16 02:20 | ER ---
Nurse's Notes [facility] Name: Nafisa Paulson Age: 69 yrs Sex: Male : 1950 Arrival Date: 03/16/2020 Time: 00:42 Bed 6 Private MD: Diagnosis: Altered Mental Status;Weakness Presentation: 03/16 00:44 Chief complaint: EMS states: Pt's nurse reports that the patient is not at his normal. em He is normally A\T\O x3 with a GCS of 14. at 2345 they found him completely flacid with one eye looking forward and another looking into the corner of the room. The pt can normally move both his legs and now he could not and cannot move his left arm at all. Pt has a history of a stroke and was recently here for brain swelling on the . 00:44 Method Of Arrival: EMS: [facility] em 00:44 Coronavirus screen: Client denies travel out of the [place] in the last 14 days. At this em time, the client does not indicate any symptoms associated with coronavirus-19. Ebola Screen: No symptoms or risks identified at this time. An acute neurological deficit is present. The patients blood glucose was checked before arriving to the hospital and was found to be normal. Initial Sepsis Screen: Does the patient meet any 2 criteria? No. Patient's initial sepsis screen is negative. Does the patient have a suspected source of infection? No. Patient's initial sepsis screen is negative. Risk Assessment: Do you want to hurt yourself or someone else? Patient reports no desire to harm self or others. Onset of symptoms was March 15, 2020. Care prior to arrival: Glucose check: 130. 00:44 Acuity: JAVIER 2 em Triage Assessment: 00:44 The onset of the patients symptoms was March 15, 2020 at 22:45. General: Appears in em no apparent distress. comfortable, Behavior is calm, cooperative, PT TAKEN TO CT AT 0035. Pain: Denies pain. EENT: No signs and/or symptoms were reported regarding the EENT system. Neuro: Level of Consciousness is awake, alert, obeys commands, Oriented to person, time, Color Buffer are weak on left Weakness in left hand(s) arm(s) leg(s) foot/feet Speech is slurred, with expressive aphasia noted, Facial droop on left, Pupils are PERRLA, Intact. Cardiovascular: Patient's skin is warm and dry. Rhythm is sinus rhythm. Respiratory: Airway is patent Respiratory effort is even, unlabored, Respiratory pattern is regular, symmetrical. GI: No signs and/or symptoms were reported involving the gastrointestinal system. : Cali in place to gravity drainage. Derm: Skin is intact, Skin is pink, warm \T\ dry. Musculoskeletal: Circulation, motion, and sensation intact. Stroke Activation: Symptom onset < 3 hours Physician: Stroke Attending; Name: ; Notified At: 00:44; Arrived At: Physician: Chief Stroke Resident; Name: ; Notified At: 00:44; Arrived At: Physician: Stroke Resident; Name: ; Notified At: 00:44; Arrived At: Physician: ED Attending; Name: ALFREDO; Notified At: 00:44; Arrived At: 00:44 Physician: ED Resident; Name: ; Notified At: 00:44; Arrived At: Historical: - Allergies: 01:54 No Known Allergies; em - Home Meds: 01:54 acetaminophen 325 mg Oral tab 1 tab [Active]; Aricept 10 mg Oral tab 1 tab nightly em [Active]; aripiprazole 15 mg Oral tab 1 tab once daily [Active]; aspirin 81 mg Oral chew 1 tab once daily [Active]; atorvastatin 40 mg Oral tab 1 tab once daily [Active]; benztropine 0.5 mg Oral tab 1 tab once daily [Active]; buspirone 5 mg Oral tab 0.5 tab nightly [Active]; buspirone 5 mg Oral tab 1 tab daily [Active]; citalopram 20 mg tab 1 tab nightly [Active]; divalproex 125 mg Oral cpSP 3 caps 3 times per day [Active]; docusate sodium 100 mg Oral tab 1 tab once daily [Active]; fenofibrate 134 mg Oral once daily [Active]; hydrochlorothiazide 12.5 mg Oral tab 1 tab once daily [Active]; Hydrocortisone Topical [Active]; lisinopril 40 mg Oral tab 1 tab once daily [Active]; melatonin 10 mg Oral cap daily [Active]; memantine 10 mg Oral tab 1 tab 2 times per day [Active]; metoprolol tartrate 50 mg Oral tab [Active]; metoprolol tartrate 25 mg Oral tab 1 tab 2 times per day [Active]; Natural Tears (PF) ophthalmic [Active]; Neurontin 100 mg Oral cap 3 times per day [Active]; Norvasc 10 mg Oral tab 1 tab once daily [Active]; oxybutynin chloride 5 mg Oral tab 1 tab 2 times per day [Active]; Pepcid 20 mg Oral tab 1 tab nightly [Active]; senna 8.6 mg Oral tab 2 tabs once daily [Active]; Seroquel 25 mg Oral tab 1 tab 2 times per day [Active]; Vitamin D Oral [Active]; - PMHx: 01:54 CVA; Dementia; Depression; Diabetes - IDDM; GERD; HLD; Hypertension; metabolic em encephalopathy; Schizophrenia; - Immunization history:: Adult Immunizations up to date. - Social history:: Smoking status: Patient denies any tobacco usage or history of. Patient/guardian denies using alcohol, street drugs. Screenin:20 Abuse screen: Denies threats or abuse. Nutritional screening: No deficits noted. em Tuberculosis screening: No symptoms or risk factors identified. Fall Risk IV access (20 points). Gait- Impaired (20 pts.). Mental Status- Overestimates/Forgets Limitations (15 pts.). Total Esqueda Fall Scale indicates High Risk Score (45 or more points). Fall prevention measures have been instituted. Side Rails Up X 2 Placed Close to Nursing Station Frequent Obs/Assessments Occuring Family Present and informed to notify staff if the need to leave the bedside As available patient and family educated on Fall Prevention Program and Strategies. Assessment: 00:55 The patient has not been NPO before screening. The patient exhibits slurred or garbled jb4 speech. The patient is exhibiting difficulty speaking. The patient does not exhibit difficulty understanding words. The patient is able to swallow own secretions with no drooling or need for suction. The patient failed the bedside swallow screening. The patient will be kept NPO until cleared by Speech Therapy or Physician. Provider notified of bedside swallow screening results: Eddie Yang MD. 00:55 VAN Scoring: Arm Drift: Minor drift em 01:45 Reassessment: PT remains A\T\Ox2. respirations are even and unlabored. No s/s of pain or em distress noted. Pt's sister is at the bedside reporting that the patient appears to be at his normal other than being confused and not knowing who she is. 02:45 Reassessment: Patient appears in no apparent distress at this time. No changes from jb4 previously documented assessment. Patient and/or family updated on plan of care and expected duration. Pain level reassessed. 07:00 failed swallow screen failed swallow screen at 0055. jl7 Vital Signs: 00:44 BP 150 / 63; Pulse 66; Resp 18; Temp 97.6(O); Pulse Ox 98% on R/A; em 02:00 BP 141 / 67; Pulse 65; Resp 18; Pulse Ox 98% on R/A; jb4 NIH Stroke Scale Scores: 00:55 NIHSS Score: 17 em 00:55 NIHSS Score: 18 7 01:30 NIHSS Score: 15 em ED Course: 00:42 Patient arrived in ED. cf2 00:44 Patient has correct armband on for positive identification. Bed in low position. Call em light in reach. Side rails up X 1. personnel monitor on. Pulse ox on. NIBP on. 00:52 Eddie Yang MD is Attending Physician. 7 00:57 Ct Stroke Brain Wo Cont In Process Unspecified. EDMS 01:02 Alton Saleh, RN is Primary Nurse. jb4 01:18 Stroke CXR 1 View In Process Unspecified. EDMS 01:20 Arm band placed on left wrist. em 01:20 Initial lab(s) drawn, by ak, sent to lab. Inserted saline lock: 18 gauge in right em antecubital area, using aseptic technique. Blood collected. 01:48 Triage completed. em 02:19 Maico El MD is Hospitalizing Provider. 7 02:55 No provider procedures requiring assistance completed. Patient admitted, IV remains in jb4 place. 07:38 Primary Nurse role handed off by Alton Saleh, CLARISSE jl7 07:38 Pierce Johnson RN is Primary Nurse. jl7 07:51 Report received from CLARISSE Lu. jl7 Administered Medications: No medications were administered Point of Care Testing: Blood Glucose: 01:20 Blood Glucose: 96 mg/dL; em Ranges: Outcome: 02:19 Decision to Hospitalize by Provider. mh7 02:55 Admitted to ER Hold. Please see [facility] for further documentation. jb4 02:55 Condition: stable 02:55 Discharge instructions given to family, Instructed on the need for admit, Demonstrated understanding of instructions. 19:04 Patient left the ED. jl7 NIH Stroke Scale - NIH Stroke Score Date: 03/16/2020 Time: 00:55 Total Score = 17 1a. Level of Consciousness (LOC) - 0(Alert) 1b. Level of Consciousness (LOC) (Year \T\ Age) - 1(One) 1c. LOC Commands (Open \T\ Closes Eyes/Office Lead) - 0(Both) 2. Best Gaze (Lateral Gaze Paresis) - 0(Normal) 3. Visual Field Loss - 1(Partial hemianopia) 4. Facial Palsy - 2(Partial paralysis) 5a. Left Arm: Motor (10-second hold) - 4(No movement) 5b. Right Arm: Motor (10-second hold) - 0(No drift) 6a. Left Leg: Motor (5-second hold - always test supine) - 3(No effort against gravity) 6b. Right Leg: Motor (5-second hold - always test supine) - 3(No effort against gravity) 7. Limb Ataxia (finger/nose \T\ heel/levy - test with eyes open) - 1(Present in one limb) 8. Sensory Loss (pinprick arms/legs/face) - 0(Normal) 9. Best Language: Aphasia (description/naming/reading) - 1(Mild to moderate aphasia) 10. Dysarthria (speech clarity - read or repeat words) - 1(Mild to Moderate) 11. Extinction and Inattention (visual/tactile/auditory/spatial/personal) - 0(No abnormality) Initials: NIH Stroke Scale - NIH Stroke Score Date: 03/16/2020 Time: 00:55 Total Score = 18 1a. Level of Consciousness (LOC) - 0(Alert) 1b. Level of Consciousness (LOC) (Year \T\ Age) - 1(One) 1c. LOC Commands (Open \T\ Closes Eyes/Office Lead) - 0(Both) 2. Best Gaze (Lateral Gaze Paresis) - 0(Normal) 3. Visual Field Loss - 1(Partial hemianopia) 4. Facial Palsy - 2(Partial paralysis) 5a. Left Arm: Motor (10-second hold) - 4(No movement) 5b. Right Arm: Motor (10-second hold) - 0(No drift) 6a. Left Leg: Motor (5-second hold - always test supine) - 4(No movement) 6b. Right Leg: Motor (5-second hold - always test supine) - 3(No effort against gravity) 7. Limb Ataxia (finger/nose \T\ heel/levy - test with eyes open) - 1(Present in one limb) 8. Sensory Loss (pinprick arms/legs/face) - 0(Normal) 9. Best Language: Aphasia (description/naming/reading) - 1(Mild to moderate aphasia) 10. Dysarthria (speech clarity - read or repeat words) - 1(Mild to Moderate) 11. Extinction and Inattention (visual/tactile/auditory/spatial/personal) - 0(No abnormality) Initials: [facility] NIH Stroke Scale - NIH Stroke Score Date: 03/16/2020 Time: 01:30 Total Score = 15 1a. Level of Consciousness (LOC) - 0(Alert) 1b. Level of Consciousness (LOC) (Year \T\ Age) - 0(Both) 1c. LOC Commands (Open \T\ Closes Eyes/Office Lead) - 0(Both) 2. Best Gaze (Lateral Gaze Paresis) - 0(Normal) 3. Visual Field Loss - 1(Partial hemianopia) 4. Facial Palsy - 2(Partial paralysis) 5a. Left Arm: Motor (10-second hold) - 4(No movement) 5b. Right Arm: Motor (10-second hold) - 0(No drift) 6a. Left Leg: Motor (5-second hold - always test supine) - 3(No effort against gravity) 6b. Right Leg: Motor (5-second hold - always test supine) - 2(Drift, some effort against gravity) 7. Limb Ataxia (finger/nose \T\ heel/levy - test with eyes open) - 1(Present in one limb) 8. Sensory Loss (pinprick arms/legs/face) - 0(Normal) 9. Best Language: Aphasia (description/naming/reading) - 1(Mild to moderate aphasia) 10. Dysarthria (speech clarity - read or repeat words) - 1(Mild to Moderate) 11. Extinction and Inattention (visual/tactile/auditory/spatial/personal) - 0(No abnormality) Initials: em Signatures: Dispatcher [employer] Glen Wong RN RN em Alton Saleh RN RN jb4 Pierce Johnson RN RN jl7 Garland Villar 2 Eddie Yang MD MD mh7 Corrections: (The following items were deleted from the chart) 01:42 00:55 NIHSS Score: 18 jb4 em
[2020-03-16] MEDS ORDERED: ACETAMINOPHEN 500 MG TAB PO PRN (02:54)
[2020-03-16] MEDS ORDERED: ONDANSETRON 4 MG/2 ML VIAL IV PRN (02:54)
[2020-03-16] MEDS ORDERED: MORPHINE 2 MG/ML SYR IV PRN (02:54)
--- NOTE | 2020-03-16 02:54 | P.HP ---
Certification for Inpatient Patient admitted to: Inpatient With expected LOS: >2 Midnights Patient will require the following post-hospital care: Long-Term Practitioner: I am a practitioner with admitting privileges, knowledge of patient current condition, hospital course, and medical plan of care. Services: Services provided to patient in accordance with Admission requirements found in Title 42 Section 412.3 of the Code of Federal Regulations Patient History Date of Service: 03/16/20 Reason for admission: Right Side Weakness History of Present Illness: 69-year-old male with past medical history of CVA, dementia, depression, diabetes, GERD, hyperlipidemia, hypertension, schizophrenia who came from assisted with altered mental status and disoriented to place and weakness on the right upper extremity and lower extremity started this night. Patient was recently been seen in the ER and had left-sided CVA status post thrombolytics and was transferred for higher level of care for further management. Patient was doing okay when all of a sudden he developed weakness of right upper extremity and lower extremity associated with confusion. Patient denies any chest pain or shortness of breath. No palpitations no fever or chills Patient was assessed in the ER and was found to have left hemiparesis possibly residual weakness from last stroke and has minimal weakness in the right side. The patient is being admitted for further management Allergies No Known Allergies Allergy (Verified 09/09/19 01:55) Home medications list reviewed: Yes Home Medications: ARIPiprazole [Aripiprazole] 1 tab PO DAILY 09/09/19 Acetaminophen [Tylenol*] 650 mg PO BID 09/09/19 Amlodipine [Norvasc*] 10 mg PO DAILY 09/09/19 Ascorbic Acid [Vitamin C*] 1 tab PO DAILY 09/09/19 Aspirin [Aspirin EC 81 MG] 1 tab PO DAILY 09/09/19 Atorvastatin Calcium 40 mg PO BEDTIME 09/09/19 Benztropine Mesylate 1 tab PO DAILY 09/09/19 Buspirone HCl [Buspar*] 2.5 mg PO BEDTIME 09/09/19 Buspirone HCl [Buspar*] 5 mg PO DAILY 09/09/19 Cholecalciferol (Vitamin D3) [Vitamin D3] 1 tab PO DAILY 09/09/19 Citalopram [Celexa*] 20 mg PO BEDTIME 09/09/19 Dextran 70/Hypromellose/Pf [Genteal Tears 0.1%-0.3% Drop] 1 drop EACH EYE BID 09/09/19 Divalproex [Depakote Sprinkle*] 3 cap PO TID 09/09/19 Docusate Sodium 1 tab PO DAILY 09/09/19 Donepezil [Aricept*] 10 mg PO BEDTIME 09/09/19 Famotidine [Pepcid*] 20 mg PO BEDTIME 09/09/19 Fenofibrate,Micronized [Fenofibrate] 134 mg PO DAILY 09/09/19 Fluticasone Propionate 1 spray IH BID 09/09/19 Gabapentin [Neurontin*] 100 mg PO TID 09/09/19 Lisinopril [Zestril] 40 mg PO DAILY 09/09/19 Loratadine [Claritin*] 1 tab PO DAILY 09/09/19 Loratadine [Claritin*] 1 tab PO DAILY 09/09/19 Melatonin 10 mg PO BEDTIME 09/09/19 Memantine HCl [Namenda*] 1 tab PO BID 09/09/19 Metoprolol Tartrate [Lopressor*] 1 tab PO BID 09/09/19 Multivitamin with Minerals [Multivitamins with Minerals] 1 tab PO DAILY 09/09/19 Oxybutynin Chloride 5 mg PO BID 09/09/19 Quetiapine [Seroquel*] 1 tab PO BID 09/09/19 Sennosides [Senna] 2 tab PO BEDTIME 09/09/19 Zinc Sulfate [Zinc Sulfate*] 1 cap PO DAILY 09/09/19 Cefdinir [Omnicef] 300 mg PO BID #14 capsule 09/11/19 - Past Medical/Surgical History Diabetic: Yes Past Medical History: Reviewed- Non-Contributory -: Hypertension -: CVA -: Dementia -: Schizophrenia -: Type 2 DM Past Surgical History: Reviewed- Non-Contributory - Social History Smoking Status: Never smoker Alcohol use: No CD- Drugs: No Review of Systems 10-point ROS is otherwise unremarkable Physical Examination - Vital Signs Temperature: 98.2 F Blood Pressure: 148/86 Pulse: 82 Respirations: 18 - Physical Exam General: Alert, Mild distress HEENT: Atraumatic, Normocephalic Neck: Supple Respiratory: Clear to auscultation bilaterally, Normal air movement Cardiovascular: No edema, Regular rate/rhythm, Normal S1 S2 Capillary refill: <2 Seconds Gastrointestinal: Soft and benign, W/out hepatosplenomegaly Musculoskeletal: No clubbing, No swelling Integumentary: No rashes Neurological: Other (Left hemiparesis +), Abnormal gait, Abnormal strength Lymphatics: No axilla or inguinal lymphadenopathy - Studies Laboratory Data (last 24 hrs) 03/16/20 01:20: PT 11.4, INR 0.97, APTT 27.8 03/16/20 01:20: WBC 9.40 D, Hgb 10.9 L, Hct 32.6 L, Plt Count 107 L D 03/16/20 01:20: Sodium 134 L, Potassium 3.9, BUN 18, Creatinine 0.90, Glucose 93 Assessment and Plan - Problems (Diagnosis) (1) CVA (cerebral vascular accident) Current Visit: Yes Status: Acute (2) Left hemiparesis Current Visit: Yes Status: Acute (3) Dementia with behavioral disturbance Current Visit: No Status: Acute (4) Type 2 diabetes mellitus Current Visit: No Status: Acute - Plan CVA With right side weakness possibly TIA Left hemiparesis possibly from a recent CVA status post thrombolytics Diabetes Hypertension Hyperlipidemia Schizophrenia Plan Monitor under telemetry stroke workup Will get a PTOT evaluation and ST evaluation as well start on aspirin and statin Neurology consult insulin sliding scale Monitor neuro vital signs closely Will get a carotid Doppler and echocardiogram Will also get an MRI of the brain Antihypertensives titrated Lipid panel and A1c GI/DVT prophylaxis Advanced directive DNR DNI - Advance Directives Does patient have a Living Will: No Does patient have a Durable POA for Healthcare: No Time Spent Managing Pts Care (In Minutes): 42
[2020-03-16] MEDS ORDERED: NA CHLORIDE 0.9% 1,000 ML IV SCH (03:00)
[2020-03-16] MEDS ORDERED: GLUCAGON 1 MG/VIAL IM PRN (03:12)
[2020-03-16] MEDS ORDERED: D50W 25 GM/50 ML SYRINGE IV PRN (03:12)
[2020-03-16 04:40] VITALS: O2SAT 96
[2020-03-16] MEDS ORDERED: NA CHLORIDE 0.9% 1,000 ML ONE (04:54)
[2020-03-16 05:14] VITALS: BMI 25.1
[2020-03-16 06:11] LABS: Urine Blood 3+ (NEG); Urine Glucose NEGATIVE (NEG); Urine Protein NEGATIVE (NEG); Urine Specific Gravity >1.030 (1.005-1.030)
--- NOTE | 2020-03-16 06:46 | RAD REPORT ---
EXAM DESCRIPTION: Jazmyn Single View2 1:16 am CLINICAL HISTORY: Alteration of consciousness COMPARISON: March 12, 2020 FINDINGS: Mild bilateral pulmonary opacities may indicate mild pulmonary edema. Heart is mildly enla rged
[2020-03-16] MEDS: INSULIN -REGULAR HUMAN 50 UNIT/0.5 ML ML SQ SCH ×2 (07:30→11:30)
--- NOTE | 2020-03-16 07:36 | RAD REPORT ---
EXAM DESCRIPTION: MRI - Brain Wo Cont - 03/16/2020 7:17 am CLINICAL HISTORY: CVA COMPARISON: March 16, [address] TECHNIQUE: Axial, sagittal, and coronal magnetic images of the brain were obtained. Contrast was not requested FINDINGS: Mild signal within periventricular, deep subcortical white matter likely ischemic changes secondary to small vessel disease. Area abnormal signal within the medulla could be secondary to ischemic changes or old CVA. Cerebral a nd cerebellar atrophy is present. Diffusion-weighted/ADC mapping does not reveal evidence of acute infarction. The ventricles are normal caliber. An extra-axial fluid collection is not present Fluid within the sinuses/mastoids is not noted IMPRESSION: No acute abnormality is displayed
--- NOTE | 2020-03-16 08:15 | RAD REPORT ---
EXAM DESCRIPTION: USCarotid Artery Bilateral03/16/2020 8:00 am CLINICAL HISTORY: CVA COMPARISON: None FINDINGS: The velocity of the right internal carotid artery equals 191 cm/sec. The right ICA/CCA rat io 2.1 The velocity of the left internal carotid artery equals 91 cm/sec. The left ICA/CCA ratio 1.4 Moderate calcified plaque right internal carotid artery. Mild plaque left internal carotid artery Nonvisualization of the vertebral arteries secondary to difficulty with patient cooperation. IMPRESSION: Moderate plaque within the right internal carotid artery NASCET criteria used. Mild 0-49% stenosis Moderate 50-69% stenosis Severe 70-99% stenosis
--- NOTE | 2020-03-16 08:18 | EKG ---
Test Date: 2020-03-16 Test Time: 01:22:07 Detention Deputy: LUCAS MEASUREMENT RESULTS: Intervals: Rate: 69 VT: 170 QRSD: 84 QT: 386 QTc: 413 [place]: P: 13 VT: 170 QRS: -26 T: 28 INTERPRETIVE STATEMENTS: Sinus rhythm with occasional and consecutive premature ventricular complexes Nonspecific ST and T wave abnormality Abnormal ECG Compared to ECG 03/12/2020 10:34:28 Ventricular premature complex(es) now present Sinus bradycardia no longer present Left ventricular hypertrophy no longer present ST (T wave) deviation still present Electronically Signed On 03-16-20 08:17:32 WELL DIGGER by Ammon Loaiza
[2020-03-16] MEDS ORDERED: ZINC SULFATE 220 MG CAP PO SCH (09:00)
[2020-03-16] MEDS ORDERED: QUETIAPINE 25 MG TAB PO SCH (09:00)
[2020-03-16] MEDS ORDERED: MEMANTINE HCL 10 MG TABLET PO SCH (09:00)
[2020-03-16] MEDS ORDERED: METOPROLOL TAR 25 MG TAB PO SCH (09:00)
[2020-03-16] MEDS ORDERED: OXYBUTYNIN CHLORIDE 5 MG TAB PO SCH (09:00)
[2020-03-16] MEDS ORDERED: BENZTROPINE 1 MG TAB PO SCH (09:00)
[2020-03-16] MEDS ORDERED: ENOXAPARIN 40 MG/0.4 ML SQ SCH (09:00)
[2020-03-16] MEDS ORDERED: ASCORBIC ACID 500 MG TABLET PO SCH (09:00)
[2020-03-16] MEDS ORDERED: ARIPiprazole 5 MG TAB PO SCH (09:00)
[2020-03-16] MEDS ORDERED: ASPIRIN EC 81 MG TAB PO SCH (09:00)
[2020-03-16] MEDS ORDERED: AZITHROMYCIN 250 MG TAB ONE (09:15)
--- NOTE | 2020-03-16 11:10 | RAD REPORT ---
EXAM DESCRIPTION: CT - Ct Stroke Brain Wo Cont - 03/16/2020 4:51 am CLINICAL HISTORY: AMS TECHNIQUE: Contiguous axial CT images obtained through the brain without IV contrast. Coronal and sa gittal reformatted images were provided. This exam was performed according to our departmental dose-optimization program, which includes autom ated exposure control, adjustment of the mA and/or kV according to patient size and/or use of iterati ve reconstruction technique. COMPARISON: 03/12/2020 FINDINGS: Brain: There is mild to moderate cerebral atrophy. Mild bilateral periventricular and subc ortical white matter hypodensity which is nonspecific and can be seen in the clinical setting of negative assembler theron microvascular angiopathy. No focal mass effect. Mcginnis-white matter differentiation is within marion l limits. No hemorrhage. Ventricles: No ventriculomegaly or midline shift. Extra-axial spaces: No extra-axial collection or hemorrhage. Paranasal sinuses and mastoid air cells: Well-aerated Vessels: Atherosclerotic disease of the internal carotid arteries bilaterally and left vertebral varun ry. Bones: Unremarkable Soft tissues: Unremarkable IMPRESSION: 1. No acute hemorrhage, focal mass or large territory infarction. 2. Other findings as above. CODE STROKE PROTOCOL CONFERENCE CALL: The findings were verbally discussed via telephone conference with Dr. Eddie Yang on 03/16/2020 1:06 AM OPERATIONS AND MAINTENANCE TECHNICAN. The results were acknowledged and understood. Electronically signed by: Sarbjit Granados MD 03/16/2020 1:07 AM OPERATIONS AND MAINTENANCE TECHNICAN Due to temporary technical issues with the PACS/Fluency reporting system, reports are being signed by the in house radiologist without review as a courtesy to ensure prompt reporting. The interpreting r adiologist is fully responsible for the content of the report.
--- NOTE | 2020-03-16 13:49 | ECHO ---
HEIGHT: 6 ft 2 in WEIGHT: 196 lb 0 oz DATE OF STUDY: 03/16/[address]: Antwan El DO 2-DIMENSIONAL: YES M.MODE: YES DOPPLER: YES COLOR FLOW: YES TDS: PORTABLE: DEFINITY: BUBBLE STUDY: DIAGNOSIS: STROKE CARDIAC HISTORY: CATHERIZATION: NO SURGERY: NO PROSTHETIC VALVE:NO PACEMAKER: NO MEASUREMENTS (cm) DIASTOLIC (NORMALS) SYSTOLIC (NORMALS) IVSd 1.3 (0.6-1.2) LA Diam 3.9 (1.9-4.0) LVEF 55-60% LVIDd 5.5 (3.5-5.7) LVIDs 3.3 (2.0-3.5) %FS 40% LVPWd 1.3 (0.6-1.2) Ao Diam 4.2 (2.0-3.7) 2 DIMENSIONAL ASSESSMENT: RIGHT ATRIUM: NORMAL LEFT ATRIUM: NORMAL RIGHT VENTRICLE: NORMAL LEFT VENTRICLE: MILD LEFT VENTRICULAR HYPERTROPHY TRICUSPID VALVE: MILD TRICUPID REGURGITATION MITRAL VALVE: NORMAL PULMONIC VALVE: NORMAL AORTIC VALVE: NORMAL PERICARDIAL EFFUSION: NONE AORTIC ROOT: NORMAL LEFT VENTRICULAR WALL MOTION: NORMAL DOPPLER/COLOR FLOW: SEE BELOW COMMENTS: NORMAL LEFT VENTRICULAR EJECTION FRACTION 55-60% WITH NORMAL WALL MOTION. MILD LEFT VENTRICULAR HYPERTROPHY. MILD TRICUSPID REGURGITATION. MILDLY DILATED AORTIC ROOT AT 4.2 CENTIMETERS SQUARED. TECHNOLOGIST: FARIBA LIND
[2020-03-16] MEDS: GABAPENTIN 100 MG CAP PO SCH ×2 (14:00→14:23)
[2020-03-16] MEDS: DIVALPROEX NA 125 MG CAP PO SCH ×2 (14:00→14:25)
[2020-03-16] MEDS ORDERED: ZINC SULFATE 220 MG CAP ONE (14:24)
[2020-03-16] MEDS ORDERED: METOPROLOL TAR 25 MG TAB ONE (14:24)
[2020-03-16] MEDS ORDERED: ASPIRIN 81 MG CHEWABLE TABLET ONE (14:24)
[2020-03-16] MEDS ORDERED: ASCORBIC ACID 500 MG TABLET ONE (14:24)
[2020-03-16] MEDS ORDERED: ARIPiprazole 5 MG TAB ONE (14:25)
[2020-03-16] MEDS ORDERED: ENOXAPARIN 40 MG/0.4 ML SQ ONE (14:25)
[2020-03-16] MEDS ORDERED: FENOFIBRATE 160 MG TAB PO SCH (15:00)
--- NOTE | 2020-03-16 15:39 | P.DS ---
Admission Date: 03/16/20 Discharge Date: 03/16/20 Disposition: TRANSFER TO LONGTERM Discharge Condition: FAIR Reason for Admission: Right Side Weakness - Problems (1) History of CVA (cerebrovascular accident) Current Visit: Yes Status: Acute (2) Left hemiparesis Current Visit: Yes Status: Acute (3) Dementia with behavioral disturbance Current Visit: No Status: Acute (4) Type 2 diabetes mellitus Current Visit: No Status: Acute Brief History of Present Illness: 69-year-old [facility] resident with a history of CVA left-sided hemiparesis about 1 year ago was brought to the emergency department because right arm weakness of sudden onset and altered mental status. Patient was in the emergency department about 4 days ago, diagnosed with acute CVA, given t-PA and transferred to [facility] for further management. He was brought to the emergency department last night for suspected right arm weakness. CT head was negative for acute CVA. UA no evidence of UTI. Patient was hospitalized for further management. Hospital Course: Patient placed under observation. MRI of the brain done did not show any acute CVA. Patient has been on aspirin. Case discussed with Neurology Dr. Coughlin who recommended aspirin and Plavix and to continue physical therapy. His Lipitor dose was increased from 40 mg to 80 mg. He passed swallow evaluation and tolerated feeding. Patient might have suffered a TIA. Acute CVA has been ruled out. He is discharged to continue physical therapy at the [facility]. He is prescribed Plavix for 1 month. All home medications resumed on discharge. Vital Signs/Physical Exam: Temp Pulse Resp BP Pulse Ox 98.0 F 54 17 164/70 H 97 03/16/20 08:00 03/16/20 14:22 03/16/20 08:00 03/16/20 14:22 03/16/20 08:00 General: In no apparent distress, Other (Awake) HEENT: Mucous membr. moist/pink Neck: JVD not distended Respiratory: Clear to auscultation bilaterally, Normal air movement Cardiovascular: No edema, Regular rate/rhythm, Normal S1 S2 Gastrointestinal: Soft and benign, Non-distended, No tenderness Musculoskeletal: No swelling Integumentary: No rashes Neurological: Other (Left facial droop, left hemipares. Motor 4/5 in RUE, 5/5 in RLE. 2/5 in LUE and LLE.) Laboratory Data at Discharge: WBC 9.40 K/uL (4.3-10.9) D 03/16/20 01:20 Hgb 10.9 g/dL (13.6-17.9) L 03/16/20 01:20 Hct 32.6 % (39.6-49.0) L 03/16/20 01:20 Plt Count 107 K/uL (152-406) L D 03/16/20 01:20 PT 11.4 SECONDS (9.5-12.5) 03/16/20 01:20 INR 0.97 03/16/20 01:20 APTT 27.8 SECONDS (24.3-36.9) 03/16/20 01:20 Sodium 134 mmol/L (136-145) L 03/16/20 01:20 Potassium 3.9 mmol/L (3.5-5.1) 03/16/20 01:20 BUN 18 mg/dL (7-18) 03/16/20 01:20 Creatinine 0.90 mg/dL (0.55-1.3) 03/16/20 01:20 Glucose 93 mg/dL (74-106) 03/16/20 01:20 Home Medications: ARIPiprazole [Aripiprazole] 1 tab PO DAILY 09/09/19 Acetaminophen [Tylenol*] 650 mg PO BID 09/09/19 Amlodipine [Norvasc*] 10 mg PO DAILY 09/09/19 Ascorbic Acid [Vitamin C*] 1 tab PO DAILY 09/09/19 Benztropine Mesylate 1 tab PO DAILY 09/09/19 Buspirone HCl [Buspar*] 2.5 mg PO BEDTIME 09/09/19 Cholecalciferol (Vitamin D3) [Vitamin D3] 1 tab PO DAILY 09/09/19 Citalopram [Celexa*] 20 mg PO BEDTIME 09/09/19 Dextran 70/Hypromellose/Pf [Genteal Tears 0.1%-0.3% Drop] 1 drop EACH EYE BID 09/09/19 Divalproex [Depakote Sprinkle*] 3 cap PO TID 09/09/19 Docusate Sodium 1 tab PO DAILY 09/09/19 Donepezil [Aricept*] 10 mg PO BEDTIME 09/09/19 Famotidine [Pepcid*] 20 mg PO BEDTIME 09/09/19 Fenofibrate,Micronized [Fenofibrate] 134 mg PO DAILY 09/09/19 Fluticasone Propionate 1 spray IH BID 09/09/19 Gabapentin [Neurontin*] 100 mg PO TID 09/09/19 Lisinopril [Zestril] 40 mg PO DAILY 09/09/19 Loratadine [Claritin*] 1 tab PO DAILY 09/09/19 Melatonin 10 mg PO BEDTIME 09/09/19 Memantine HCl [Namenda*] 1 tab PO BID 09/09/19 Metoprolol Tartrate [Lopressor*] 1 tab PO BID 09/09/19 Multivitamin with Minerals [Multivitamins with Minerals] 1 tab PO DAILY 09/09/19 Oxybutynin Chloride 5 mg PO BID 09/09/19 Quetiapine [Seroquel*] 1 tab PO BID 09/09/19 Sennosides [Senna] 2 tab PO BEDTIME 09/09/19 Zinc Sulfate [Zinc Sulfate*] 1 cap PO DAILY 09/09/19 Aspirin [Aspirin EC 81 MG] 162 mg PO DAILY #60 tablet. 03/16/20 Atorvastatin Calcium [Lipitor] 80 mg PO BEDTIME #30 tab 03/16/20 Clopidogrel Bisulfate [Plavix] 75 mg PO DAILY #30 tablet 03/16/20 New Medications: Aspirin [Aspirin EC 81 MG] 162 mg PO DAILY #60 tablet. Atorvastatin Calcium [Lipitor] 80 mg PO BEDTIME #30 tab Clopidogrel Bisulfate [Plavix] 75 mg PO DAILY #30 tablet Diet: AHA Activity: Fall precautions Followup: NONE,NONE [Primary Care Provider] - 1-2 Days
[2020-03-16 18:28] VITALS: BP 114/60; TEMP 98.2
[2020-03-16] MEDS ORDERED: BUSPIRONE HCL 5 MG TABLET PO SCH (21:00)
[2020-03-16] MEDS ORDERED: DONEPEZIL HCL 5 MG TAB PO SCH (21:00)
[2020-03-16] MEDS ORDERED: CITALOPRAM 10 MG TABLET PO SCH (21:00)
[2020-03-16] MEDS ORDERED: ATORVASTATIN 80 MG TAB PO SCH (21:00)
[2020-03-16] MEDS ORDERED: ATORVASTATIN 20 MG TAB PO SCH (21:00)
== END 2020-03-16 18:28 ==
LOC: ER 00:41 → INTOOBSV 03:03 → ERHOLD 03:03
PROVIDERS: ADMIT Family Medicine; ATTEND Internal Medicine
DX: R41.82 Altered mental status, unspecified (principal); I69.354 Hemiplegia and hemiparesis following cerebral infarction affecting left non-dominant side; F03.91 Unspecified dementia, unspecified severity, with behavioral disturbance; F32.9 Major depressive disorder, single episode, unspecified; E11.9 Type 2 diabetes mellitus without complications; Z20.822 Contact with and (suspected) exposure to COVID-19; E78.5 Hyperlipidemia, unspecified; I10 Essential (primary) hypertension; F20.9 Schizophrenia, unspecified; Z79.4 Long term (current) use of insulin; K21.9 Gastro-esophageal reflux disease without esophagitis; R94.31 Abnormal electrocardiogram [ECG] [EKG]
CPT/HCPCS: 93005; 93306; 85025; 80048; 36415; 85610; 82947 ×4; 85730; 81003; 84484; 70450; 71045; 93880; 70551; 92610; 94760 ×2; 99285; U0003; J1650; J7030; G0378